=== PATIENT | female | born 1935 | race Caucasian/White ===

== ENCOUNTER → 2019-10-17 | Outpatient (CLI) | payer MEDICARE ==
--- NOTE | 2019-10-17 13:51 | BD ---
EXAMINATION TYPE: Axial Bone Density DATE OF EXAM: 10/17/2019 COMPARISON: NONE CLINICAL HISTORY: Height: 60.7 IN Weight: 190 LBS FRAX RISK QUESTIONS: Glucocorticoids (More than 3mos): YES 5 YEARS PREDNISONE PT DOES NOT KNOW DOSE (Ex: prednisone, prednisolone, methylprednisolone, dexamethasone, and hydrocortisone). History of Fracture in Adulthood: RT ANKLE AGE 59 Secondary Osteoporosis: 3. Menopause before 45: TOTAL HYST AGE 41 RISK FACTORS HISTORY OF: Surgery to Spine: YES L2-L3 AGE 54 Active: MODERATE Diet low in dairy products/other sources of calcium: YES Postmenopausal woman: TOTAL HYST AGE 41 Take estrogen and/or progesterone medications: NOT NOW How long: AGE 41-43 MEDICATIONS: Prednisone or other steroids: YES 5 YEARS PT DOESN'T KNOW DOSAGE Thyroid Medications: YES LEVOTHYROXIN How Lon+ YEARS Additional Medications: CALCIUM, VIT D, PREDNISONE, LEVOTHYROXINE, BLOOD PRESSURE MEDS, LOSARTAN, OM EPRAZOLE, HERBAL LAXATIVES, STOOL SOFTENERS, MULTI VIT, VIT C, Additional History: BREAST CANCER EXAM MEASUREMENTS: Bone mineral densitometry was performed using the [employer] System. Bone mineral density about the R hip (g/cm2): 0.657 Bone mineral density about the L hip (g/cm2): 0.654 T Score values are as follows: -----R Neck: -2.7 -----L Neck: -2.8 -----R Total: -2.6 -----L Total: -2.7 Bone mineral density BASELINE Bone mineral density about the L Wrist (g/cm2): 0.448 T Score values are as follows: -----Dist. R+U: -3.7 -----Prox. R+U: -2.7 -----Radius total: -3.7 Bone mineral density BASELINE IMPRESSION: Osteoporosis NOTE: T-SCORE=SD OF THE YOUNG ADULT MEAN.
== END | disposition home or self-care (01) ==
LOC: RADBDWWP 12:39
PROVIDERS: ATTEND Internal Medicine
DX: M81.8 Other osteoporosis without current pathological fracture (principal)
CPT/HCPCS: 77080

== ENCOUNTER → 2021-01-04 | Outpatient (CLI) | payer MEDICARE, OTHER | END | disposition home or self-care (01) | LOC: LABWHC1 10:36 | PROVIDERS: ATTEND Psychiatry & Neurology Neurology | DX: Z01.812 Encounter for preprocedural laboratory examination (principal); Z20.822 Contact with and (suspected) exposure to COVID-19 | CPT/HCPCS: U0003; C9803 ==

== ENCOUNTER 2022-01-15 19:47 | Inpatient (IN) | payer MEDICARE, OTHER ==
[2022-01-15] MEDS ORDERED: MORPHINE SULFATE 4 MG/ML SYRINGE IVP STA (19:56)
[2022-01-15] MEDS ORDERED: SODIUM CHLORIDE 0.9% 1,000 ML IV STA (19:56)
--- NOTE | 2022-01-15 20:05 | ED ---
General Adult HPI - General Chief complaint: Fall Stated complaint: Fall Time Seen by Provider: 01/15/22 19:48 Source: patient, EMS, RN notes reviewed, old records reviewed Mode of arrival: EMS Limitations: no limitations - History of Present Illness Initial comments: Patient is an 86-year-old female who presents emergency Department after a fall at home. Patient states she was sitting in a chair shortly prior to arrival when she stood up and she didn't trip, she didn't pass out, had no symptoms but fell to her right side and landed directly on her right hip. States she believes she broke it immediately. Denies any loss of consciousness. Uncertain if she hit her head. Denies any other injuries at this time. His no abdominal pain, chest pain, shortness of breath. Denies any blurry vision, weakness. He is neurovascularly intact in the right lower extremity. Is not on blood thinners. Presents for further evaluation at this time. Patient has a past medical history remarkable for hypertension, hyperlipidemia. Received fentanyl and route to the hospital. Patient's only acute complaint at this time is right hip pain. - Related Data Home Medications Medication Instructions Recorded Confirmed Alendronate Sodium [Fosamax] 70 mg PO SA 01/15/22 01/15/22 Ascorbic Acid [Vitamin C] 1,000 mg PO DAILY 01/15/22 01/15/22 Cholecalciferol [Vitamin D3 (25 25 mcg PO DAILY 01/15/22 01/15/22 Mcg = 1000 Iu)] Cyanocobalamin (Vitamin B-12) 1,000 mcg PO DAILY 01/15/22 01/15/22 [Vitamin B-12] Escitalopram [Lexapro] 10 mg PO DAILY 01/15/22 01/15/22 Estradiol Cream [Estrace Cream 1 gm VAGINAL TUFR 01/15/22 01/15/22 0.01%] Ferrous Sulfate [Feosol] 325 mg PO DAILY 01/15/22 01/15/22 Herbilax 2 cap PO HS 01/15/22 01/15/22 Levothyroxine Sodium [Synthroid] 50 mcg PO DAILY 01/15/22 01/15/22 Losartan [Cozaar] 50 mg PO DAILY 01/15/22 01/15/22 Metoprolol Tartrate [Lopressor] 25 mg PO BID 01/15/22 01/15/22 Multivitamins, Thera [Multivitamin 1 tab PO DAILY 01/15/22 01/15/22 (formulary)] Omeprazole 40 mg PO DAILY 01/15/22 01/15/22 Pravastatin Sodium [Pravachol] 40 mg PO HS 01/15/22 01/15/22 Temazepam [Restoril] 15 mg PO HS PRN 01/15/22 01/15/22 bisacodyL [Dulcolax] 10 mg PO HS 01/15/22 01/15/22 hydroCHLOROthiazide [Hydrodiuril] 12.5 mg PO DAILY 01/15/22 01/15/22 Allergies Allergy/AdvReac Type Severity Reaction Status Date / Time ciprofloxacin [From Cipro] Allergy Rash/Hives Verified 01/15/22 20:53 on entire body Review of Systems ROS Statement: Those systems with pertinent positive or pertinent negative responses have been documented in the HPI. Review of Systems: CONST: Denies fever EYES: Denies blurry vision ENT: Denies nasal congestion C/V: Denies Chest pain RESP: Denies shortness of breath GI: Denies abdominal pain : Denies dysuria SKIN: Denies rash. MSK: Endorses right hip pain. NEURO: Denies headache ROS Other: All systems not noted in ROS Statement are negative. Past Medical History Past Medical History: GERD/Reflux, Hyperlipidemia, Hypertension History of Any Multi-Drug Resistant Organisms: None Reported Past Surgical History: Appendectomy, Breast Surgery, Section, Hysterectomy Past Psychological History: No Psychological Hx Reported Smoking Status: Never smoker Past Alcohol Use History: None Reported Past Drug Use History: None Reported General Exam - General Exam Comments Initial Comments: General: Appears in mild to moderate distress secondary to right hip pain. HEAD: Normal with no signs of head trauma. EYES: PERRLA, EOMI, conjunctiva normal, no discharge. Pupils are 2 mm and equal bilaterally. ENT: Hearing grossly intact, normal oropharynx. RESPIRATORY: Clear breath sounds bilaterally. No wheezes, rales, or rhonchi. C/V: Regular rate and rhythm. S1 and S2 auscultated, no edema, peripheral puls es 2+ and intact throughout ABD: Abd is soft, nontender, nondistended EXT: Right leg is shortened, externally rotated and tenderness to palpation over the lateral aspect of the right hip. No midline cervical, thoracic, lumbar spine tenderness to palpation. Pelvis appears stable. SKIN: No rashes or lesions observed on exposed skin. NEURO: Alert and oriented x 4. Cranial nerves II-XII intact. No focal sensory or strength deficits. GCS of 15. Limitations: no limitations Course Vital Signs 01/15/22 01/15/22 01/15/22 19:49 21:32 22:43 Temperature 98.2 F 98.2 F Pulse Rate 60 59 L 58 L Respiratory 16 16 16 Rate Blood Pressure 150/68 109/53 O2 Sat by Pulse 99 99 97 Oximetry 01/16/22 01/16/22 01/16/22 00:43 03:00 04:00 Temperature Pulse Rate 59 L 69 Respiratory 16 16 14 Rate Blood Pressure 102/53 119/52 O2 Sat by Pulse 96 98 Oximetry 01/16/22 01/16/22 01/16/22 05:00 06:46 11:29 Temperature Pulse Rate 62 70 Respiratory 16 16 18 Rate Blood Pressure 135/60 132/62 O2 Sat by Pulse 98 97 Oximetry Medical Decision Making - Medical Decision Making Based on the patient's presentation and physical exam, I'm concerned for acute bony traumatic injury secondary to the fall. This includes right hip fracture. Patient did fall and is uncertain if she hit her head. Due to her age I did recommend we obtain CT imaging of the brain and C-spine as well. As we are obtaining CT imaging, we'll also obtain CT imaging of the right hip as it does appear obviously fractured. She was in agreement this plan. Trauma labs will be obtained. She'll be started on 1 L fluid bolus and given IV analgesia medications. She was in agreement this plan. She is neurovascularly intact distal to the injury. Vital signs within acceptable limits. Patient's laboratory studies are still pending at this time. Chest x-ray as interpreted by myself reveals no acute cardio pulmonary process, no acute infiltrate. No bony traumatic injury. CT brain and C-spine is interpreted by myself reveals no acute intracranial process, injury. No acute cervical spine injury. Radiology interpreted as showing nonspecific white matter changes of the brain which is chronic. There is also mild multilevel level degenerative disc disease. Patient's CT of the pelvis reveals a right hip fracture. Appears to be intertrochanteric. Radiology does agree with this read, rating it as a nondisplaced comminuted intertrochanteric fracture of the right femur and no evidence of intra-articular involvement. I updated the patient. She expressed understanding. She'll require surgery. Fournier catheter was placed. I spoke with the admitting orthopedic surgeon, Dr. Goodman cedeño who was in agreement this plan. Requested the patient be made nothing by mouth. We'll continue IV fluid hydration, pain medications. Likely surgery tomorrow. I will consult the patient's primary care physician, Dr. Hermosillo for medical management. I spoke with him over the phone and he agreed to consult. Patient was therefore admitted in stable condition. - Lab Data Result diagrams: 01/17/22 05:30 01/17/22 05:30 Disposition Clinical Impression: Fall, Nondisplaced intertrochanteric fracture of right femur Disposition: ADMITTED IP TO THIS [facility] Condition: Stable Time of Disposition: 20:59
--- NOTE | 2022-01-15 20:44 | CT ---
EXAMINATION TYPE: CT brain cspine wo con CT DLP: 1423.1 mGycm, Automated exposure control for dose reduction was used. DATE OF EXAM: 01/15/2022 8:36 PM COMPARISON: None.. CLINICAL INDICATION:Female, 86 years old with history of fall; FALL TECHNIQUE: Brain: Multiple axial CT images of the brain were obtained without IV contrast. Cspine: Axial CT images from the skull base to the inferior aspect of T2 we obtained without intraven ous contrast. Coronal and sagittal reformatted images were also reviewed. FINDINGS: Brain: Extra-axial spaces: No abnormal extra-axial fluid collections. Ventricular system: Dilatation in proportion to cerebral atrophy. Cerebral parenchyma: Cerebral atrophy. No acute intraparenchymal hemorrhage or mass effect. The heck -white junction is well differentiated. Scattered hypoattenuating areas are seen within the white mat ter. Cerebellum: Unremarkable. Mass effect: No evidence of midline shift. Intracranial vasculature: Atherosclerotic calcifications of the intracranial vessels. Soft tissues: Normal. Calvarium/osseous structures: No depressed skull fracture. Paranasal sinuses and mastoid air cells: Clear. Visualized orbits: Bilateral aphakia Cervical spine: Fracture: None. Osseous structures: Multilevel degenerative disc disease changes with endplate spurring and disc oste ophyte complex's. Bilateral uncovertebral hypertrophy. Vertebral alignment: Within normal limits. Spinal canal/Neural Foramina: No evidence of significant spinal canal narrowing. Multilevel neural fo raminal narrowing secondary to uncovertebral and facet hypertrophy. Neck soft tissues: Prevertebral soft tissues are within normal limits. Other: The airway is patent. The lung apices are clear. IMPRESSION: 1. No acute intracranial process. 2. Nonspecific white matter changes, likely secondary to chronic small vessel ischemic disease. 3. No evidence of cervical spine fracture. 4. Mild multilevel degenerative disc disease.
--- NOTE | 2022-01-15 20:52 | CT ---
EXAMINATION TYPE: CT pelvis wo con CT DLP: 519.6 mGycm, Automated exposure control for dose reduction was used. DATE OF EXAM: 01/15/2022 8:36 PM COMPARISON: None CLINICAL INDICATION:Female, 86 years old with history of fall. Please scan through mid right femur; F ALL. Pain in right hip TECHNIQUE: Axial CT of the pelvis. Sagittal and coronal reformats were created on a separate worksta tion. Contrast used: None Oral contrast used: without Oral Contrast FINDINGS: PELVIS BLADDER: Unremarkable REPRODUCTIVE: Uterus is absent BOWEL: Scattered diverticula are noted throughout the colon. No evidence of bowel obstruction as visu alized. PERITONEUM: No evidence of pneumoperitoneum or free fluid in the pelvis. VASCULATURE: Mild atherosclerotic calcifications are present throughout the abdominal aorta and its b ranches. No evidence of aortic aneurysm. MUSCULOSKELETAL: Complex comminuted right intertrochanteric fracture with mild foreshortening of the distal fracture margins (series 203, image 70). Femoral head maintains normal alignment with the righ t acetabulum. Multiple displaced osseous fragments, measures 3.8 cm in length (series 203, image 64). No evidence for intra-articular extension. No additional fractures noted. Degenerative and postsurgi melanie changes to the lumbar spine. LYMPH NODES: No gross evidence for lymphadenopathy. SOFT TISSUE/ABDOMINAL WALL: Fat-containing umbilical hernia. Postsurgical changes from prior ventral abdominal wall hernia repair are noted. Mild soft tissue swelling and intramuscular edema of the righ t hip. IMPRESSION: 1. Comminuted intertrochanteric fracture of the right femur without evidence for displacement or intr a-articular involvement. 2. Mild right hip intramuscular and soft tissue edema. 3. Colonic diverticulosis.
--- NOTE | 2022-01-15 20:54 | XR ---
EXAMINATION TYPE: XR chest 1V portable DATE OF EXAM: 01/15/2022 8:40 PM COMPARISON: No relevant priors. TECHNIQUE: XR chest 1V portable . CLINICAL INDICATION:Female, 86 years old with history of trauma; fall. Right hip pain. FINDINGS: Lungs/Pleura: There is no evidence of pleural effusion, focal consolidation, or pneumothorax. Pulmonary vascularity: Unremarkable. Heart/mediastinum: Cardiomediastinal silhouette is unremarkable. Atherosclerotic calcifications are seen in the aorta. Musculoskeletal: No acute osseous pathology. Other findings: Surgical clips project over the bilateral chest angeles. IMPRESSION: No acute cardiopulmonary disease/process.
[2022-01-15] MEDS ORDERED: ONDANSETRON 4 MG/2 ML VIAL IVP PRN (20:59)
[2022-01-15] MEDS ORDERED: NALOXONE 0.4 MG/ML 1 ML VIAL IV PRN (20:59)
[2022-01-15] MEDS ORDERED: NON FORMULARY DRUG (Alendronate Sodium [Fosamax] 70 MG Tablet) PO SCH (21:15)
[2022-01-15] MEDS: HEPARIN SODIUM,PORCINE/PF 5,000 UNIT/0.5 ML SYRINGE SQ SCH (21:31)
[2022-01-15] MEDS: SODIUM CHLORIDE 0.9% 1,000 ML IV SCH (21:31)
--- NOTE | 2022-01-15 21:36 | XR ---
EXAMINATION TYPE: XR femur RT DATE OF EXAM: 01/15/2022 9:27 PM INDICATION: Patient age:Female; 86 years old; Reason for study: fracture; COMPARISON: CT pelvis 01/15/2022 TECHNIQUE: The right femur was examined in 3 projections. FINDINGS: Comminuted intertrochanteric fracture of the right femoral neck with mild foreshortening of the dista l fracture margins. Medially displaced fracture fragment present. Right femoral head with normal alethea omical alignment. Distal femur is normal in appearance. Degenerative changes of the right knee joint which is otherwise normal in appearance. Surgical clips project over the right hemipelvis. IMPRESSION: Comminuted intertrochanteric fracture of the right femur without evidence for displacement.
[2022-01-15 21:38] LABS: Basophils % (A) 0 %; Eosinophils # (A) 0.1 k/uL (0-0.7); Eosinophils % (A) 1 %; HCT 34.7 % (34.0-46.0); HGB 12.3 gm/dL (11.4-16.0); Lymphocytes # (A) 1.2 k/uL (1.0-4.8); Lymphocytes % (A) 10 %; MCH 32.4 pg (25.0-35.0); MCHC 35.4 g/dL (31.0-37.0); MCV 91.5 fL (80.0-100.0); Mean Platelet Volume 7.9; Monocytes # (A) 0.5 k/uL (0-1.0); Monocytes % (A) 4 %; Neutrophils # (A) 10.1 k/uL (1.3-7.7); Neutrophils % (A) 84 %; Platelet Count 213 k/uL (150-450); RDW 12.9 % (11.5-15.5); WBC 12.1 k/uL (3.8-10.6)
[2022-01-15 22:02] LABS: ALT 19 U/L (4-34); AST 30 U/L (14-36); African American GFR (CKD) 41 (>60 ml/min/1.73 sqM); Albumin 4.5 g/dL (3.5-5.0); Alcohol <10 mg/dL; Alkaline Phosphatase 92 U/L (38-126); Anion Gap 10 mmol/L; Blood Urea Nitrogen 18 mg/dL (7-17); Calcium 9.3 mg/dL (8.4-10.2); Carbon Dioxide 23 mmol/L (22-30); Chloride 97 mmol/L (98-107); Glucose 116 mg/dL (74-99); Non-African American GFR(CKD) 36 (>60 ml/min/1.73 sqM); Potassium 3.9 mmol/L (3.5-5.1); Sodium 130 mmol/L (137-145); Total Bilirubin 0.3 mg/dL (0.2-1.3); Total Protein 7.3 g/dL (6.3-8.2)
[2022-01-15 22:18] LABS: Amphetamine Screen,Urine Not Detected (NotDetected); Barbiturate Screen,Urine Not Detected (NotDetected); Benzodiazepines Screen,Urine Detected (NotDetected); Cocaine Screen,Urine Not Detected (NotDetected); Methadone Screen, Urine Not Detected (NotDetected); Opiate Screen,Urine Detected (NotDetected); Oxycodone Screen, Urine Not Detected (NotDetected); Phencyclidine Screen,Urine Not Detected (NotDetected); Tricyclic Antidepressant,Urine Not Detected (NotDetected); Urn Cannabinoid Scrn Not Detected (NotDetected)
[2022-01-15 22:20] LABS: INR 0.9 (<1.2); Partial Thromboplastin Time 26.7 sec (22.0-30.0); Prothrombin Time 9.9 sec (9.0-12.0)
[2022-01-15] MEDS: methocarbamoL 750 MG TAB PO SCH (23:25)
[2022-01-15] MEDS: MORPHINE SULFATE 4 MG/ML SYRINGE IV PRN (23:27)
[2022-01-16] MEDS: MORPHINE SULFATE 4 MG/ML SYRINGE IV PRN ×3 (03:00→10:00)
[2022-01-16] MEDS: LEVOTHYROXINE 50 MCG TAB PO SCH (06:44)
[2022-01-16] MEDS: SODIUM CHLORIDE 0.9% 1,000 ML IV SCH ×2 (06:48→18:48)
[2022-01-16] MEDS ORDERED: TRANEXAMIC ACID 1,000 MG in SODIUM CHLORIDE 0.9% 100 ML IVPB ONE ×4 (07:00)
[2022-01-16 07:15] LABS: Basophils % (A) 0 %; Eosinophils % (A) 0 %; Lymphocytes # (A) 0.8 k/uL (1.0-4.8); Lymphocytes % (A) 8 %; MCH 32.3 pg (25.0-35.0); MCHC 34.9 g/dL (31.0-37.0); MCV 92.5 fL (80.0-100.0); Mean Platelet Volume 8.2; Monocytes # (A) 0.5 k/uL (0-1.0); Monocytes % (A) 5 %; Neutrophils # (A) 7.9 k/uL (1.3-7.7); Neutrophils % (A) 85 %; Platelet Count 204 k/uL (150-450); RBC 3.02 m/uL (3.80-5.40); RDW 13.3 % (11.5-15.5); WBC 9.2 k/uL (3.8-10.6)
[2022-01-16 07:27] LABS: Calcium 8.4 mg/dL (8.4-10.2); Potassium 4.2 mmol/L (3.5-5.1)
[2022-01-16 07:32] LABS: HGB 9.7 gm/dL (11.4-16.0)
--- NOTE | 2022-01-16 10:15 | P.CONS ---
History of Present Illness - Reason for Consult Consult date: 01/16/22 Medical management Requesting physician: Manoj Pickens - Chief Complaint right comminuted interchoanteric fracture - History of Present Illness This is an 86-year-old female patient who presents to the ER after sustaining a fall to her right hip. Patient reports she did not trip or fall or become dizzy she just lost her balance and fell directly on her right hip. X-ray completed showing commuted intertrochanter fracture of the right femur without evidence for displacement. CT of pelvis completed showing right hip fracture mild right hip intramuscular and soft tissue edema. Chest x-ray completed showing no acute cardiopulmonary process. Marking on her T of head and cervical spine completed showing no acute intracranial process nonspecific white matter changes likely secondary to chronic small vessel ischemic disease. No evidence of cervical spine fracture mild multilevel degenerative disc disease. Patient is currently resting comfortably in bed. Patient is complaining of intermittent pain to her right hip patient has been admitted to surgical services planned surgical intervention. Patient denies any history of SD, stroke or irregular heart rhy thm. Patient denies history of PE or DVT. Will order EKG. Patient denies chest pain or shortness of breath. Patient denies nausea vomiting or diarrhea. Patient denies any urinary burning or frequency. Temp 98.2, heart rate 62, respiratory rate 16, blood pressure 135/60 and pulse ox 98% on room air. Creatinine 1.13 but 16. Review of Systems please refer to HPI otherwise unremarkable Past Medical History Past Medical History: GERD/Reflux, Hyperlipidemia, Hypertension History of Any Multi-Drug Resistant Organisms: None Reported Past Surgical History: Appendectomy, Breast Surgery, Section, Hysterectomy Past Psychological History: No Psychological Hx Reported Smoking Status: Never smoker Past Alcohol Use History: None Reported Past Drug Use History: None Reported Medications and Allergies Home Medications Medication Instructions Recorded Confirmed Type Alendronate Sodium [Fosamax] 70 mg PO SA 01/15/22 01/15/22 History Ascorbic Acid [Vitamin C] 1,000 mg PO DAILY 01/15/22 01/15/22 History Cholecalciferol [Vitamin D3 (25 25 mcg PO DAILY 01/15/22 01/15/22 History Mcg = 1000 Iu)] Cyanocobalamin (Vitamin B-12) 1,000 mcg PO DAILY 01/15/22 01/15/22 History [Vitamin B-12] Escitalopram [Lexapro] 10 mg PO DAILY 01/15/22 01/15/22 History Estradiol Cream [Estrace Cream 1 gm VAGINAL TUFR 01/15/22 01/15/22 History 0.01%] Ferrous Sulfate [Feosol] 325 mg PO DAILY 01/15/22 01/15/22 History Herbilax 2 cap PO HS 01/15/22 01/15/22 History Levothyroxine Sodium [Synthroid] 50 mcg PO DAILY 01/15/22 01/15/22 History Losartan [Cozaar] 50 mg PO DAILY 01/15/22 01/15/22 History Metoprolol Tartrate [Lopressor] 25 mg PO BID 01/15/22 01/15/22 History Multivitamins, Thera [Multivitamin 1 tab PO DAILY 01/15/22 01/15/22 History (formulary)] Omeprazole 40 mg PO DAILY 01/15/22 01/15/22 History Pravastatin Sodium [Pravachol] 40 mg PO HS 01/15/22 01/15/22 History Temazepam [Restoril] 15 mg PO HS PRN 01/15/22 01/15/22 History bisacodyL [Dulcolax] 10 mg PO HS 01/15/22 01/15/22 History hydroCHLOROthiazide [Hydrodiuril] 12.5 mg PO DAILY 01/15/22 01/15/22 History Allergies Allergy/AdvReac Type Severity Reaction Status Date / Time ciprofloxacin [From Cipro] Allergy Rash/Hives Verified 01/15/22 20:53 on entire body Physical Exam Vitals: Vital Signs Temp Pulse Resp BP Pulse Ox 01/16/22 06:46 62 16 135/60 98 01/16/22 05:00 16 01/16/22 04:00 14 01/16/22 03:00 69 16 119/52 98 01/16/22 00:43 59 L 16 102/53 96 01/15/22 22:43 58 L 16 109/53 97 01/15/22 21:32 98.2 F 59 L 16 99 01/15/22 19:49 98.2 F 60 16 150/68 99 Intake and Output 01/15/22 01/16/22 01/16/22 22:59 06:59 14:59 Output Total 200 Balance -200 Output: Urine 200 Uretheral (Fournier) 200 Other: Weight 73.482 kg Head normocephalic Neck supple Lungs clear to auscultation bilaterally no wheezing or crackles Heart regular rate and rhythm S1-S2, no rub or gallop Abdomen is soft nontender nondistended positive bowel sounds no hepatosplenomegaly Extremities no edema Neuro alert and orientated to 3 Results CBC & Chem 7: 01/16/22 06:29 12 06:29 Labs: Abnormal Lab Results - Last 24 Hours (Table) 01/15/22 01/15/22 01/15/22 Range/Units 21:20 21:20 21:44 WBC 12.1 H (3.8-10.6) k/uL RBC (3.80-5.40) m/uL Hgb (11.4-16.0) gm/dL Hct (34.0-46.0) % Neutrophils # 10.1 H (1.3-7.7) k/uL Lymphocytes # (1.0-4.8) k/uL Sodium 130 L (137-145) mmol/L Chloride 97 L (98-107) mmol/L BUN 18 H (7-17) mg/dL Creatinine 1.33 H (0.52-1.04) mg/dL Glucose 116 H (74-99) mg/dL Urine Opiates Screen Detected H (NotDetected) U Benzodiazepines Scrn Detected H (NotDetected) 01/16/22 01/16/22 Range/Units 06:29 06:29 WBC (3.8-10.6) k/uL RBC 3.02 L (3.80-5.40) m/uL Hgb 9.7 L D (11.4-16.0) gm/dL Hct 28.0 L (34.0-46.0) % Neutrophils # 7.9 H (1.3-7.7) k/uL Lymphocytes # 0.8 L (1.0-4.8) k/uL Sodium 131 L (137-145) mmol/L Chloride (98-107) mmol/L BUN (7-17) mg/dL Creatinine 1.13 H (0.52-1.04) mg/dL Glucose 116 H (74-99) mg/dL Urine Opiates Screen (NotDetected) U Benzodiazepines Scrn (NotDetected) Assessment and Plan Assessment: 1. Right comminuted intertrochanter fracture. 2. History of fall without loss of consciousness 3. History of GERD 4. Essential hypertension 5. Hyperlipidemia Thank you for this consultation we will continue to follow patient closely throughout stay EKG ordered Repeat labs ordered Time with Patient: Greater than 30 (Greater than 60% of the total time spent in counseling and coordination of care)
--- NOTE | 2022-01-16 13:40 | P.PN ---
Progress Note - Text Progress Note Date: 01/16/22 Orthopedic Surgery Risk Review Mirna is a 86-year-old female presenting for evaluation of sudden onset right hip pain, inability to ambulate after . Standing. It was my pleasure to have seen and examined Mirna. In our visit today we have had a chance to go over subjective complaints, physical examination findings and treatments including the natural course history without intervention and various interventional options. her imaging demonstrates right intertrochanteric fracture 3 part displaced unstable. On physical exam, Mirnademonstrates pain with motion of right lower extremity, which is NV intact at this time. I have explained to the patient that this fracture needs stabilization. Based on the patients imaging, physical exam, and the rapid progression and disabling nature of her symptoms, at this time I recommend surgery in the form or a: right hip intramedullary nail fixation I discussed the risk and benefits of this procedure at length with Mirna and her . Questions were invited and answered, and the patient wishes to proceed as outlined below. Currently, I am recommendin. right hip intramedullary nail fixation 2. Review of surgical risks and benefits as well as an educational packet on the proposed surgical procedure. Risks: All surgical procedures come with inherent risks, including those related to positioning, anesthesia, intraoperative findings, and postoperative complications. It is important to understand that surgery does not come with any guarantee of a successful outcome as complications and adverse events are always possible. The patient was given a handout discussing the surgical procedure and risks associated with the intervention, both of which were discussed with the patient. These risks include but are not limited to the following: - Experiencing same, different or even worse symptoms compared to before surgery. - Requiring further surgery or other forms of treatment presently or at some time in the future . - On an extreme but fortunately relatively rare basis severe complication such as blindness, stroke, heart attack, temporary and/or permanent nerve injury, paralysis, coma, or may occur, sometimes without known explanation. - Surgical complications may include but are not limited to risk of infection, fluid accumulation in the surgical dissection site, including a seroma or hematoma, that requires additional surgery, wound drainage, bleeding, new numbness or weakness, vision changes/loss, spinal fluid leakage, non-healing and/or infected incision, headaches, difficulty or inability to swallow, hoarseness, hemopneumothorax, pneumothorax, injury to nerves, spinal cord, blood vessels, lymphatics or other vital organs (i.e., bowel injury, injury to the great vessels); heterotopic bone formation; complications related to the hardware such as screws, rods, including misplaced hardware, device failure, hardware fracture/breakage, or hardware loosening; retained surgical instrumentations or devices and the need for further surgery. - Medical risks of the planned surgery include but are not limited to generalized Infections to the whole body or local areas outside of the surgical site (sepsis), heart attack, bleeding, anaphylaxis, meningitis, seizure, epilepsy, hearing loss, burn farrar, laceration of the head or other areas of the body, bruising, hypersensitivity of the skin, bladder over distension; allergic reaction; shoulder injury related to positioning; fat, blood and air clots to other areas of the body like heart, lungs, brain; failure of internal organs such as lungs, kidneys, liver and excessive bleeding. If blood transfusions are necessary, note that transfusions may cause intolerance reactions such as anaphylaxis or other complex reactions. Despite best efforts, the results of surgery might not heal in terms of bone, soft tissues such as skin, fascia, ligaments, and joints. [facility] has multiple operating rooms with single and overlapping rooms running daily. They currently function under the required guidelines as produced by the [facility] with regards to the overlapping rooms and will continue to comply with changes to this policy as they occur. The requirements include and are complied with as follows: (1) the critical portions of the overlapping rooms will not occur at the same time, (2) the attending physician will be physically present during the critical portions of the procedure and immediately available during the entire case, and (3) a back-up attending is designated should the primary attending not be immediately available. The patient has had a chance to review all the listed information, has been given print outs detailing this information, and has had all his/her questions answered to their satisfaction. It was my pleasure to have seen and examined Mirna. In our visit today we have had a chance to go over my understanding of our patient's current condition, the natural course history without intervention and various interventional options. Questions were invited and answered, and the patient wishes to proceed as outlined above. I have seen and examined the patient for 25 minutes and we have spent more than 50% of the time in repeat and detailed counseling about the patient's condition, its natural course history with out and as much as can be predicted with surgery and re-review of various surgical treatment options. In conclusion, Mirna and her requested we proceed with the above suggested surgery and are willing to accept risks and limitations of the suggested surgery as nature of the disease process and our best attempts at treatment for the condition. Thank you again for allowing us to be part of your patient's care. Please don't hesitate to contact me if you have any further questions. Signed and authenticated by: Manoj Soto [facility] [address] [facility], [address] [address]
--- NOTE | 2022-01-16 13:52 | P.HPOR ---
History of Present Illness H&P Date: 01/16/22 Chief Complaint: Right intertrochanteric femur fracture Patient is a 6-year-old female who presented to [facility] on 01/15/2022 after falling and injuring the right lower extremity at home. Patient was brought to [facility] for further evaluation. Imaging test demonstrated a displaced and comminuted right intertrochanteric femur fracture. Patient was admitted under our orthopedic care with plan for surgical intervention. Internal medicine was consulted for management. Patient was evaluated today in the emergency room, her was present at bedside. She notes also pain in the right lower extremity with any movement. She denies any other orthopedic problems at this time. She had a previous right ankle fracture with hardware that was removed. She's had no surgery to the right hip she states. Side the right lower extremity, there is no other orthopedic complaints at this time. Denies any headaches, lightheadedness, chest pain, shortness of breath, fevers or chills, nausea or vomiting. Review of Systems Constitutional: Reports as per HPI Past Medical History Past Medical History: GERD/Reflux, Hyperlipidemia, Hypertension History of Any Multi-Drug Resistant Organisms: None Reported Past Surgical History: Appendectomy, Breast Surgery, Section, Hysterectomy Past Psychological History: No Psychological Hx Reported Smoking Status: Never smoker Past Alcohol Use History: None Reported Past Drug Use History: None Reported Medications and Allergies Home Medications Medication Instructions Recorded Confirmed Type Alendronate Sodium [Fosamax] 70 mg PO SA 01/15/22 01/15/22 History Ascorbic Acid [Vitamin C] 1,000 mg PO DAILY 01/15/22 01/15/22 History Cholecalciferol [Vitamin D3 (25 25 mcg PO DAILY 01/15/22 01/15/22 History Mcg = 1000 Iu)] Cyanocobalamin (Vitamin B-12) 1,000 mcg PO DAILY 01/15/22 01/15/22 History [Vitamin B-12] Escitalopram [Lexapro] 10 mg PO DAILY 01/15/22 01/15/22 History Estradiol Cream [Estrace Cream 1 gm VAGINAL TUFR 01/15/22 01/15/22 History 0.01%] Ferrous Sulfate [Feosol] 325 mg PO DAILY 01/15/22 01/15/22 History Herbilax 2 cap PO HS 01/15/22 01/15/22 History Levothyroxine Sodium [Synthroid] 50 mcg PO DAILY 01/15/22 01/15/22 History Losartan [Cozaar] 50 mg PO DAILY 01/15/22 01/15/22 History Metoprolol Tartrate [Lopressor] 25 mg PO BID 01/15/22 01/15/22 History Multivitamins, Thera [Multivitamin 1 tab PO DAILY 01/15/22 01/15/22 History (formulary)] Omeprazole 40 mg PO DAILY 01/15/22 01/15/22 History Pravastatin Sodium [Pravachol] 40 mg PO HS 01/15/22 01/15/22 History Temazepam [Restoril] 15 mg PO HS PRN 01/15/22 01/15/22 History bisacodyL [Dulcolax] 10 mg PO HS 01/15/22 01/15/22 History hydroCHLOROthiazide [Hydrodiuril] 12.5 mg PO DAILY 01/15/22 01/15/22 History Allergies Allergy/AdvReac Type Severity Reaction Status Date / Time ciprofloxacin [From Cipro] Allergy Rash/Hives Verified 01/15/22 20:53 on entire body Physical Examination Right lower extremity: Obvious shortening and external rotation of the extremity when compared to contralateral side Mild soft tissue swelling present in the proximal femur areas of ecchymosis. There is no obvious open skin lesions. Calf is soft, no tenderness with palpation. Plantar flexion dorsiflexion, EHL, FHL are intact. Range of motion along with knee range of motion was not assessed due to pain. Patient straight leg raise. Logroll maneuver obviously reproduces pain in the hip. Sensory exam to light touch throughout the extremity is intact, no focal deficits Dorsalis pedis pulses 2+ Results - Labs Labs: Abnormal Lab Results - Last 24 Hours (Table) 01/15/22 01/15/22 01/15/22 Range/Units 21:20 21:20 21:44 WBC 12.1 H (3.8-10.6) k/uL RBC (3.80-5.40) m/uL Hgb (11.4-16.0) gm/dL Hct (34.0-46.0) % Neutrophils # 10.1 H (1.3-7.7) k/uL Lymphocytes # (1.0-4.8) k/uL Sodium 130 L (137-145) mmol/L Chloride 97 L (98-107) mmol/L BUN 18 H (7-17) mg/dL Creatinine 1.33 H (0.52-1.04) mg/dL Glucose 116 H (74-99) mg/dL Urine Opiates Screen Detected H (NotDetected) U Benzodiazepines Scrn Detected H (NotDetected) 01/16/22 01/16/22 Range/Units 06:29 06:29 WBC (3.8-10.6) k/uL RBC 3.02 L (3.80-5.40) m/uL Hgb 9.7 L D (11.4-16.0) gm/dL Hct 28.0 L (34.0-46.0) % Neutrophils # 7.9 H (1.3-7.7) k/uL Lymphocytes # 0.8 L (1.0-4.8) k/uL Sodium 131 L (137-145) mmol/L Chloride (98-107) mmol/L BUN (7-17) mg/dL Creatinine 1.13 H (0.52-1.04) mg/dL Glucose 116 H (74-99) mg/dL Urine Opiates Screen (NotDetected) U Benzodiazepines Scrn (NotDetected) H & H 01/15/22 01/16/22 Range/Units 21:20 06:29 Hgb 12.3 9.7 L D (11.4-16.0) gm/dL Hct 34.7 28.0 L (34.0-46.0) % Coagulation 01/15/22 Range/Units 21:20 INR 0.9 (<1.2) Result Diagrams: 01/16/22 06:29 01/16/22 06:29 - Diagnostic results Hip x-ray: report reviewed, image reviewed (X-rays of the right hip and femur were reviewed. Images demonstrate an obvious displaced and comminuted right intertrochanteric femur fracture.) Assessment and Plan Assessment: Displaced and comminuted right intertrochanteric femur fracture Status post fall sustaining Other medical comorbidities Plan: I was able to discuss the case, this concluded the physical exam findings and imaging studies my attending Dr. Pickens. Discussed surgical interventions with the patient and family today bedside, this to include intramedullary nail fixation of the right intertrochanteric fracture. Risk and benefits of the procedure were discussed the patient, this to include but not excluded infection, blood loss, neurovascular injury, developmental blood clots, and adequate healing of bone, possible need for subsequent surgery. Patient and family are in good understanding and would like to proceed. Patient was made nothing by mouth since being admitted to the hospital, this has remained Medicines recommendations Pain control, will use of both oral and IV medications as needed DVT prophylaxis, subcu medication to start after surgery PT/OT after surgery Further recommendations to follow Time with Patient: Less than 30
[2022-01-16] MEDS ORDERED: PHENYLEPHRINE-0.9% NACL SYG 1,000 MCG/10 ML SYRINGE ONE (13:54)
[2022-01-16] MEDS ORDERED: TRANEXAMIC ACID IN NACL,ISO-OS 1,000 MG/100 ML BAG ONE (13:54)
[2022-01-16] MEDS ORDERED: KETAMINE 10 MG/ML 20 ML VIAL ONE (13:54)
[2022-01-16] MEDS ORDERED: SODIUM CHLORIDE 0.9% 1,000 ML IV ONE (13:54)
[2022-01-16] MEDS ORDERED: MIDAZOLAM 2 MG/2 ML VIAL ONE (13:54)
[2022-01-16] MEDS ORDERED: ceFAZolin 1,000 MG in SODIUM CHLORIDE 0.9% 1,000 ML IRRIGATION ONE (14:23)
[2022-01-16] MEDS ORDERED: LACTATED RINGERS 1,000 ML IV ONE (14:40)
[2022-01-16] MEDS ORDERED: Acetaminophen-Codeine 300-30mg TAB PO PRN (15:11)
[2022-01-16] MEDS ORDERED: HYDROmorphone 0.5 MG/0.5 ML SYRINGE IVP PRN (15:11)
[2022-01-16] MEDS ORDERED: HYDROcodone/APAP 5-325MG 1 EACH TAB PO PRN (15:11)
[2022-01-16] MEDS ORDERED: traMADol 50 MG TAB PO PRN (15:11)
[2022-01-16] MEDS ORDERED: MAGNESIUM HYDROXIDE 2,400 MG/10 ML CUP PO PRN (15:11)
[2022-01-16] MEDS: ESCITALOPRAM 10 MG TAB PO SCH (16:29)
[2022-01-16] MEDS: LOSARTAN 50 MG TAB PO SCH (16:30)
[2022-01-16] MEDS: hydroCHLOROthiazide 12.5 MG CAP PO SCH (16:30)
[2022-01-16] MEDS: PANTOPRAZOLE 40 MG TABLET PO SCH (16:30)
[2022-01-16] MEDS: methocarbamoL 750 MG TAB PO SCH ×4 (16:30→21:21)
[2022-01-16] MEDS: METOPROLOL TARTRATE 25 MG TAB PO SCH ×2 (16:30→20:49)
[2022-01-16] MEDS: HEPARIN SODIUM,PORCINE/PF 5,000 UNIT/0.5 ML SYRINGE SQ SCH ×2 (16:30→20:49)
--- NOTE | 2022-01-16 17:05 | XR ---
OR fluoroscopy right hip. COMPARISON: None. Fluoroscopy and fluoroscopic spot films were obtained demonstrating open reduction and internal fixat ion of an intertrochanteric fracture of the right hip. Following the procedure there appears to be ne ar anatomic alignment. Total exposure time was 1 minute and 9 seconds. The total dose area product in Gycm2 is 5.92 IMPRESSION: Fluoroscopic spot films and fluoroscopy was provided in the OR for open reduction internal fixation o f an intertrochanteric fracture of the right.
[2022-01-16] MEDS: HYDROcodone/APAP 7.5-325MG 1 EACH TAB PO PRN (18:14)
[2022-01-16] MEDS: HYDROmorphone 0.5 MG/0.5 ML SYRINGE IVP PRN (19:27)
[2022-01-16] MEDS: SENNOSIDES-DOCUSATE SODIUM 1 EACH TAB PO SCH (20:49)
[2022-01-16] MEDS: bisacodyL 5 MG TABLET.DR PO SCH (20:49)
[2022-01-16] MEDS: PRAVASTATIN SODIUM 40 MG TAB PO SCH (21:25)
[2022-01-17] MEDS: SODIUM CHLORIDE 0.9% 1,000 ML IV SCH ×2 (03:46→14:46)
[2022-01-17] MEDS: HYDROmorphone 0.5 MG/0.5 ML SYRINGE IVP PRN (03:46)
[2022-01-17] MEDS: LEVOTHYROXINE 50 MCG TAB PO SCH (06:12)
--- NOTE | 2022-01-17 07:27 | FL ---
Intraoperative/procedural fluoroscopic services were provided. Total fluoroscopy time is 1 minute wit h a total of 9 submitted images to PACS. Please see the operative/procedural note for further details .
--- NOTE | 2022-01-17 07:55 | P.OP ---
Date of Procedure: 01/16/22 Preoperative Diagnosis: 1. Right IT fracture, 3 part, displaced 2. s/p ffs Postoperative Diagnosis: 1. Right IT fracture, 3 part, displaced 2. s/p ffs Procedure(s) Performed: 1. Right hip intertrochanteric nail fixation with manipulation (02049) Implants: [employer] Intertan, Short, 13 x 125 Anesthesia: GETA Surgeon: Manoj Pickens [employer] Administrator #1: Alan Ash (Was present and assisted in all aspects of the case from positioniing to dressing placement) Estimated Blood Loss (ml): 100 IV fluids (ml): 300 Urine output (ml): 350 Pathology: none sent Condition: stable Disposition: PACU Indications for Procedure: Mirna is a 86-year-old female presenting for evaluation of sudden onset right hip pain, inability to ambulate after . Standing. It was my pleasure to have seen and examined Mirna. In our visit today we have had a chance to go over subjective complaints, physical examination findings and treatments including the natural course history without intervention and various interventional options. her imaging demonstrates right intertrochanteric fracture 3 part displaced unstable. On physical exam, Mirnademonstrates pain with motion of right lower extremity, which is NV intact at this time. I have explained to the patient that this fracture needs stabilization. Based on the patients imaging, physical exam, and the rapid progression and disabling n ature of her symptoms, at this time I recommend surgery in the form or a: right hip intramedullary nail fixation I discussed the risk and benefits of this procedure at length with Mirna and her . Questions were invited and answered, and the patient wishes to proceed as outlined below. Currently, I am recommendin. right hip intramedullary nail fixation Description of Procedure: The patient was seen and examined in the preoperative area. All preoperative protocols were followed. Informed consent was obtained risks and benefits of the procedure were discussed at length. Risks including bleeding infection damage to the surrounding tissue and risk of reoperation were discussed with the patient. Risk of anesthesia up to and including was a discussed with the patient. These are outlined in the risk reviewed. They were willing to accept these risks and all of the risks of surgery. The patient was given a weight- based dose of antibiotics in the form of 2 g Ancef. The patient was seen and evaluated by the anesthesia team who deemed them fit for surgery. The site was marked, the patient was willing to proceed with the procedure. The patient was transferred to the operative suite by the Department of anesthesia. There were then drifted off to sleep by the department of anesthesia and spinal with sedation anesthesia was used. Once adequate anesthesia had been obtained the patient was carefully transferred to the operative bed. All bony prominences were padded accordingly. SCDs were placed on the nonoperative lower extremities. Arms were well padded. patient was carefully placed on a hand table right leg was placed ahead of the left leg was placed in a well leg hurst she was secured to the table and post was secured. Gentle traction and internal rotation and abduction of the right hip was performed for reduction maneuver. C-arm confirmed good position Preoperative briefing was done with the operative team and everyone was ready for the procedure to start. The patients right leg was then prepped and draped in the normal sterile fashion. Timeout was then performed and all parties in agreement with the procedure to be performed. 2 same or skin incision was made 2 cm above the greater trochanter blunt dissection taken down to palpate the greater trochanter the sharp awl was then used to access the femoral canal than ideal starting point on AP and lateral fluoroscopy. Once this was accomplished to guidewire was passed into the femur. This is confirming good position on AP and lateral. Opening reamer was then placed over this followed by sequential reaming. We then selected a 125 short nail to be placed. This was placed over the ball-tipped guidewire and packed in position under AP and lateral fluoroscopy until was not ideal position. We then placed the jig for the lag screw skin incision was made and blunt dissection taken down of the femur over the lateral aspect and the jig was secured next to bone. guide pin Was then placed and confirmed to be within 10 mm under AP and lateral fluoroscopy and center center within the head and neck. We then measured and drilled for the compression screw followed by the lag screw these were then placed we did obtain about 5 mm of compression of the fracture which helped with alignment. We then turned our attention distally to the static locking hole through the jig a guide was placed skin neck was made and the guide was secured next of bone. Then drilled and measured for a distal locking screw. We locked the nail proximally we took final imaging confirming all placement of screws and hardware in good position. Outrigger jig was then removed. We copiously irrigated the wound with normal sterile saline deep fascia was closed with 0 Vicryl superficial fascia closed with 2-0 Vicryl and skin closed skin candido. The wound was then dressed sterilely with Opteform dressings. The patient was then transferred back to their hospital bed. There were awakened by department of anesthesia having tolerated the procedure very well with no complications. The patient was then transported to the postoperative care unit in stable condition.
--- NOTE | 2022-01-17 07:58 | P.PN ---
Subjective Progress Note Date: 01/17/22 Principal diagnosis: rright IT fracture patient seen and examined she doing fairly well she has not been up. She complains of pain in her hip with motion. She complains of spasm in her leg. She denies fevers chills or chest pain overnight. Objective - Vital Signs Vital signs: Vital Signs Temp 100.4 F H 01/17/22 04:58 Pulse 73 01/17/22 04:58 Resp 16 01/17/22 04:58 BP 107/68 01/17/22 04:58 Pulse Ox 92 L 01/17/22 07:49 FiO2 Intake & Output 01/16/22 01/17/22 01/17/22 18:59 06:59 18:59 Intake Total 601 1200 Output Total 900 475 Balance -299 725 Weight 73.482 kg Intake: IV 601 Intake, IV Titration 1200 Amount Sodium Chloride 0.9% 1, 1200 000 ml @ 100 mls/hr IV . Q10H REBECA Rx#:[id number] Output: Urine 800 475 Estimated Blood Loss 100 Other: Voiding Method Indwelling Catheter - Exam Physical Exam: -Patient is alert and oriented 3 appears well-nourished well-hydrated is in no acute distress. They do not appear septic. -There is TTP right hip and incision [-Incision is CDI, no EEE, no drainage] -Upper extremities show [5] out of 5 strength in all major muscle groups. [##EXCEPT] -Lower extremities with [5] out of 5 strength in all major muscle groups except right lower extremity secondary to pain -There is [FROM] that is [painless] of the b/l UE and LE in all major joints. except right lower extremity secondary to pain -They are intact to light touch sensation in C5 to T1 and L2 to S1 nerve distribution. -DTR [2]/4 all upper and lower extremities -Patient has palpable distal pulses all 4 ext -Compartments are soft and compressible. -Patient shows a negative Libby's [-Neg Hoffmans b/l] [-Neg Clonus b/l] [-Neg babinski b/l] Cranial nerves II through XII are grossly intact. - Labs CBC & Chem 7: 01/16/22 06:29 01/16/22 06:29 Assessment and Plan Assessment: a 86-year-old female postop day 1 right intramedullary nail fixation for right IT fracture status post fall from standing Plan: -weightbearing as tolerated right lower extremity - pain control when necessary - GI prophylaxis - chemo DVT prophylaxis 4 weeks - PT OT daily, increase strength ambulation and gait - medical management - GUILHERME when appropriate
[2022-01-17] MEDS: methocarbamoL 750 MG TAB PO SCH (08:49)
[2022-01-17] MEDS: METOPROLOL TARTRATE 25 MG TAB PO SCH ×2 (08:49→20:36)
[2022-01-17] MEDS: hydroCHLOROthiazide 12.5 MG CAP PO SCH (08:49)
[2022-01-17] MEDS: PANTOPRAZOLE 40 MG TABLET PO SCH (08:49)
[2022-01-17] MEDS: HEPARIN SODIUM,PORCINE/PF 5,000 UNIT/0.5 ML SYRINGE SQ SCH ×2 (08:49→20:36)
[2022-01-17] MEDS: ESCITALOPRAM 10 MG TAB PO SCH (08:50)
[2022-01-17] MEDS: LOSARTAN 50 MG TAB PO SCH (08:50)
[2022-01-17 09:01] LABS: African American GFR (CKD) 52.3 (60.0-200.0); Albumin 3.4 g/dL (3.8-4.9); Anion Gap 9.2 mmol/L (10.00-18.00); BUN/Creat Ratio 11.82 Ratio (12.00-20.00); Calcium 8.4 mg/dL (8.7-10.3); Carbon Dioxide 22.8 mmol/L (20.0-27.5); Globulin 1.7 g/dL (1.6-3.3); Non-African American GFR(CKD) 45.1 (60.0-200.0); Total Bilirubin 0.2 mg/dL (0.30-1.20); Total Protein 5.1 g/dL (6.2-8.2)
[2022-01-17 09:27] LABS: Basophils # (A) 0.02 X 10*3/uL (0.00-0.10); Basophils % (A) 0.2 %; Eosinophils # (A) 0 X 10*3/uL (0.04-0.35); Eosinophils % (A) 0 %; HCT 23.2 % (37.2-46.3); HGB 7.5 g/dL (12.0-15.0); Immature Grans, Automated 0.3 %; Lymphocytes # (A) 0.75 X 10*3/uL (0.90-5.00); Lymphocytes % (A) 8.4 %; MCH 31.5 pg (27.0-32.0); MCHC 32.3 g/dL (32.0-37.0); MCV 97.5 fL (80.0-97.0); Mean Platelet Volume 9.9 fL (9.5-12.2); Monocytes # (A) 1.02 X 10*3/uL (0.20-1.00); Monocytes % (A) 11.4 %; NRBC Per 100 WBC 0 /100 WBCS (0.0-0.0); Neutrophils # (A) 7.09 X 10*3/uL (1.80-7.70); Neutrophils % (A) 79.7 %; Platelet Count 176 X 10*3/uL (140-440); RBC 2.38 X 10*6/uL (4.10-5.20); RDW 13.4 % (11.5-14.5); WBC 8.91 X 10*3/uL (4.50-10.00)
[2022-01-17] MEDS: HYDROcodone/APAP 7.5-325MG 1 EACH TAB PO PRN ×2 (09:54→18:43)
[2022-01-17] MEDS: CYCLOBENZAPRINE 5 MG TAB PO PRN (18:43)
--- NOTE | 2022-01-17 19:25 | P.PN ---
Subjective Progress Note Date: 01/17/22 This is an 86-year-old female patient who presents to the ER after sustaining a fall to her right hip. Patient reports she did not trip or fall or become dizzy she just lost her balance and fell directly on her right hip. X-ray completed showing commuted intertrochanter fracture of the right femur without evidence for displacement. CT of pelvis completed showing right hip fracture mild right hip intramuscular and soft tissue edema. Chest x-ray completed showing no acute cardiopulmonary process. Marking on her T of head and cervical spine completed showing no acute intracranial process nonspecific white matter changes likely secondary to chronic small vessel ischemic disease. No evidence of cervical spine fracture mild multilevel degenerative disc disease. Patient is currently resting comfortably in bed. Patient is complaining of intermittent pain to her right hip patient has been admitted to surgical services planned surgical intervention. Patient denies any history of [place], stroke or irregular heart rhythm. Patient denies history of PE or DVT. Will order EKG. Patient denies chest pain or shortness of breath. Patient denies nausea vomiting or diarrhea. Patient denies any urinary burning or frequency. Temp 98.2, heart rate 62, respiratory rate 16, blood pressure 135/60 and pulse ox 98% on room air. Creatinine 1.13 but 16. On 01/17/2022 patient was seen and examined on the medical floor she is alert and oriented 3 in no distress there is no fever or chills no headache or dizziness no chest pain no shortness of breath no cough no nausea or vomiting no abdominal pain no diarrhea and no urinary symptoms. Vital exam reveals a temperature of 99.6 pulse 64 respiration 18 and blood pressure 94/60 pulse ox 91% on room air. Laboratory data reveals a white blood count of 8.9 hemoglobin 7.5 platelet count 176 sodium 134 potassium 4.0 chloride 102 CO2 22.8 BUN 13 and creatinine 1.1 patient underwent right hip intertrochanteric nail fixation with manipulation yesterday. For DVT prophylaxis she is maintained on subcu heparin Objective - Vital Signs Vital signs: Vital Signs Temp 99.6 F 01/17/22 11:12 Pulse 64 01/17/22 11:12 Resp 18 01/17/22 11:12 BP 94/60 01/17/22 11:12 Pulse Ox 91 L 01/17/22 11:12 FiO2 Intake & Output 01/16/22 01/17/22 01/17/22 18:59 06:59 18:59 Intake Total 601 1200 Output Total 900 475 300 Balance -299 725 -300 Weight 73.482 kg Intake: IV 601 Intake, IV Titration 1200 Amount Sodium Chloride 0.9% 1, 1200 000 ml @ 100 mls/hr IV . Q10H [facility] Rx#:[id number] Output: Urine 800 475 300 Estimated Blood Loss 100 Other: Voiding Method Indwelling Catheter Indwelling Catheter - Exam In general patient is alert and oriented x 3 in no distress HEENT head normocephalic and atraumatic Neck is supple no JVD no goiter no lymphadenopathy no carotid bruit Chest examination is clear to auscultation no crackles no wheezing Cardiac exam reveals regular heart sounds S1 and S2 no gallops no murmurs Abdomen is soft nontender no organomegaly with normal bowel sounds Extremity exam reveals no edema no cyanosis or clubbing Neurological examination reveals no gross focal deficits - Labs CBC & Chem 7: 01/17/22 05:30 01/17/22 05:30 Labs: Abnormal Lab Results - Last 24 Hours (Table) 01/17/22 01/17/22 Range/Units 05:30 05:30 RBC 2.38 L (4.10-5.20) X 10*6/uL Hgb 7.5 L (12.0-15.0) g/dL Hct 23.2 L (37.2-46.3) % MCV 97.5 H (80.0-97.0) fL Lymphocytes # 0.75 L (0.90-5.00) X 10*3/uL Monocytes # 1.02 H (0.20-1.00) X 10*3/uL Eosinophils # 0 L (0.04-0.35) X 10*3/uL Sodium 134 L (135-145) mmol/L Anion Gap 9.20 L (10.00-18.00) mmol/L Est GFR (CKD-EPI)AfAm 52.3 L (60.0-200.0) Est GFR (CKD-EPI)NonAf 45.1 L (60.0-200.0) BUN/Creatinine Ratio 11.82 L (12.00-20.00) Ratio Glucose 111 H (70-110) mg/dL Calcium 8.4 L (8.7-10.3) mg/dL Total Bilirubin 0.20 L (0.30-1.20) mg/dL Total Protein 5.1 L (6.2-8.2) g/dL Albumin 3.4 L (3.8-4.9) g/dL Assessment and Plan Assessment: 1. Right comminuted intertrochanter fracture. 2. History of fall without loss of consciousness 3. History of GERD 4. Essential hypertension 5. Hyperlipidemia Thank you for this consultation we will continue to follow patient closely throughout stay EKG ordered Repeat labs ordered
[2022-01-17] MEDS: SENNOSIDES-DOCUSATE SODIUM 1 EACH TAB PO SCH (20:36)
[2022-01-17] MEDS: bisacodyL 5 MG TABLET.DR PO SCH (20:36)
[2022-01-17] MEDS: PRAVASTATIN SODIUM 40 MG TAB PO SCH (20:36)
[2022-01-18] MEDS: SODIUM CHLORIDE 0.9% 1,000 ML IV SCH ×3 (00:16→21:56)
[2022-01-18] MEDS: LEVOTHYROXINE 50 MCG TAB PO SCH (04:54)
[2022-01-18] MEDS: HEPARIN SODIUM,PORCINE/PF 5,000 UNIT/0.5 ML SYRINGE SQ SCH ×2 (09:32→21:40)
[2022-01-18] MEDS: LOSARTAN 50 MG TAB PO SCH (09:32)
[2022-01-18] MEDS: METOPROLOL TARTRATE 25 MG TAB PO SCH ×2 (09:32→21:40)
[2022-01-18] MEDS: PANTOPRAZOLE 40 MG TABLET PO SCH (09:32)
[2022-01-18] MEDS: hydroCHLOROthiazide 12.5 MG CAP PO SCH (09:33)
[2022-01-18] MEDS: ESCITALOPRAM 10 MG TAB PO SCH (10:01)
--- NOTE | 2022-01-18 10:26 | P.PN ---
Subjective Progress Note Date: 01/18/22 Principal diagnosis: Right hip IT fracture Patient was seen at bedside this morning lying in bed semirecumbent position. Patient says she is having spasms in her leg at this time. Patient says physical therapy has not been up yet this morning. Patient says she did work with physical therapy yesterday morning and was able to stand at bedside. Patient says she does live at home alone. Patient says before this injury she did ambulate independently. Patient says her daughter and son-in-law are coming up from [place] to help with her at home. Patient does want to go home. Patient is understanding that if she is not able progress with therapy she is okay with the idea of going to rehab. Patient denies chest pain, fever, shortness breath, nausea, vomiting, change in vision, loss of bowel/bladder control. Objective - Vital Signs Vital signs: Vital Signs Temp 98.7 F 01/18/22 05:00 Pulse 79 01/18/22 05:00 Resp 16 01/18/22 05:00 BP 135/76 01/18/22 05:00 Pulse Ox 96 01/18/22 07:32 FiO2 Intake & Output 01/17/22 01/18/22 01/18/22 18:59 06:59 18:59 Intake Total 200 Output Total 300 150 Balance -300 50 Intake: Oral 200 Output: Urine 300 150 Other: Voiding Method Indwelling Catheter Bedpan - Exam There is some spotting present over surgical dressings on right hip. Negative for any significant drainage. There is ecchymosis present along the right lateral hip as well as right ankle. Sensation is equal, symmetric, bilaterally intact throughout the upper and lower extremities. Patient does have tenderness to patient over the right lateral hip and right lateral malleolus. Nontender to palpation throughout rest exam. Patient does have some limted ROM in RUE in shoulder abduction and forward elev due to pain. Full ROM in LUE in shoulder in abduction and forward elevation in left elbow flexion extension in left wrist flexion/extension. Range of motion right elbow flexion/extension and wrist flexion/extension. Full range of motion left lower extremity and hip flexion/extension and knee flexion/extension and left ankle dorsi and plantarflexion. Limited range of motion in right hip flexion/extension due to pain. Range of motion right knee in flexion and extension due to pain. Full range of motion right ankle in dorsi and plantarflexion. Left upper extremity 4+/5 in all major motor groups. LLE 4+/5 in all majpr motor groups. Right lower extremity 3/5 in resisted knee flexion and extension and right hip flexion/extension. 4-/5 in resisted right ankle dorsi/plantar flexion. Neurovascular status intact bilaterally. Cap refill under 3 seconds in digits of UE. radial pulses intact, 2+ bilaterally. Negative Homans bilaterally. - Labs CBC & Chem 7: 01/17/22 05:30 01/17/22 05:30 Assessment and Plan Assessment: 1. Right hip IT fracture -Postoperative day #2 status post right hip IM nail Plan: 1. Right hip IT fracture - right hip IM nail surgery performed sen, 01/16/2022. Patient still bedside this morning. Plan is to work travel physical therapist apy later this morning. Plan is to determine if patient is stable enough to go home with home care versus rehab. Patient does want to go home. 2. Appreciate medical management 3. Pain management - [place]; tramadol; Flexeril 4. DVT prophylaxis - Heparin 5. GI prophylaxis - senna; Colace; milk of mag 6. PT/OT - weightbearing as tolerated with walker 7. Encourage incentive spirometer use 8. Discharge planning - home with health services versus rehab tmrw vs Time with Patient: Less than 30
[2022-01-18] MEDS: DOCUSATE 100 MG CAP PO SCH ×2 (10:40→21:41)
[2022-01-18 11:50] LABS: Basophils % (A) 0 %; Eosinophils # (A) 0.1 k/uL (0-0.7); Eosinophils % (A) 1 %; HCT 21.5 % (34.0-46.0); Lymphocytes # (A) 0.7 k/uL (1.0-4.8); Lymphocytes % (A) 7 %; MCH 32.4 pg (25.0-35.0); MCHC 35.3 g/dL (31.0-37.0); MCV 91.8 fL (80.0-100.0); Mean Platelet Volume 8.4; Monocytes # (A) 0.4 k/uL (0-1.0); Monocytes % (A) 4 %; Neutrophils # (A) 8.5 k/uL (1.3-7.7); Neutrophils % (A) 87 %; Platelet Count 179 k/uL (150-450); RBC 2.34 m/uL (3.80-5.40); RDW 13.6 % (11.5-15.5); WBC 9.8 k/uL (3.8-10.6)
[2022-01-18 11:52] LABS: HGB 7.6 gm/dL (11.4-16.0)
[2022-01-18] MEDS: CYCLOBENZAPRINE 5 MG TAB PO PRN (15:46)
--- NOTE | 2022-01-18 16:40 | P.PN ---
Subjective Progress Note Date: 01/18/22 This is an 86-year-old female patient who presents to the ER after sustaining a fall to her right hip. Patient reports she did not trip or fall or become dizzy she just lost her balance and fell directly on her right hip. X-ray completed showing commuted intertrochanter fracture of the right femur without evidence for displacement. CT of pelvis completed showing right hip fracture mild right hip intramuscular and soft tissue edema. Chest x-ray completed showing no acute cardiopulmonary process. Marking on her T of head and cervical spine completed showing no acute intracranial process nonspecific white matter changes likely secondary to chronic small vessel ischemic disease. No evidence of cervical spine fracture mild multilevel degenerative disc disease. Patient is currently resting comfortably in bed. Patient is complaining of intermittent pain to her right hip patient has been admitted to surgical services planned surgical intervention. Patient denies any history of [place], stroke or irregular heart rhythm. Patient denies history of PE or DVT. Will order EKG. Patient denies chest pain or shortness of breath. Patient denies nausea vomiting or diarrhea. Patient denies any urinary burning or frequency. Temp 98.2, heart rate 62, respiratory rate 16, blood pressure 135/60 and pulse ox 98% on room air. Creatinine 1.13 but 16. On 01/17/2022 patient was seen and examined on the medical floor she is alert and oriented 3 in no distress there is no fever or chills no headache or dizziness no chest pain no shortness of breath no cough no nausea or vomiting no abdominal pain no diarrhea and no urinary symptoms. Vital exam reveals a temperature of 99.6 pulse 64 respiration 18 and blood pressure 94/60 pulse ox 91% on room air. Laboratory data reveals a white blood count of 8.9 hemoglobin 7.5 platelet count 176 sodium 134 potassium 4.0 chloride 102 CO2 22.8 BUN 13 and creatinine 1.1 patient underwent right hip intertrochanteric nail fixation with manipulation yesterday. For DVT prophylaxis she is maintained on subcu heparin On 01/18/2022 patient was seen and examined on the medical floor she is alert and oriented 3 in no apparent distress, is at the bedside, she is still complaining of hip pain and difficulty with movement she is still and able to s tand or walk, she was complaining of constipation otherwise she denies any complaints there is no fever or chills no headache or dizziness no chest pain no shortness of breath no cough no nausea or vomiting no abdominal pain no diarrhea and no urinary symptoms. White blood count today is 9.8 hemoglobin 7.6 platelet count 179 Objective - Vital Signs Vital signs: Vital Signs Temp 98.7 F 01/18/22 05:00 Pulse 79 01/18/22 05:00 Resp 16 01/18/22 05:00 BP 135/76 01/18/22 05:00 Pulse Ox 96 01/18/22 07:32 FiO2 Intake & Output 01/17/22 01/18/22 01/18/22 18:59 06:59 18:59 Intake Total 200 Output Total 300 150 Balance -300 50 Intake: Oral 200 Output: Urine 300 150 Other: Voiding Method Indwelling Catheter Bedpan - Exam In general patient is alert and oriented x 3 in no distress HEENT head normocephalic and atraumatic Neck is supple no JVD no goiter no lymphadenopathy no carotid bruit Chest examination is clear to auscultation no crackles no wheezing Cardiac exam reveals regular heart sounds S1 and S2 no gallops no murmurs Abdomen is soft nontender no organomegaly with normal bowel sounds Extremity exam reveals no edema no cyanosis or clubbing Neurological examination reveals no gross focal deficits - Labs CBC & Chem 7: 01/18/22 11:01 01/17/22 05:30 Labs: Abnormal Lab Results - Last 24 Hours (Table) 01/17/22 01/17/22 Range/Units 05:30 05:30 RBC 2.38 L (4.10-5.20) X 10*6/uL Hgb 7.5 L (12.0-15.0) g/dL Hct 23.2 L (37.2-46.3) % MCV 97.5 H (80.0-97.0) fL Lymphocytes # 0.75 L (0.90-5.00) X 10*3/uL Monocytes # 1.02 H (0.20-1.00) X 10*3/uL Eosinophils # 0 L (0.04-0.35) X 10*3/uL Sodium 134 L (135-145) mmol/L Anion Gap 9.20 L (10.00-18.00) mmol/L Est GFR (CKD-EPI)AfAm 52.3 L (60.0-200.0) Est GFR (CKD-EPI)NonAf 45.1 L (60.0-200.0) BUN/Creatinine Ratio 11.82 L (12.00-20.00) Ratio Glucose 111 H (70-110) mg/dL Calcium 8.4 L (8.7-10.3) mg/dL Total Bilirubin 0.20 L (0.30-1.20) mg/dL Total Protein 5.1 L (6.2-8.2) g/dL Albumin 3.4 L (3.8-4.9) g/dL Assessment and Plan Assessment: 1. Right comminuted intertrochanter fracture. 2. History of fall without loss of consciousness 3. History of GERD 4. Essential hypertension 5. Hyperlipidemia Thank you for this consultation we will continue to follow patient closely throughout stay EKG ordered Repeat labs ordered
[2022-01-18] MEDS: HYDROcodone/APAP 7.5-325MG 1 EACH TAB PO PRN (17:56)
[2022-01-18] MEDS: FERROUS SULFATE 325 MG TAB PO SCH (17:56)
[2022-01-18] MEDS: bisacodyL 5 MG TABLET.DR PO SCH (21:40)
[2022-01-18] MEDS: SENNOSIDES-DOCUSATE SODIUM 1 EACH TAB PO SCH (21:41)
[2022-01-18] MEDS: TEMAZEPAM 15 MG CAP PO PRN (21:57)
[2022-01-18] MEDS: PRAVASTATIN SODIUM 40 MG TAB PO SCH (22:28)
[2022-01-19] MEDS: LEVOTHYROXINE 50 MCG TAB PO SCH (06:39)
[2022-01-19] MEDS: SODIUM CHLORIDE 0.9% 1,000 ML IV SCH ×2 (08:00→17:27)
--- NOTE | 2022-01-19 08:36 | P.PN ---
Subjective Progress Note Date: 01/19/22 Principal diagnosis: Right hip IT fracture Patient seen and examined at bedside. Patient was resting comfortable in bed. Patient states her pain is managed on current regimen. She states that she has been up with physical therapy utilizing walker. Patient states she's had some difficulty due to generalized weakness and a "heavy feeling" in right lower extremity. Explained to patient this is due to the procedure and it will just take time. Patient verbalizes understanding. Dressing will be changed prior to discharge to [facility]. Patiently currently denies any fevers/chills, nausea/vomiting, or chest pain. Objective - Vital Signs Vital signs: Vital Signs Temp 99.3 F 01/19/22 04:53 Pulse 89 01/19/22 04:53 Resp 16 01/19/22 04:53 BP 167/67 01/19/22 04:53 Pulse Ox 94 L 01/19/22 04:53 FiO2 Intake & Output 01/18/22 01/19/22 01/19/22 18:59 06:59 18:59 Output Total 600 Balance -600 Output: Urine 600 Other: Voiding Method External Catheter External Catheter # Bowel Movements 1 - Exam Physical Examination General: The patient is awake and alert, in no acute distress Skin: Skin is warm and dry with no obvious rashes or lesions. Hairy patches absent, no dorsal skin dimples, no cafe au lait spots. Surgical incision to right hip, some old spotting noted on dressing. Eye: Pupils are equal, round and reactive to light, extra-ocular movements are intact; there is normal conjunctiva bilaterally. Neck: The neck is supple, there is no tenderness and ROM intact. Cardiovascular: There is a regular rate and rhythm. No murmur, rub or gallop is appreciated. Respiratory: Lungs are clear to auscultation, respirations are non-labored, breath sounds are equal. Gastrointestinal: Soft, non-distended, non-tender abdomen. Musculoskeletal: ROM limited secondary to pain and stiffness from surgical procedure. Muscle strength in all major muscle groups of bilateral upper extremities 5/5, left lower extremity 4/5, 4-/5 Neurological: CN 2-12 intact. There are no obvious motor or sensory deficits. Movement and coordination equal and intact. Sensory exam to light touch intact C5-T1 and intact from L2-S1. Reflexes 2/4 in bilateral upper and lower e xtremities. Negative Hoffmans, babinski, and clonus signs. Psychiatric: Cooperative, appropriate mood & affect, normal judgment. - Labs CBC & Chem 7: 01/18/22 11:01 01/17/22 05:30 Labs: Abnormal Lab Results - Last 24 Hours (Table) 01/18/22 Range/Units 11:01 RBC 2.34 L (3.80-5.40) m/uL Hgb 7.6 L D (11.4-16.0) gm/dL Hct 21.5 L (34.0-46.0) % Neutrophils # 8.5 H (1.3-7.7) k/uL Lymphocytes # 0.7 L (1.0-4.8) k/uL Assessment and Plan Assessment: 1. Right hip IT fracture -Post Op Day: 2 Right hip IM nail Plan: -Appreciate merchandising consultant and team management. -Activity: Ambulate QID, OOB all meals, up and about. Use walker or cane if needed for stability. -Daily PT/OT, increase ambulation strength and balance. -Pain control: Adequate at this time -Meds: reviewed -GI ppx: senna, Miralax -DVT PPX: Heparin -Hygiene: Shower today. Maintain dressing clean and dry. -Encourage IS 10x/hr -Dispo: Anticipate discharge to [facility] when bed available *I reviewed and discussed this case with my attending Dr. Pickens, whom has reviewed this chart and films and is in agreement with assessment and plan of care as outlined above. I have personally seen and examined the patient, performed the documentation and the assessment and plan as written. Number of minutes spent on the visit: 15m.
[2022-01-19] MEDS: METOPROLOL TARTRATE 25 MG TAB PO SCH ×2 (09:12→21:54)
[2022-01-19] MEDS: DOCUSATE 100 MG CAP PO SCH ×2 (09:12→21:53)
[2022-01-19] MEDS: PANTOPRAZOLE 40 MG TABLET PO SCH (09:12)
[2022-01-19] MEDS: FERROUS SULFATE 325 MG TAB PO SCH ×2 (09:12→17:35)
[2022-01-19] MEDS: LOSARTAN 50 MG TAB PO SCH (09:12)
[2022-01-19] MEDS: ESCITALOPRAM 10 MG TAB PO SCH (09:12)
[2022-01-19] MEDS: hydroCHLOROthiazide 12.5 MG CAP PO SCH (09:13)
[2022-01-19] MEDS: HEPARIN SODIUM,PORCINE/PF 5,000 UNIT/0.5 ML SYRINGE SQ SCH ×2 (09:13→21:53)
[2022-01-19 09:27] LABS: African American GFR (CKD) 64.8 (60.0-200.0); Albumin 3.1 g/dL (3.8-4.9); Albumin/Globulin Ratio 1.81 (1.60-3.17); Anion Gap 8.3 mmol/L (10.00-18.00); BUN/Creat Ratio 11.18 Ratio (12.00-20.00); Blood Urea Nitrogen 10.3 mg/dL (9.0-27.0); Carbon Dioxide 24.1 mmol/L (20.0-27.5); Globulin 1.7 g/dL (1.6-3.3); Non-African American GFR(CKD) 55.9 (60.0-200.0); Potassium 3.3 mmol/L (3.5-5.5); Total Bilirubin 0.4 mg/dL (0.30-1.20); Total Protein 4.8 g/dL (6.2-8.2)
--- NOTE | 2022-01-19 09:52 | P.DS ---
Providers Date of admission: 01/15/22 21:03 Expected date of discharge: 01/19/22 Attending physician: Manoj Pickens DO Consults: 01/15/22 20:59 Consult Physician Routine Consulting Provider: Arleen Hermosillo Consult Reason/Comments: medical management Do you want consulting provider notified?: Already Contacted Primary care physician: Arleen Hermosillo [facility] Course: Date of admission: 01/15/2022 Date of discharge: 01/19/2022 Admission diagnosis: Right hip IT fracture Discharge diagnosis: Same Attending physician: Dr. Pickens Surgical procedures: Right hip IM nail Brief history: Patient is a a 86-year-old female with a history of right hip IT fracture status post fall. At this point patient has failed conservative treatment measures and has opted to proceed with a elective right hip IM nail. Hospital course: Details of patient's surgery can be found in operative report. Patient tolerated the procedure well and was subsequently transported to orthopedic floor. Patient's orthopeidc and medical care was provided daily. Patient had daily laboratory tests performed for evaluation of overall blood counts. Patient had daily physical therapy to include strengthening range of motion as well as education with walker ambulation. Patient was treated with heparin for their postoperative DVT prophylaxis during their inpatient stay. Patient was noted to have a relatively uneventful postoperative course. Patient reported satisfactory pain control with oral pain medications by postoperative day 3. Patient showed satisfactory progress with physical therapy. Patient moved steadily through the program and had no difficulty meeting the goals by postoperative day 3. Given patient's otherwise satisfactory course and having met physical therapy goals, plan is to discharge patient to rehab on postoperative day 3. Discharge condition/disposition: Patient will be discharged to rehab in stable condition. Discharge medications: Instructions are given on resumption of patient's normal daily medications per primary care recommendation, in addition patient will be prescribed [place]; ferrous sulfate; Lovenox; Duricef; senna; Flexeril. Discharge instructions: 1. Wound care and infection precautions, keep incision dry and covered while showering, no lotions, creams, moisturizers. No soaking, tubs, pools, hottubs. Do not scrub over the incision. 2. Weight-bear as tolerated with walker / cane until follow-up. 3. Ice and elevate when necessary. Do not exceed 20 minutes per hour with ice pack. 4. Utilize optifoam dressing over incision. dressing may be removed on Monday01/21/2022. may shower over incision once dressing is removed. 5. Nursing care. 6. Physical therapy. 7. Pain meds and anticoagulants per prescription. 8. Pain medication has potential to cause constipation. Increase oral fluid and fiber intake. Contact primary care provider if you have not had a bowel movement within 48 hours after discharge 9. No anti-inflammatory medication until discussed at first post operative visit, this including Motrin, Aleve, Mobic, Diclofenac. 10. Follow up in office at [address] Manoj Pickens. 11. Follow up with your primary care doctor 7-10 days after discharge. 12. Contact [facility] with any questions, . Assessment: Right hip IT fracture Procedures: Right hip IM nail Patient Condition at Discharge: Good Plan - Discharge Summary Discharge Rx Participant: No New Discharge Prescriptions: New HYDROcodone/APAP 7.5-325MG [[place] 7.5] 1 each PO Q6HR PRN #28 tab PRN Reason: Pain cefaDROXiL [Duricef] 500 mg PO Q12HR 5 Days #10 cap Cyclobenzaprine [Flexeril] 5 mg PO TID #21 tablet Sennosides/Docusate Sodium [Senna Plus 8.6-50 mg Softgel] 1 each PO DAILY #20 capsule Enoxaparin [Lovenox] 40 mg SQ DAILY #28 each Changed Ferrous Sulfate [Feosol] 325 mg PO BID 7 Days #14 tab No Action Cholecalciferol [Vitamin D3 (25 Mcg = 1000 Iu)] 25 mcg PO DAILY Temazepam [Restoril] 15 mg PO HS PRN PRN Reason: Insomnia Herbilax 2 cap PO HS Metoprolol Tartrate [Lopressor] 25 mg PO BID Losartan [Cozaar] 50 mg PO DAILY Estradiol Cream [Estrace Cream 0.01%] 1 gm VAGINAL TUFR Alendronate Sodium [Fosamax] 70 mg PO SA Ascorbic Acid [Vitamin C] 1,000 mg PO DAILY Multivitamins, Thera [Multivitamin (formulary)] 1 tab PO DAILY bisacodyL [Dulcolax] 10 mg PO HS hydroCHLOROthiazide [Hydrodiuril] 12.5 mg PO DAILY Pravastatin Sodium [Pravachol] 40 mg PO HS Omeprazole 40 mg PO DAILY Levothyroxine Sodium [Synthroid] 50 mcg PO DAILY Escitalopram [Lexapro] 10 mg PO DAILY Cyanocobalamin (Vitamin B-12) [Vitamin B-12] 1,000 mcg PO DAILY Discharge Medication List Alendronate Sodium [Fosamax] 70 mg PO SA 01/15/22 [History] Ascorbic Acid [Vitamin C] 1,000 mg PO DAILY 01/15/22 [History] Cholecalciferol [Vitamin D3 (25 Mcg = 1000 Iu)] 25 mcg PO DAILY 01/15/22 [History] Cyanocobalamin (Vitamin B-12) [Vitamin B-12] 1,000 mcg PO DAILY 01/15/22 [History] Escitalopram [Lexapro] 10 mg PO DAILY 01/15/22 [History] Estradiol Cream [Estrace Cream 0.01%] 1 gm VAGINAL TUFR 01/15/22 [History] Herbilax 2 cap PO HS 01/15/22 [History] Levothyroxine Sodium [Synthroid] 50 mcg PO DAILY 01/15/22 [History] Losartan [Cozaar] 50 mg PO DAILY 01/15/22 [History] Metoprolol Tartrate [Lopressor] 25 mg PO BID 01/15/22 [History] Multivitamins, Thera [Multivitamin (formulary)] 1 tab PO DAILY 01/15/22 [History] Omeprazole 40 mg PO DAILY 01/15/22 [History] Pravastatin Sodium [Pravachol] 40 mg PO HS 01/15/22 [History] Temazepam [Restoril] 15 mg PO HS PRN 01/15/22 [History] bisacodyL [Dulcolax] 10 mg PO HS 01/15/22 [History] hydroCHLOROthiazide [Hydrodiuril] 12.5 mg PO DAILY 01/15/22 [History] Cyclobenzaprine [Flexeril] 5 mg PO TID #21 tablet 01/19/22 [Rx] Enoxaparin [Lovenox] 40 mg SQ DAILY #28 each 01/19/22 [Rx] Ferrous Sulfate [Feosol] 325 mg PO BID 7 Days #14 tab 01/19/22 [Rx] HYDROcodone/APAP 7.5-325MG [[place] 7.5] 1 each PO Q6HR PRN #28 tab 01/19/22 [Rx] Sennosides/Docusate Sodium [Senna Plus 8.6-50 mg Softgel] 1 each PO DAILY #20 capsule 01/19/22 [Rx] cefaDROXiL [Duricef] 500 mg PO Q12HR 5 Days #10 cap 01/19/22 [Rx] Follow up Appointment(s)/Referral(s): Manoj Pickens DO [Doctor of Osteopathic Medicine] - 2 Weeks Arleen Hermosillo MD [Primary Care Provider] - 1-2 days Patient Instructions/Handouts: Pain Management After Surgery (DC), Intramedullary Nailing (DC) Activity/Diet/Wound Care/Special Instructions: Discharge instructions: 1. Wound care and infection precautions, keep incision dry and covered while showering, no lotions, creams, moisturizers. No soaking, tubs, pools, hottubs. Do not scrub over the incision. 2. Weight-bear as tolerated with walker / cane until follow-up. 3. Ice and elevate when necessary. Do not exceed 20 minutes per hour with ice pack. 4. Utilize optifoam dressing over incision. dressing may be removed on Monday01/21/2022. may shower over incision once dressing is removed. 5. Nursing care. 6. Physical therapy. 7. Pain meds and anticoagulants per prescription. 8. Pain medication has potential to cause constipation. Increase oral fluid and fiber intake. Contact primary care provider if you have not had a bowel movement within 48 hours after discharge 9. No anti-inflammatory medication until discussed at first post operative visit, this including Motrin, Aleve, Mobic, Diclofenac. 10. Follow up in office at [address] Manoj Pickens. 11. Follow up with your primary care doctor 7-10 days after discharge. 12. Contact [facility] with any questions, . Discharge Disposition: TRANSFER TO SNF/ECF
[2022-01-19 12:02] LABS: Basophils # (A) 0.02 X 10*3/uL (0.00-0.10); Basophils % (A) 0.3 %; Eosinophils # (A) 0.11 X 10*3/uL (0.04-0.35); Eosinophils % (A) 1.4 %; Immature Grans, Automated 0.8 %; Lymphocytes # (A) 0.75 X 10*3/uL (0.90-5.00); Lymphocytes % (A) 9.8 %; Monocytes % (A) 10.4 %; NRBC Per 100 WBC 0 /100 WBCS (0.0-0.0); Neutrophils # (A) 5.94 X 10*3/uL (1.80-7.70); Neutrophils % (A) 77.3 %
[2022-01-19 12:08] LABS: HCT 18.4 % (37.2-46.3); HGB 6.4 g/dL (12.0-15.0); MCHC 34.8 g/dL (32.0-37.0); Mean Platelet Volume 9.6 fL (9.5-12.2); Platelet Count 162 X 10*3/uL (140-440); RDW 13.4 % (11.5-14.5); WBC 7.68 X 10*3/uL (4.50-10.00)
--- NOTE | 2022-01-19 12:32 | P.PN ---
Subjective Progress Note Date: 01/19/22 This is an 86-year-old female patient who presents to the ER after sustaining a fall to her right hip. Patient reports she did not trip or fall or become dizzy she just lost her balance and fell directly on her right hip. X-ray completed showing commuted intertrochanter fracture of the right femur without evidence for displacement. CT of pelvis completed showing right hip fracture mild right hip intramuscular and soft tissue edema. Chest x-ray completed showing no acute cardiopulmonary process. Marking on her T of head and cervical spine completed showing no acute intracranial process nonspecific white matter changes likely secondary to chronic small vessel ischemic disease. No evidence of cervical spine fracture mild multilevel degenerative disc disease. Patient is currently resting comfortably in bed. Patient is complaining of intermittent pain to her right hip patient has been admitted to surgical services planned surgical intervention. Patient denies any history of [place], stroke or irregular heart rhythm. Patient denies history of PE or DVT. Will order EKG. Patient denies chest pain or shortness of breath. Patient denies nausea vomiting or diarrhea. Patient denies any urinary burning or frequency. Temp 98.2, heart rate 62, respiratory rate 16, blood pressure 135/60 and pulse ox 98% on room air. Creatinine 1.13 but 16. On 01/17/2022 patient was seen and examined on the medical floor she is alert and oriented 3 in no distress there is no fever or chills no headache or dizziness no chest pain no shortness of breath no cough no nausea or vomiting no abdominal pain no diarrhea and no urinary symptoms. Vital exam reveals a temperature of 99.6 pulse 64 respiration 18 and blood pressure 94/60 pulse ox 91% on room air. Laboratory data reveals a white blood count of 8.9 hemoglobin 7.5 platelet count 176 sodium 134 potassium 4.0 chloride 102 CO2 22.8 BUN 13 and creatinine 1.1 patient underwent right hip intertrochanteric nail fixation with manipulation yesterday. For DVT prophylaxis she is maintained on subcu heparin On 01/18/2022 patient was seen and examined on the medical floor she is alert and oriented 3 in no apparent distress, is at the bedside, she is still complaining of hip pain and difficulty with movement she is still and able to s tand or walk, she was complaining of constipation otherwise she denies any complaints there is no fever or chills no headache or dizziness no chest pain no shortness of breath no cough no nausea or vomiting no abdominal pain no diarrhea and no urinary symptoms. White blood count today is 9.8 hemoglobin 7.6 platelet count 179 01/19/2022 patient is alert and oriented 3. is at bedside. Hemoglobin low 6.4 today requiring blood transfusion. Discharge planning is in place patient will likely be DC'd to ECF facility [facility]. At this time patient denies chest pain or shortness of breath. Patient denies any urinary burning or frequency patient denies any chest pain or shortness of breath. Denies any nausea vomiting or diarrhea Objective - Vital Signs Vital signs: Vital Signs Temp 99.4 F 01/19/22 11:05 Pulse 76 01/19/22 11:05 Resp 17 01/19/22 11:05 BP 113/70 01/19/22 11:05 Pulse Ox 95 01/19/22 12:15 FiO2 Intake & Output 01/18/22 01/19/22 01/19/22 18:59 06:59 18:59 Output Total 600 Balance -600 Output: Urine 600 Other: Voiding Method External Catheter External Catheter External Catheter # Voids 2 # Bowel Movements 1 1 - Exam In general patient is alert and oriented x 3 in no distress HEENT head normocephalic and atraumatic Neck is supple no JVD no goiter no lymphadenopathy no carotid bruit Chest examination is clear to auscultation no crackles no wheezing Cardiac exam reveals regular heart sounds S1 and S2 no gallops no murmurs Abdomen is soft nontender no organomegaly with normal bowel sounds Extremity exam reveals no edema no cyanosis or clubbing Neurological examination reveals no gross focal deficits - Labs CBC & Chem 7: 01/19/22 06:24 01/19/22 06:24 Labs: Abnormal Lab Results - Last 24 Hours (Table) 01/19/22 01/19/22 Range/Units 06:24 06:24 RBC 2.00 L (4.10-5.20) X 10*6/uL Hgb 6.4 L* (12.0-15.0) g/dL Hct 18.4 L* (37.2-46.3) % Immature Gran # 0.06 H (0.00-0.04) X 10*3/uL Lymphocytes # 0.75 L (0.90-5.00) X 10*3/uL Potassium 3.3 L (3.5-5.5) mmol/L Anion Gap 8.30 L (10.00-18.00) mmol/L Est GFR (CKD-EPI)NonAf 55.9 L (60.0-200.0) BUN/Creatinine Ratio 11.18 L (12.00-20.00) Ratio Calcium 8.0 L (8.7-10.3) mg/dL Total Protein 4.8 L (6.2-8.2) g/dL Albumin 3.1 L (3.8-4.9) g/dL Assessment and Plan Assessment: 1. Right comminuted intertrochanter fracture. 2. History of fall without loss of consciousness 3. History of GERD 4. Essential hypertension 5. Hyperlipidemia 6. Anemia likely secondary to surgery expected. 1 unit of PRBCs have been ordered per orthopedic services Thank you for this consultation we will continue to follow patient closely throughout stay Repeat labs ordered
[2022-01-19] MEDS ORDERED: POTASSIUM CHLORIDE ER 10 MEQ TAB.ER.PRT PO STA (15:00)
[2022-01-19] MEDS: ACETAMINOPHEN TAB 325 MG TAB PO PRN (18:27)
[2022-01-19] MEDS: bisacodyL 5 MG TABLET.DR PO SCH (21:53)
[2022-01-19] MEDS: TEMAZEPAM 15 MG CAP PO PRN (21:54)
[2022-01-19] MEDS: PRAVASTATIN SODIUM 40 MG TAB PO SCH (21:54)
[2022-01-19] MEDS: SENNOSIDES-DOCUSATE SODIUM 1 EACH TAB PO SCH (21:54)
[2022-01-20] MEDS: SODIUM CHLORIDE 0.9% 1,000 ML IV SCH ×2 (03:33→12:55)
[2022-01-20] MEDS: LEVOTHYROXINE 50 MCG TAB PO SCH (06:27)
[2022-01-20] MEDS: FERROUS SULFATE 325 MG TAB PO SCH (08:41)
[2022-01-20] MEDS: LOSARTAN 50 MG TAB PO SCH (08:41)
[2022-01-20] MEDS: METOPROLOL TARTRATE 25 MG TAB PO SCH (08:41)
[2022-01-20] MEDS: ESCITALOPRAM 10 MG TAB PO SCH (08:41)
[2022-01-20] MEDS: PANTOPRAZOLE 40 MG TABLET PO SCH (08:41)
[2022-01-20] MEDS: DOCUSATE 100 MG CAP PO SCH (08:41)
[2022-01-20] MEDS: ACETAMINOPHEN TAB 325 MG TAB PO PRN (08:41)
[2022-01-20] MEDS: hydroCHLOROthiazide 12.5 MG CAP PO SCH (08:41)
[2022-01-20] MEDS: HEPARIN SODIUM,PORCINE/PF 5,000 UNIT/0.5 ML SYRINGE SQ SCH (08:41)
--- NOTE | 2022-01-20 08:54 | P.PN ---
Subjective Progress Note Date: 01/20/22 Principal diagnosis: Right hip IT fracture Patient seen and examined at bedside. Patient was resting comfortable in bed. Patient states her pain is managed on current regimen. She states that she has been up with physical therapy utilizing walker. Surgical dressing is CDI. Hammad archer has had post-op anemia and 1 unit of PRBC transfused yesterday, awaiting today labs. Patiently currently denies any fevers/chills, nausea/vomiting, or chest pain. Objective - Vital Signs Vital signs: Vital Signs Temp 99.2 F 01/20/22 04:29 Pulse 81 01/20/22 04:29 Resp 12 01/20/22 04:29 BP 123/63 01/20/22 04:29 Pulse Ox 93 L 01/20/22 04:29 FiO2 Intake & Output 01/19/22 01/20/22 01/20/22 18:59 06:59 18:59 Intake Total 0 310 Output Total 700 275 Balance -700 35 Intake: Blood Product 0 310 Rc Irr As1 Unit 0 310 [id number] Output: Urine 700 275 Other: Voiding Method External Catheter External Catheter # Voids 2 # Bowel Movements 1 1 - Exam Physical Examination General: The patient is awake and alert, in no acute distress Skin: Skin is warm and dry with no obvious rashes or lesions. Hairy patches absent, no dorsal skin dimples, no cafe au lait spots. Surgical incision to right hip, dressing CDI. Eye: Pupils are equal, round and reactive to light, extra-ocular movements are intact; there is normal conjunctiva bilaterally. Neck: The neck is supple, there is no tenderness and ROM intact. Cardiovascular: There is a regular rate and rhythm. No murmur, rub or gallop is appreciated. Respiratory: Lungs are clear to auscultation, respirations are non-labored, breath sounds are equal. Gastrointestinal: Soft, non-distended, non-tender abdomen. Musculoskeletal: ROM limited secondary to pain and stiffness from surgical p rocedure. Muscle strength in all major muscle groups of bilateral upper extremities 5/5, left lower extremity 4/5, 4-/5 Neurological: CN 2-12 intact. There are no obvious motor or sensory deficits. Movement and coordination equal and intact. Sensory exam to light touch intact C5-T1 and intact from L2-S1. Reflexes 2/4 in bilateral upper and lower extremities. Negative Hoffmans, babinski, and clonus signs. Psychiatric: Cooperative, appropriate mood & affect, normal judgment. - Labs CBC & Chem 7: 01/19/22 06:24 01/19/22 06:24 Labs: Abnormal Lab Results - Last 24 Hours (Table) 01/19/22 01/19/22 01/19/22 Range/Units 06:24 06:24 13:20 RBC 2.00 L (4.10-5.20) X 10*6/uL Hgb 6.4 L* (12.0-15.0) g/dL Hct 18.4 L* (37.2-46.3) % Immature Gran # 0.06 H (0.00-0.04) X 10*3/uL Lymphocytes # 0.75 L (0.90-5.00) X 10*3/uL Potassium 3.3 L (3.5-5.5) mmol/L Anion Gap 8.30 L (10.00-18.00) mmol/L Est GFR (CKD-EPI)NonAf 55.9 L (60.0-200.0) BUN/Creatinine Ratio 11.18 L (12.00-20.00) Ratio Calcium 8.0 L (8.7-10.3) mg/dL Total Protein 4.8 L (6.2-8.2) g/dL Albumin 3.1 L (3.8-4.9) g/dL Crossmatch See Detail Assessment and Plan Assessment: 1. Right hip IT fracture 2. Post-Op anemia -Post Op Day 3: Right hip IM nail Plan: -Appreciate rn lactation consultant and team management. -Activity: Ambulate QID, OOB all meals, up and about. Use walker or cane if needed for stability. -Daily PT/OT, increase ambulation strength and balance. -Pain control: Adequate at this time -Meds: reviewed -GI ppx: senna, Miralax -DVT PPX: Heparin -Hygiene: Shower today. Maintain dressing clean and dry. -Encourage IS 10x/hr -Awating labs due to post-op anemia -Dispo: Anticipate discharge to [facility] when bed available *I reviewed and discussed this case with my attending Dr. Pickens, whom has reviewed this chart and films and is in agreement with assessment and plan of care as outlined above. I have personally seen and examined the patient, performed the documentation and the assessment and plan as written. Number of minutes spent on the visit: 15m.
[2022-01-20 09:16] LABS: Basophils % (A) 0 %; Eosinophils # (A) 0.1 k/uL (0-0.7); Eosinophils % (A) 1 %; HCT 23.9 % (34.0-46.0); HGB 8.3 gm/dL (11.4-16.0); Lymphocytes # (A) 0.7 k/uL (1.0-4.8); Lymphocytes % (A) 9 %; MCH 31.3 pg (25.0-35.0); MCHC 34.9 g/dL (31.0-37.0); MCV 89.7 fL (80.0-100.0); Mean Platelet Volume 8.3; Monocytes # (A) 0.5 k/uL (0-1.0); Monocytes % (A) 6 %; Neutrophils # (A) 6.3 k/uL (1.3-7.7); Neutrophils % (A) 80 %; Platelet Count 202 k/uL (150-450); RBC 2.66 m/uL (3.80-5.40); RDW 14.5 % (11.5-15.5); WBC 7.9 k/uL (3.8-10.6)
[2022-01-20 12:09] VITALS: BP 132/75; PULSE 63; RESP 17; TEMP 99
--- NOTE | 2022-01-20 12:19 | P.PN ---
Subjective Progress Note Date: 01/20/22 This is an 86-year-old female patient who presents to the ER after sustaining a fall to her right hip. Patient reports she did not trip or fall or become dizzy she just lost her balance and fell directly on her right hip. X-ray completed showing commuted intertrochanter fracture of the right femur without evidence for displacement. CT of pelvis completed showing right hip fracture mild right hip intramuscular and soft tissue edema. Chest x-ray completed showing no acute cardiopulmonary process. Marking on her T of head and cervical spine completed showing no acute intracranial process nonspecific white matter changes likely secondary to chronic small vessel ischemic disease. No evidence of cervical spine fracture mild multilevel degenerative disc disease. Patient is currently resting comfortably in bed. Patient is complaining of intermittent pain to her right hip patient has been admitted to surgical services planned surgical intervention. Patient denies any history of [place], stroke or irregular heart rhythm. Patient denies history of PE or DVT. Will order EKG. Patient denies chest pain or shortness of breath. Patient denies nausea vomiting or diarrhea. Patient denies any urinary burning or frequency. Temp 98.2, heart rate 62, respiratory rate 16, blood pressure 135/60 and pulse ox 98% on room air. Creatinine 1.13 but 16. On 01/17/2022 patient was seen and examined on the medical floor she is alert and oriented 3 in no distress there is no fever or chills no headache or dizziness no chest pain no shortness of breath no cough no nausea or vomiting no abdominal pain no diarrhea and no urinary symptoms. Vital exam reveals a temperature of 99.6 pulse 64 respiration 18 and blood pressure 94/60 pulse ox 91% on room air. Laboratory data reveals a white blood count of 8.9 hemoglobin 7.5 platelet count 176 sodium 134 potassium 4.0 chloride 102 CO2 22.8 BUN 13 and creatinine 1.1 patient underwent right hip intertrochanteric nail fixation with manipulation yesterday. For DVT prophylaxis she is maintained on subcu heparin On 01/18/2022 patient was seen and examined on the medical floor she is alert and oriented 3 in no apparent distress, is at the bedside, she is still complaining of hip pain and difficulty with movement she is still and able to s tand or walk, she was complaining of constipation otherwise she denies any complaints there is no fever or chills no headache or dizziness no chest pain no shortness of breath no cough no nausea or vomiting no abdominal pain no diarrhea and no urinary symptoms. White blood count today is 9.8 hemoglobin 7.6 platelet count 179 01/19/2022 patient is alert and oriented 3. is at bedside. Hemoglobin low 6.4 today requiring blood transfusion. Discharge planning is in place patient will likely be DC'd to ECF facility [facility]. At this time patient denies chest pain or shortness of breath. Patient denies any urinary burning or frequency patient denies any chest pain or shortness of breath. Denies any nausea vomiting or diarrhea. On 01/20/2022 patient was seen and examined on the medical floor she is alert and oriented 3 in no apparent distress she is sitting up in a chair she rec eived 1 unit of red blood cell transfusion yesterday and her hemoglobin is up to 8.3. Patient denies any complaints there is no fever or chills no headache or dizziness no chest pain no shortness of breath no cough no nausea or vomiting no abdominal pain no diarrhea and no urinary symptoms patient is cleared from medical standpoint to be transferred to [facility] for rehab. Objective - Vital Signs Vital signs: Vital Signs Temp 99.2 F 01/20/22 04:29 Pulse 81 01/20/22 04:29 Resp 12 01/20/22 04:29 BP 123/63 01/20/22 04:29 Pulse Ox 93 L 01/20/22 04:29 FiO2 Intake & Output 01/19/22 01/20/22 01/20/22 18:59 06:59 18:59 Intake Total 0 310 Output Total 700 275 Balance -700 35 Intake: Blood Product 0 310 Rc Irr As1 Unit 0 310 [id number] Output: Urine 700 275 Other: Voiding Method External Catheter External Catheter # Voids 2 # Bowel Movements 1 1 - Exam In general patient is alert and oriented x 3 in no distress HEENT head normocephalic and atraumatic Neck is supple no JVD no goiter no lymphadenopathy no carotid bruit Chest examination is clear to auscultation no crackles no wheezing Cardiac exam reveals regular heart sounds S1 and S2 no gallops no murmurs Abdomen is soft nontender no organomegaly with normal bowel sounds Extremity exam reveals no edema no cyanosis or clubbing Neurological examination reveals no gross focal deficits - Labs CBC & Chem 7: 01/20/22 08:20 01/19/22 06:24 Labs: Abnormal Lab Results - Last 24 Hours (Table) 01/19/22 01/19/22 01/20/22 Range/Units 06:24 13:20 08:20 RBC 2.00 L 2.66 L (4.10-5.20) X 10*6/uL Hgb 6.4 L* 8.3 L (12.0-15.0) g/dL Hct 18.4 L* 23.9 L (37.2-46.3) % Immature Gran # 0.06 H (0.00-0.04) X 10*3/uL Lymphocytes # 0.75 L 0.7 L (0.90-5.00) X 10*3/uL Crossmatch See Detail Assessment and Plan Assessment: 1. Right comminuted intertrochanter fracture. 2. History of fall without loss of consciousness 3. History of GERD 4. Essential hypertension 5. Hyperlipidemia 6. Anemia likely secondary to surgery expected. 1 unit of PRBCs have been ordered per orthopedic services Thank you for this consultation we will continue to follow patient closely throughout stay Repeat labs ordered
== END 2022-01-20 14:35 | DRG 481 ==
LOC: EC 19:47 → 4SSUR 21:03 → 5NMEDONC 01-16 12:02
PROVIDERS: ADMIT Orthopaedic Surgery; ATTEND Orthopaedic Surgery
PROC: 0QH606Z Insertion of Intramedullary Internal Fixation Device into Right Upper Femur, Open Approach (ICD-10-PCS; principal; 2022-01-16 09:10)
PROC: 30233N1 Transfusion of Nonautologous Red Blood Cells into Peripheral Vein, Percutaneous Approach (ICD-10-PCS; 2022-01-19)
DX: S72.144A Nondisplaced intertrochanteric fracture of right femur, initial encounter for closed fracture (principal); D62 Acute posthemorrhagic anemia; I10 Essential (primary) hypertension; W18.30XA Fall on same level, unspecified, initial encounter; M50.30 Other cervical disc degeneration, unspecified cervical region; K21.9 Gastro-esophageal reflux disease without esophagitis; E78.5 Hyperlipidemia, unspecified; Y92.009 Unspecified place in unspecified non-institutional (private) residence as the place of occurrence of the external cause; Z79.899 Other long term (current) drug therapy; Z79.83 Long term (current) use of bisphosphonates; Z79.890 Hormone replacement therapy; Z88.1 Allergy status to other antibiotic agents
CPT/HCPCS: 51702; 70450; 71045; 72125; 72192; 73502; 80048; 80053; 80306; 80320; 85025; 85610; 85730; 86850; 86900; 86901; 86920; 87635; 94760; 96361; 96372; 96374; 96376; 99285

== ENCOUNTER 2022-08-11 20:44 | Emergency (ER) | payer MEDICARE ==
[2022-08-11 20:55] VITALS: RESP 18; TEMP 99.7
[2022-08-11] MEDS ORDERED: KETOROLAC 15 MG/ML 1 ML VIAL IM STA (21:16)
--- NOTE | 2022-08-11 21:46 | XR ---
EXAMINATION TYPE: XR ankle complete LT DATE OF EXAM: 08/11/2022 9:37 PM INDICATION: Patient age:Female; 87 years old; Reason for study: left ankle pain s/p fall; PHH. COMPARISON: None TECHNIQUE: The left ankle is imaged in frontal, lateral and oblique projections. FINDINGS: There is no evidence of acute osseous pathology. 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 No evidence for dislocation. Kager's fat pad is intact. Mild soft tissue swelling around the ankle. N o radiopaque foreign bodies are identified. IMPRESSION: 1. No evidence of acute fracture. 2. Subcutaneous swelling around the ankle likely secondary to underlying soft tissue injury. 3. Mild ankle and midfoot osteoarthritis.
--- NOTE | 2022-08-11 21:52 | XR ---
EXAMINATION TYPE: XR Hip RT and AP Pelvis DATE OF EXAM: 08/11/2022 9:37 PM INDICATION: Patient age:Female; 87 years old; Reason for study: r hip pain s/p fall; PHH. COMPARISON: Right hip radiographs 01/16/2022 TECHNIQUE: The right hip was examined in the frontal and lateral projections and a AP pelvis. FINDINGS: Intramedullary monty and right femoral neck fixation hardware. No evidence for acute hardware convocation. 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 No eviden ce for acute fracture or dislocation. Degenerative changes of the hip joints bilaterally. Degenerativ e changes of the lumbar spine. Numerous surgical clips project over the lower abdomen and pelvis. IMPRESSION: 1. No evidence for acute fracture or dislocation. 2. Postsurgical changes to the right hip without evidence for acute hardware complication.
--- NOTE | 2022-08-11 21:55 | ED ---
General Adult HPI - General Chief complaint: Extremity Injury, Lower Stated complaint: Fall, L Foot Injury Time Seen by Provider: 08/11/22 21:00 Source: family Mode of arrival: wheelchair Limitations: no limitations - History of Present Illness Initial comments: 87-year-old female presents to the ED with a chief complaint of left ankle pain. Patient states that she tripped down one carpeted step and fell onto her right side onto the carpet. Now notes pain of her upper back, right hip, and left ankle. Denies chest pain or shortness of breath. No other complaints. - Related Data Home Medications Medication Instructions Recorded Confirmed Alendronate Sodium [Fosamax] 70 mg PO SA 01/15/22 01/15/22 Ascorbic Acid [Vitamin C] 1,000 mg PO DAILY 01/15/22 01/15/22 Cholecalciferol [Vitamin D3 (25 25 mcg PO DAILY 01/15/22 01/15/22 Mcg = 1000 Iu)] Cyanocobalamin (Vitamin B-12) 1,000 mcg PO DAILY 01/15/22 01/15/22 [Vitamin B-12] Escitalopram [Lexapro] 10 mg PO DAILY 01/15/22 01/15/22 Herbilax 2 cap PO HS 01/15/22 01/15/22 Levothyroxine Sodium [Synthroid] 50 mcg PO DAILY 01/15/22 01/15/22 Losartan [Cozaar] 50 mg PO DAILY 01/15/22 01/15/22 Metoprolol Tartrate [Lopressor] 25 mg PO BID 01/15/22 01/15/22 Multivitamins, Thera [Multivitamin 1 tab PO DAILY 01/15/22 01/15/22 (formulary)] Omeprazole 40 mg PO DAILY 01/15/22 01/15/22 Pravastatin Sodium [Pravachol] 40 mg PO HS 01/15/22 01/15/22 Temazepam [Restoril] 15 mg PO HS PRN 01/15/22 01/15/22 bisacodyL [Dulcolax] 10 mg PO HS 01/15/22 01/15/22 hydroCHLOROthiazide [Hydrodiuril] 12.5 mg PO DAILY 01/15/22 01/15/22 Previous Rx's Medication Instructions Recorded Cyclobenzaprine [Flexeril] 5 mg PO TID #21 tablet 01/19/22 Enoxaparin [Lovenox] 40 mg SQ DAILY #28 each 01/19/22 Ferrous Sulfate [Feosol] 325 mg PO BID 7 Days #14 tab 01/19/22 HYDROcodone/APAP 7.5-325MG [[place] 1 each PO Q6HR PRN #28 tab 01/19/22 7.5] Sennosides/Docusate Sodium [Senna 1 each PO DAILY #20 capsule 01/19/22 Plus 8.6-50 mg Softgel] cefaDROXiL [Duricef] 500 mg PO Q12HR 5 Days #10 cap 01/19/22 Acetaminophen Tab [Tylenol] 650 mg PO Q6HR PRN tab 01/20/22 Docusate [Colace] 100 mg PO BID cap 01/20/22 Allergies Allergy/AdvReac Type Severity Reaction Status Date / Time ciprofloxacin [From Cipro] Allergy Rash/Hives Verified 08/11/22 20:55 on entire body Review of Systems ROS Statement: Those systems with pertinent positive or pertinent negative responses have been documented in the HPI. ROS Other: All systems not noted in ROS Statement are negative. Past Medical History Past Medical History: GERD/Reflux, Hyperlipidemia, Hypertension History of Any Multi-Drug Resistant Organisms: None Reported Past Surgical History: Appendectomy, Breast Surgery, Section, Hysterectomy, Joint Replacement Past Anesthesia/Blood Transfusion Reactions: No Reported Reaction Past Psychological History: No Psychological Hx Reported Smoking Status: Never smoker Past Alcohol Use History: None Reported Past Drug Use History: None Reported General Exam Limitations: no limitations General appearance: alert, in no apparent distress Neck exam: Present: other (No Midline cervical spinal tenderness to palpation) Respiratory exam: Present: normal lung sounds bilaterally Cardiovascular Exam: Present: regular rate, normal rhythm GI/Abdominal exam: Present: soft Extremities exam: Present: other (Right lower extremity shows no shortening or rotation. No crepitus. Ankle has no obvious deformity. Soft tissue swelling over the lateral left ankle. Strength and sensation intact of bilateral upper and lower extremities.) Back exam: Present: other (Midline upper thoracic spinal tenderness to palpation. No midline lumbar spinal tenderness to palpation.) Neurological exam: Present: alert, oriented X3 Psychiatric exam: Present: agitated Skin exam: Present: warm, dry Course Vital Signs 08/11/22 20:52 Temperature 99.7 F H Pulse Rate 74 Respiratory 18 Rate Blood Pressure 161/75 O2 Sat by Pulse 97 Oximetry Medical Decision Making - Medical Decision Making Was pt. sent in by a medical professional or institution (RENETTA Workman, WRAPPING MACHINE OPERATOR, urgent care, hospital, or senior living...) When possible be specific @ -No Did you speak to anyone other than the patient for history (EMS, parent, family, police, friend...)? What history was obtained from this source @ -No Did you review nursing and triage notes (agree or disagree)? Why? @ -I reviewed and agree with nursing and triage notes Were old charts reviewed (outside hosp., previous admission, EMS record, old EKG, old radiological studies, urgent care reports/EKG's, senior living records)? Report findings @ -No old charts were reviewed Differential Diagnosis (chest pain, altered mental status, abdominal pain women, abdominal pain men, vaginal bleeding, weakness, fever, dyspnea, syncope, headache, dizziness, GI bleed, back pain, seizure, CVA, palpatations, mental health, musculoskeletal)? @ -Acute fracture, sprain, hematocrit hemorrhage. This not meant to be an all- inclusive list EKG interpreted by me (3pts min.). @ -None X-rays interpreted by me (1pt min.). @ -Chest x-ray, x-ray of the hip/pelvis, an x-ray of the left ankle showed no acute findings. CT interpreted by me (1pt min.). @ -None done U/S interpreted by me (1pt. min.). @ -None done What testing was considered but not performed or refused? (CT, X-rays, U/S, labs)? Why? @ -None What meds were considered but not given or refused? Why? @ -None Did you discuss the management of the patient with other professionals (p rofessionals i.e. RENETTA Workman, WRAPPING MACHINE OPERATOR, lab, RT, psych nurse, social media developer, tuyere fitter, teacher, evp chief exploration officer, vocational case manager)? Give summary @ -No Was smoking cessation discussed for >3mins.? @ -No Was critical care preformed (if so, how long)? @ -No Were there social determinants of health that impacted care today? How? (Homelessness, low income, unemployed, alcoholism, drug addiction, transportation, low edu. Level, literacy, decrease access to med. care, halfway, rehab)? @ -No Was there de-escalation of care discussed even if they declined (Discuss DNR or withdrawal of care, Hospice)? DNR status @ -No What co-morbidities impacted this encounter? (DM, HTN, Smoking, COPD, CAD, Cancer, CVA, ARF, Chemo, Hep., AIDS, mental health diagnosis, sleep apnea, morbid obesity)? @ -None Was patient admitted / discharged? Hospital course, mention meds given and route, prescriptions, significant lab abnormalities, going to OR and other pertinent info. @ -Is charged. Imaging studies unremarkable. Patient had improvement of pain with Toradol while in the ED. Provided starter pack for [place]. Discharged in stable condition. Discussed return precautions with patient who verbalizes agreement. Undiagnosed new problem with uncertain prognosis? @ -No Drug Therapy requiring intensive monitoring for toxicity (Heparin, Nitro, Insulin, Cardizem)? @ -No Were any procedures done? @ -No Diagnosis/symptom? @ -Left ankle sprain Acute, or Chronic, or Acute on Chronic? @ -Acute Uncomplicated (without systemic symptoms) or Complicated (systemic symptoms)? @ -Uncomplicated Side effects of treatment? @ -No Exacerbation, Progression, or Severe Exacerbation? @ -No Poses a threat to life or bodily function? How? (Chest pain, [place], [place], pneumonia, PE, COPD, DKA, ARF, appy, cholecystitis, CVA, Diverticulitis, Homicidal, Suicidal, threat to staff... and all critical care pts) @ -No Disposition Clinical Impression: Ankle sprain Disposition: HOME SELF-CARE Condition: Good Instructions (If sedation given, give patient instructions): Ankle Sprain (ED) Additional Instructions: Please return to the Emergency Department if symptoms worsen or any other concerns. Is patient prescribed a controlled substance at d/c from ED?: No Referrals: Arleen Hermosillo MD [Primary Care Provider] - 1-2 days Time of Disposition: 22:13
--- NOTE | 2022-08-11 21:59 | XR ---
EXAMINATION TYPE: XR chest 2V DATE OF EXAM: 08/11/2022 9:36 PM COMPARISON: Chest x-ray 01/15/2022 TECHNIQUE: XR chest 2V . CLINICAL INDICATION:Female, 87 years old with history of upper back pain; FINDINGS: Lungs/Pleura: There is no evidence of pleural effusion, focal consolidation, or pneumothorax. Pulmonary vascularity: Unremarkable. Heart/mediastinum: Cardiomediastinal silhouette is unremarkable. Atherosclerotic calcifications are seen in the aorta. Musculoskeletal: Multiple level degenerative disc disease changes seen throughout the spine. IMPRESSION: No acute cardiopulmonary disease/process.
[2022-08-11] MEDS ORDERED: ACET/COD 300 MG/30 MG STARTER PACK 6 TAB BTL PO STA (22:11)
[2022-08-11 22:38] VITALS: BP 141/89; PULSE 75
== END 2022-08-11 22:40 | disposition home or self-care (01) ==
LOC: EC 20:44
DX: S93.402A Sprain of unspecified ligament of left ankle, initial encounter (principal); M54.6 Pain in thoracic spine; M25.551 Pain in right hip; I10 Essential (primary) hypertension; E78.5 Hyperlipidemia, unspecified; K21.9 Gastro-esophageal reflux disease without esophagitis; Z79.899 Other long term (current) drug therapy; Z88.1 Allergy status to other antibiotic agents; W01.0XXA Fall on same level from slipping, tripping and stumbling without subsequent striking against object, initial encounter
CPT/HCPCS: 73502; 73610; 71046; 99283; 96372; J1885

== ENCOUNTER 2022-11-08 20:38 | Inpatient (IN) | payer MEDICARE ==
[2022-11-08] MEDS ORDERED: Alteplase PER PHARMACY Stroke 1 EACH MISC MISCELLANE PRN (20:42)
[2022-11-08] MEDS ORDERED: ALTEPLASE 62 MG in EMPTY BAG 1 BAG IV STA (20:47)
[2022-11-08] MEDS ORDERED: ALTEPLASE BOLUS FOR STROKE 7 MG in EMPTY SYRINGE 1 SYR IV STA (20:47)
[2022-11-08 20:48] LABS: Glucose,Whole Blood 105 mg/dL (70-110)
[2022-11-08 21:01] LABS: Basophils % (A) 0 %; Eosinophils # (A) 0.2 k/uL (0-0.7); Eosinophils % (A) 2 %; HCT 36.6 % (34.0-46.0); HGB 12.3 gm/dL (11.4-16.0); Lymphocytes # (A) 2.2 k/uL (1.0-4.8); Lymphocytes % (A) 26 %; MCH 31.2 pg (25.0-35.0); MCHC 33.6 g/dL (31.0-37.0); Mean Platelet Volume 8.3; Monocytes # (A) 0.7 k/uL (0-1.0); Monocytes % (A) 8 %; Neutrophils # (A) 5.3 k/uL (1.3-7.7); Neutrophils % (A) 62 %; Platelet Count 189 k/uL (150-450); RBC 3.94 m/uL (3.80-5.40); RDW 13.2 % (11.5-15.5); WBC 8.6 k/uL (3.8-10.6)
--- NOTE | 2022-11-08 21:03 | CT ---
EXAMINATION TYPE: CT brain wo con for TPA DATE OF EXAM: 11/08/2022 HISTORY: Neuro deficit, acute, stroke suspected CT DLP: 1218.6 mGycm. Automated Exposure Control for Dose Reduction was Utilized. TECHNIQUE: CT scan of the head is performed without contrast. COMPARISON: Prior CT brain January 15, 2022 FINDINGS: There is no acute intracranial hemorrhage or midline shift identified. There is mild-to-m oderate diffuse ventricular and sulcal prominence redemonstrated. There is moderate low-attenuation in the periventricular white matter redemonstrated. 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 Scleral consultation bilateral globes redemonstrated. Par anasal sinuses remain clear. IMPRESSION: No acute intracranial hemorrhage or midline shift. There is [id number] diffuse ag e-related cerebral atrophy and moderate chronic small vessel ischemic change redemonstrated. There i s left frontal lobe infarct anterior watershed region on current study is new from Prior study but is chronic in age.
[2022-11-08 21:15] LABS: ALT 17 U/L (4-34); AST 25 U/L (14-36); African American GFR (CKD) 53 (>60 ml/min/1.73 sqM); Alkaline Phosphatase 59 U/L (38-126); Anion Gap 11 mmol/L; Blood Urea Nitrogen 20 mg/dL (7-17); Calcium 9.1 mg/dL (8.4-10.2); Carbon Dioxide 25 mmol/L (22-30); Chloride 102 mmol/L (98-107); Creatine Kinase 58 U/L (30-135); Glucose 98 mg/dL (74-99); Non-African American GFR(CKD) 46 (>60 ml/min/1.73 sqM); Potassium 4.4 mmol/L (3.5-5.1); Sodium 138 mmol/L (137-145); Total Bilirubin 0.4 mg/dL (0.2-1.3); Total Protein 6.8 g/dL (6.3-8.2)
[2022-11-08 21:28] LABS: INR 0.9 (<1.2)
[2022-11-08] MEDS ORDERED: SODIUM CHLORIDE 0.9% 50 ML MINI-BAG IV ONE ×2 (21:47→23:18)
--- NOTE | 2022-11-08 21:50 | CT ---
EXAMINATION TYPE: CT angio head neck DATE OF EXAM: 11/08/2022 HISTORY: Code Alteplase, Pt is unable to speak. COMPARISON: None. CT DLP: 420.5 mGycm. Automated Exposure Control for Dose Reduction was Utilized. TECHNIQUE: CTA scan of the head and neck is performed with IV Contrast, patient injected with 65 ml mL of Isovue 370, axial images are obtained, coronal and sagittal reformatted images are reviewed. 3D reconstructed images are created on an independent workstation and reviewed. FINDINGS: Carotid/Vascular Structures: Normal three-vessel origin from aortic arch with mild to moderate periph eral plaque. Moderate to severe mixed plaque in the left subclavian artery causes stenosis just over 50%. Normal origin right common carotid artery from the right brachiocephalic artery. Tortuous course to the proximal internal carotid artery with mild peripheral plaque. No significant plaque or stenos is in the left common carotid artery. Mild peripheral plaque right carotid bulb without significant s tenosis. Mild to moderate peripheral plaque left carotid bulb without significant stenosis. Patent ex ternal carotid arteries bilaterally without significant stenosis. Some tortuous course to the interna l carotid arteries bilaterally. Vertebral arteries are patent to the basilar junction. Left vertebral artery is noted dominant. There is a patent left posterior communicating artery seen. There is hypop lastic right posterior communicating artery noted. No large vessel occlusion or aneurysm in the poste rior circulation. There is hypoplastic right A1 segment with filling of the A2 segment due to patent anterior communica ting artery. No large vessel occlusion or focal aneurysm in the anterior circulation. Other: There is 2.2 cm hyperdense extra-axial right frontal lobe mass anteriorly axial image 55 consi stent with focal meningioma. There is scoliotic curvature with multilevel spurring in the cervical thoracic spine. IMPRESSION: No significant stenosis in common or internal carotid arteries bilaterally. No large ves arnold occlusion or aneurysm at the level of the [place]. Incidental 2.2 cm anterior right frontal lobe meningioma noted. NASCET criteria was used in interpretation of this exam?
--- NOTE | 2022-11-08 21:58 | XR ---
EXAMINATION TYPE: XR chest 1V DATE OF EXAM: 11/08/2022 COMPARISON: Chest x-ray August 11, 2022 HISTORY: Altered mental status TECHNIQUE: Single frontal view of the chest is obtained. FINDINGS: Diminished inspiration on current study. There is no suspicious new focal air space opacit y, pleural effusion, or pneumothorax seen. The cardiac silhouette size is mildly enlarged with ather osclerotic thoracic aorta. The osseous structures are demineralized. IMPRESSION: Mild cardiomegaly without suspicious new acute pulmonary process.
--- NOTE | 2022-11-08 22:15 | ED ---
General Adult HPI - General Chief complaint: Neuro Symptoms/Deficit Stated complaint: Stroke Time Seen by Provider: 11/08/22 20:46 Source: family, EMS, RN notes reviewed, old records reviewed Mode of arrival: EMS - History of Present Illness Initial comments: Patient is an 87-year-old female with past medical history remarkable for hypertension, hyperlipidemia, GERD who presents emergency Department complaining of strokelike symptoms. Last known well was 1930 per patient's . States he left for a 10 minute walk and when he came back she was sitting on the floor and unable to speak to communicate. Patient is not on blood thinners. Was previously on Lovenox per our chart but we were able to confirm that this was only back in February 2022 following a surgery. Has not continued this blood thinning medication. Patient is unable to answer questions effectively that she has expressive aphasia. She does understand and follow commands. No other acute complaints at this time. Presents for stroke. - Related Data Home Medications Medication Instructions Recorded Confirmed Alendronate Sodium [Fosamax] 70 mg PO SA 01/15/22 01/15/22 Ascorbic Acid [Vitamin C] 1,000 mg PO DAILY 01/15/22 01/15/22 Cholecalciferol [Vitamin D3 (25 25 mcg PO DAILY 01/15/22 01/15/22 Mcg = 1000 Iu)] Cyanocobalamin (Vitamin B-12) 1,000 mcg PO DAILY 01/15/22 01/15/22 [Vitamin B-12] Escitalopram [Lexapro] 10 mg PO DAILY 01/15/22 01/15/22 Herbilax 2 cap PO HS 01/15/22 01/15/22 Levothyroxine Sodium [Synthroid] 50 mcg PO DAILY 01/15/22 01/15/22 Losartan [Cozaar] 50 mg PO DAILY 01/15/22 01/15/22 Metoprolol Tartrate [Lopressor] 25 mg PO BID 01/15/22 01/15/22 Multivitamins, Thera [Multivitamin 1 tab PO DAILY 01/15/22 01/15/22 (formulary)] Omeprazole 40 mg PO DAILY 01/15/22 01/15/22 Pravastatin Sodium [Pravachol] 40 mg PO HS 01/15/22 01/15/22 Temazepam [Restoril] 15 mg PO HS PRN 01/15/22 01/15/22 bisacodyL [Dulcolax] 10 mg PO HS 01/15/22 01/15/22 hydroCHLOROthiazide [Hydrodiuril] 12.5 mg PO DAILY 01/15/22 01/15/22 Previous Rx's Medication Instructions Recorded Cyclobenzaprine [Flexeril] 5 mg PO TID #21 tablet 01/19/22 Enoxaparin [Lovenox] 40 mg SQ DAILY #28 each 01/19/22 Ferrous Sulfate [Feosol] 325 mg PO BID 7 Days #14 tab 01/19/22 HYDROcodone/APAP 7.5-325MG [[place] 1 each PO Q6HR PRN #28 tab 01/19/22 7.5] Sennosides/Docusate Sodium [Senna 1 each PO DAILY #20 capsule 01/19/22 Plus 8.6-50 mg Softgel] cefaDROXiL [Duricef] 500 mg PO Q12HR 5 Days #10 cap 01/19/22 Acetaminophen Tab [Tylenol] 650 mg PO Q6HR PRN tab 01/20/22 Docusate [Colace] 100 mg PO BID cap 01/20/22 Allergies Allergy/AdvReac Type Severity Reaction Status Date / Time ciprofloxacin [From Cipro] Allergy Rash/Hives Verified 11/08/22 22:11 on entire body Review of Systems ROS Statement: Those systems with pertinent positive or pertinent negative responses have been documented in the HPI. ROS Other: All systems not noted in ROS Statement are negative. Past Medical History Past Medical History: GERD/Reflux, Hyperlipidemia, Hypertension History of Any Multi-Drug Resistant Organisms: None Reported Past Surgical History: Appendectomy, Breast Surgery, Section, Hysterectomy, Joint Replacement Past Anesthesia/Blood Transfusion Reactions: No Reported Reaction Past Psychological History: No Psychological Hx Reported Smoking Status: Never smoker Past Alcohol Use History: None Reported Past Drug Use History: None Reported General Exam - General Exam Comments Initial Comments: General: Appears in mild distress. HEAD: Normal with no signs of head trauma. EYES: PERRLA, EOMI, conjunctiva normal, no discharge. Pupils are 3 mm and equal bilaterally. ENT: Hearing grossly intact, normal oropharynx. RESPIRATORY: Clear breath sounds bilaterally. No wheezes, rales, or rhonchi. C/V: Regular rate and rhythm. S1 and S2 auscultated, no edema, peripheral pulses 2+ and intact throughout ABD: Abd is soft, nontender, nondistended EXT: Normal range of motion, no obvious deformity SKIN: No rashes or lesions observed on exposed skin. NEURO: Alert and oriented 4. GCS of 15. NIH of 4. 2 points for incorrectly answering the month and date. 2 points for expressive aphasia. Last known well was 1929. Course Vital Signs 11/08/22 11/08/22 11/08/22 20:43 20:55 21:02 Temperature 97.7 F Pulse Rate 60 60 61 Respiratory 18 18 18 Rate Blood Pressure 150/96 175/71 142/87 O2 Sat by Pulse 98 98 96 Oximetry 11/08/22 11/08/22 11/08/22 21:12 21:27 21:42 Temperature Pulse Rate 60 60 58 L Respiratory 18 18 18 Rate Blood Pressure 160/81 146/71 149/62 O2 Sat by Pulse 97 98 96 Oximetry 11/08/22 11/08/22 11/08/22 21:57 22:12 22:25 Temperature Pulse Rate 60 58 L 60 Respiratory 18 16 18 Rate Blood Pressure 131/73 149/61 115/93 O2 Sat by Pulse 96 97 98 Oximetry Medical Decision Making - Medical Decision Making Was pt. sent in by a medical professional or institution (, PA, NAIL TECHNICIAN TEACHER, urgent care, hospital, or [facility]...) When possible be specific @ -No Did you speak to anyone other than the patient for history (EMS, parent, family, police, friend...)? What history was obtained from this source @ -Spoke with EMS for recent history as well as patient's who presents emergency Department and informed surface of last known well's 1929, the fact that patient Baseline is alert and oriented 4 and does all of her ADLs, and that the patient is no longer on blood thinning medication. Did you review nursing and triage notes (agree or disagree)? Why? @ -I reviewed and agree with nursing and triage notes Were old charts reviewed (outside hosp., previous admission, EMS record, old EKG, old radiological studies, urgent care reports/EKG's, [facility] records)? Report findings @ -Old charts are reviewed. Differential Diagnosis (chest pain, altered mental status, abdominal pain women, abdominal pain men, vaginal bleeding, weakness, fever, dyspnea, syncope, headache, dizziness, GI bleed, back pain, seizure, CVA, palpatations, mental health, musculoskeletal)? @ -Differential CVA Ischemic stroke, hemorrhagic stroke, brain tumor, atypical migraine, Wernicke's encephalopathy, seizure, multiple sclerosis, meningitis, encephalitis, hypoglycemia, Guillain-Damon, electrolytes disturbance, myasthenia gravis.... This is not meant to be an all-inclusive list EKG interpreted by me (3pts min.). @ -As above X-rays interpreted by me (1pt min.). @ -Chest X Ray reveals no obvious acute cardio pulmonary process. CT interpreted by me (1pt min.). @ -CT brain reveals no obvious acute intracranial hemorrhage or stroke. There is a chronic remote left frontal lobe infarct. CT angiogram reveals no obvious acute occlusion or blockage. There is an incidental meningioma noted. U/S interpreted by me (1pt. min.). @ -None done What testing was considered but not performed or refused? (CT, X-rays, U/S, labs)? Why? @ -None What meds were considered but not given or refused? Why? @ -None Did you discuss the management of the patient with other professionals (professionals i.e. , PA, NAIL TECHNICIAN TEACHER, lab, RT, psych nurse, pediatric social worker, data analyst etl developer, teacher, commanding officer homicide squad, field nurse case manager)? Give summary @ -Discussed the case with Dr. Trujillo multiple times. Reviewed imaging. He was in agreement with administering TPA as long as the patient is not on blood thinners. This was confirmed after discussion with patient's as she was only on blood thinners for a short period of time following surgery back in February of this year. He was therefore in agreement with TPA. We also reviewed the imaging, and recommended ICU admission for management. Discussed the case with Tino SAMUEL of ICU who accepted the patient to the unit. Discussed with Dr. Hermosillo who accepted the admission. Discussed with Dr. Pizano was in agreement with the plan. Was smoking cessation discussed for >3mins.? @ -No Was critical care preformed (if so, how long)? @ -Yes, 35 minutes. Were there social determinants of health that impacted care today? How? (Homelessness, low income, unemployed, alcoholism, drug addiction, transportati on, low edu. Level, literacy, decrease access to med. care, long-term, rehab)? @ -No Was there de-escalation of care discussed even if they declined (Discuss DNR or withdrawal of care, Hospice)? DNR status @ -No What co-morbidities impacted this encounter? (DM, HTN, Smoking, COPD, CAD, Cancer, CVA, ARF, Chemo, Hep., AIDS, mental health diagnosis, sleep apnea, morbid obesity)? @ -Hypertension, hyperlipidemia Was patient admitted / discharged? Hospital course, mention meds given and route , prescriptions, significant lab abnormalities, going to OR and other pertinent info. @ -Based on the patient's presentation and physical exam, presents with strokelike symptoms. Code alteplase was activated as last known well was 1929. NIH is 4. Patient taken to imaging. Vital signs within acceptable limits. She is not overtly hypertensive. Discussed the case with on-call neuro critical care Dr. Trujillo was in agreement with TPA administration as long as the patient is on a blood thinning medication which she is not and this was confirmed with patient's . Patient therefore was administered TPA at [address] brain no evidence of acute hemorrhagic stroke. CT brain did show a remote left frontal stroke. TPA was discussed with the patient's who consented for the patient. He was advised of all the risks including intracranial bleeding but he was in agreement that the benefits far outweigh the risks, as the patient normally performs all of her ADLs and Baseline is alert and oriented 4. CT angiogram showed no obvious acute evidence of blockage. Chest x-ray shows no obvious acute cardio pulmonary process. Patient's labs unremarkable. EKG showed no evidence of acute ischemia. On reevaluation, vital signs remained within acceptable limits. She is minimally improved but NIH is still mostly 4. Patient will be admitted to the ICU at this time. Patient was in agreement this plan. Patient's was also in agreement this plan. Spoke with Tino of ICU who accepted the patient. Spoke with Dr. Dr. Hermosillo who accepted the patient. Spoke with Dr. Ho of urology who was in agreement with the plan. Undiagnosed new problem with uncertain prognosis? @ -No Drug Therapy requiring intensive monitoring for toxicity (Heparin, Nitro, Insulin, Cardizem)? @ -No Were any procedures done? @ -No Diagnosis/symptom? @ -CVA receiving TPA Acute, or Chronic, or Acute on Chronic? @ -Acute Uncomplicated (without systemic symptoms) or Complicated (systemic symptoms)? @ -Complicated Side effects of treatment? @ -TPA can cause intracranial hemorrhage and slight cases. Risks were advised to the patient's who consented for TPA. Exacerbation, Progression, or Severe Exacerbation? @ -No Poses a threat to life or bodily function? How? (Chest pain, [place], [place], pneumonia, PE, COPD, DKA, ARF, appy, cholecystitis, CVA, Diverticulitis, Homicidal, Suicidal, threat to staff... and all critical care pts) @ -Yes - Lab Data Result diagrams: 11/08/22 20:47 11/08/22 20:47 Lab Results 11/08/22 11/08/22 11/08/22 Range/Units 20:47 20:47 20:47 WBC 8.6 (3.8-10.6) k/uL RBC 3.94 (3.80-5.40) m/uL Hgb 12.3 (11.4-16.0) gm/dL Hct 36.6 (34.0-46.0) % MCV 93.0 (80.0-100.0) fL MCH 31.2 (25.0-35.0) pg MCHC 33.6 (31.0-37.0) g/dL RDW 13.2 (11.5-15.5) % Plt Count 189 (150-450) k/uL MPV 8.3 Neutrophils % 62 % Lymphocytes % 26 % Monocytes % 8 % Eosinophils % 2 % Basophils % 0 % Neutrophils # 5.3 (1.3-7.7) k/uL Lymphocytes # 2.2 (1.0-4.8) k/uL Monocytes # 0.7 (0-1.0) k/uL Eosinophils # 0.2 (0-0.7) k/uL Basophils # 0.0 (0-0.2) k/uL PT 10.0 (9.0-12.0) sec INR 0.9 (<1.2) APTT 23.0 (22.0-30.0) sec Sodium 138 (137-145) mmol/L Potassium 4.4 (3.5-5.1) mmol/L Chloride 102 (98-107) mmol/L Carbon Dioxide 25 (22-30) mmol/L Anion Gap 11 mmol/L BUN 20 H (7-17) mg/dL Creatinine 1.09 H (0.52-1.04) mg/dL Est GFR (CKD-EPI)AfAm 53 (>60 ml/min/1.73 sqM) Est GFR (CKD-EPI)NonAf 46 (>60 ml/min/1.73 sqM) Glucose 98 (74-99) mg/dL POC Glucose (mg/dL) (70-110) mg/dL POC Glu Production Support Developer ID Calcium 9.1 (8.4-10.2) mg/dL Total Bilirubin 0.4 (0.2-1.3) mg/dL AST 25 (14-36) U/L ALT 17 (4-34) U/L Alkaline Phosphatase 59 (38-126) U/L Creatine Kinase 58 (30-135) U/L Troponin I (0.000-0.034) ng/mL Total Protein 6.8 (6.3-8.2) g/dL Albumin 4.0 (3.5-5.0) g/dL Urine Color Urine Appearance (Clear) Urine pH (5.0-8.0) Ur Specific [place] (1.001-1.035) Urine Protein (Negative) Urine Glucose (UA) (Negative) Urine Ketones (Negative) Urine Blood (Negative) Urine Nitrite (Negative) Urine Bilirubin (Negative) Urine Urobilinogen (<2.0) mg/dL Ur Leukocyte Esterase (Negative) Urine RBC (0-5) /hpf Urine WBC (0-5) /hpf Urine WBC Clumps (None) /hpf Ur Squamous Epith Cells (0-4) /hpf Urine Bacteria (None) /hpf Urine Mucus (None) /hpf 11/08/22 11/08/22 11/08/22 Range/Units 20:47 20:47 21:00 WBC (3.8-10.6) k/uL RBC (3.80-5.40) m/uL Hgb (11.4-16.0) gm/dL Hct (34.0-46.0) % MCV (80.0-100.0) fL MCH (25.0-35.0) pg MCHC (31.0-37.0) g/dL RDW (11.5-15.5) % Plt Count (150-450) k/uL MPV Neutrophils % % Lymphocytes % % Monocytes % % Eosinophils % % Basophils % % Neutrophils # (1.3-7.7) k/uL Lymphocytes # (1.0-4.8) k/uL Monocytes # (0-1.0) k/uL Eosinophils # (0-0.7) k/uL Basophils # (0-0.2) k/uL PT (9.0-12.0) sec INR (<1.2) APTT (22.0-30.0) sec Sodium (137-145) mmol/L Potassium (3.5-5.1) mmol/L Chloride (98-107) mmol/L Carbon Dioxide (22-30) mmol/L Anion Gap mmol/L BUN (7-17) mg/dL Creatinine (0.52-1.04) mg/dL Est GFR (CKD-EPI)AfAm (>60 ml/min/1.73 sqM) Est GFR (CKD-EPI)NonAf (>60 ml/min/1.73 sqM) Glucose (74-99) mg/dL POC Glucose (mg/dL) 105 (70-110) mg/dL POC Glu Production Support Developer ID Aj, Jasmina Calcium (8.4-10.2) mg/dL Total Bilirubin (0.2-1.3) mg/dL AST (14-36) U/L ALT (4-34) U/L Alkaline Phosphatase (38-126) U/L Creatine Kinase (30-135) U/L Troponin I <0.012 (0.000-0.034) ng/mL Total Protein (6.3-8.2) g/dL Albumin (3.5-5.0) g/dL Urine Color Light Yellow Urine Appearance Turbid H (Clear) Urine pH 5.5 (5.0-8.0) Ur Specific [place] 1.019 (1.001-1.035) Urine Protein Trace H (Negative) Urine Glucose (UA) Negative (Negative) Urine Ketones Negative (Negative) Urine Blood Trace H (Negative) Urine Nitrite Positive H (Negative) Urine Bilirubin Negative (Negative) Urine Urobilinogen <2.0 (<2.0) mg/dL Ur Leukocyte Esterase Large H (Negative) Urine RBC 18 H (0-5) /hpf Urine WBC >182 H (0-5) /hpf Urine WBC Clumps Few H (None) /hpf Ur Squamous Epith Cells 37 H (0-4) /hpf Urine Bacteria Many H (None) /hpf Urine Mucus Rare H (None) /hpf - EKG Data -: EKG Interpreted by Me EKG Comments: 12-lead Electrocardiogram Interpretation Note EKG was reviewed and interpreted by myself. 12-lead ECG performed at 2046 is interpreted by me as revealing normal sinus rhythm at a rate of 63 beats per minute. [place] is normal. [place] interval is 214 ms, QRS durations 100 ms, QTc is 432 ms.. There were no ST or T wave abnormalities to suggest myocardial ischemia or injury. R wave progression across the precordium was satisfactory. By my interpretation this EKG is non-diagnostic for acute ischemia. Disposition Clinical Impression: Cerebrovascular accident (CVA) Disposition: ADMITTED IP TO THIS HOSP Condition: Stable Time of Disposition: 22:08
[2022-11-08 22:25] LABS: Appearance,Urine Turbid (Clear); Bacteria,Urine Many /hpf; Bilirubin,Urine Negative (Negative); Blood,Urine Trace (Negative); Color,Urine Light Yellow; Glucose,Urine (UA) Negative (Negative); Ketones,Urine Negative (Negative); Leukocyte Esterase,Urine Large (Negative); Mucus,Urine Rare /hpf; Nitrite,Urine Positive (Negative); PH, Urine 5.5 (5.0-8.0); Protein,Urine Trace (Negative); RBC,Urine 18 /hpf (0-5); Specific Gravity,Urine 1.019 (1.001-1.035); Squamous Epithelial Cell,Urine 37 /hpf (0-4); Urobilinogen,Urine <2.0 mg/dL (<2.0); WBC,Urine >182 /hpf (0-5)
[2022-11-08 22:35] LABS: Glucose,Whole Blood 98 mg/dL (70-110)
--- NOTE | 2022-11-09 02:18 | P.CNPUL ---
History of Present Illness Consult date: 11/09/22 Requesting physician: Juan R Sharp Reason for consult: other (ICU management) Chief complaint: Aphasia History of present illness: I am seeing this patient in consultation today 11/09/2022 in the intensive care unit following TPA administration in the ER for CVA-like symptoms. Patient is an 87-year-old female past medical history significant for hypertension, hyperlipidemia, GERD. Patient was lying in bed. Her left the house for about 10 minutes. When he came back, the patient was found on the floor at the foot of the bed. She was aphasic. He called EMS. Last known well was approximately 1930. NIH was scored at 4 in the emergency room. There were no identified contraindications to TPA. Nonenhanced brain CT showed no acute intracranial hemorrhage or midline shift. 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 There was mild-moderate age-related cerebral atrophy and moderate chronic small vessel ischemic changes. Brain CTA did not show any significant stenosis, occlusions, aneurysms. There was a 2.2 cm anterior right frontal lobe meningioma. Neuro-interventionalist recommended fibrinolytics. Patient is currently in the intensive care unit, on room air, in no acute distress. According to her , who is at bedside, her expressive dysphasia has significantly improved post TPA. She is able to speak in full sentences, occasionally cannot find the appropriate words. No other deficits noted. CBC on arrival is unremarkable. CMP on arrival was also unremarkable. ECG shows normal sinus rhythm without any acute ischemic changes. Urinalysis, shows nitrates and leukocytes and many bacteria. When asked, she has no urinary complaints. Likely asymptomatic bacteriuria. Afebrile. Patient is being monitored in the intensive care unit at least overnight. Review of Systems REVIEW OF SYSTEMS: CONSTITUTIONAL: Denies any recent significant weight loss or weight gain. EYES: Denies change in vision. EARS, NOSE, MOUTH, THROAT: Denies headaches, denies sore throat. CARDIOVASCULAR: Denies chest pain, palpitations or syncopal episodes. RESPIRATORY: Denies shortness of breath, cough, congestion or hemoptysis. GASTROINTESTINAL: Denies change in appetite, abdominal pain, nausea and vomiting, or diarrhea GENITOURINARY: Denies hematuria, denies infections. MUSKULOSKELETAL: Denies pain, denies swelling. INTEGUMENTARY: Denies rash, denies eczema. NEUROLOGICAL: Denies recent memory loss, no recent seizure activity. PSYCHIATRIC: Denies anxiety, denies depression. HEMATOLOGIC/LYMPHATIC: Denies anemia, denies enlarged lymph node Past Medical History Past Medical History: GERD/Reflux, Hyperlipidemia, Hypertension History of Any Multi-Drug Resistant Organisms: None Reported Past Surgical History: Appendectomy, Breast Surgery, Section, Hysterectomy, Joint Replacement Past Anesthesia/Blood Transfusion Reactions: No Reported Reaction Past Psychological History: No Psychological Hx Reported Smoking Status: Never smoker Past Alcohol Use History: None Reported Past Drug Use History: None Reported Medications and Allergies Home Medications Medication Instructions Recorded Confirmed Type Alendronate Sodium [Fosamax] 70 mg PO SA 01/15/22 01/15/22 History Ascorbic Acid [Vitamin C] 1,000 mg PO DAILY 01/15/22 01/15/22 History Cholecalciferol [Vitamin D3 (25 25 mcg PO DAILY 01/15/22 01/15/22 History Mcg = 1000 Iu)] Cyanocobalamin (Vitamin B-12) 1,000 mcg PO DAILY 01/15/22 01/15/22 History [Vitamin B-12] Escitalopram [Lexapro] 10 mg PO DAILY 01/15/22 01/15/22 History Herbilax 2 cap PO HS 01/15/22 01/15/22 History Levothyroxine Sodium [Synthroid] 50 mcg PO DAILY 01/15/22 01/15/22 History Losartan [Cozaar] 50 mg PO DAILY 01/15/22 01/15/22 History Metoprolol Tartrate [Lopressor] 25 mg PO BID 01/15/22 01/15/22 History Multivitamins, Thera [Multivitamin 1 tab PO DAILY 01/15/22 01/15/22 History (formulary)] Omeprazole 40 mg PO DAILY 01/15/22 01/15/22 History Pravastatin Sodium [Pravachol] 40 mg PO HS 01/15/22 01/15/22 History Temazepam [Restoril] 15 mg PO HS PRN 01/15/22 01/15/22 History bisacodyL [Dulcolax] 10 mg PO HS 01/15/22 01/15/22 History hydroCHLOROthiazide [Hydrodiuril] 12.5 mg PO DAILY 01/15/22 01/15/22 History Cyclobenzaprine [Flexeril] 5 mg PO TID #21 tablet 01/19/22 Rx Enoxaparin [Lovenox] 40 mg SQ DAILY #28 each 01/19/22 Rx Ferrous Sulfate [Feosol] 325 mg PO BID 7 Days #14 tab 01/19/22 Rx HYDROcodone/APAP 7.5-325MG [[place] 1 each PO Q6HR PRN #28 tab 01/19/22 Rx 7.5] Sennosides/Docusate Sodium [Senna 1 each PO DAILY #20 capsule 01/19/22 Rx Plus 8.6-50 mg Softgel] cefaDROXiL [Duricef] 500 mg PO Q12HR 5 Days #10 cap 01/19/22 Rx Acetaminophen Tab [Tylenol] 650 mg PO Q6HR PRN tab 01/20/22 Rx Docusate [Colace] 100 mg PO BID cap 01/20/22 Rx Allergies Allergy/AdvReac Type Severity Reaction Status Date / Time ciprofloxacin [From Cipro] Allergy Rash/Hives Verified 11/08/22 22:11 on entire body Physical Exam Vitals: Vital Signs Temp Pulse Resp BP Pulse Ox 11/09/22 01:00 60 17 133/46 96 11/09/22 00:57 63 13 138/56 95 11/09/22 00:45 56 L 14 140/55 95 11/09/22 00:35 56 L 12 140/55 97 11/09/22 00:30 57 L 14 152/63 94 L 11/09/22 00:27 55 L 14 140/65 97 11/09/22 00:15 62 13 101/62 97 11/09/22 00:00 60 14 154/54 97 11/08/22 23:57 58 L 14 101/64 96 11/08/22 23:45 61 12 155/56 96 11/08/22 23:30 58 L 17 145/78 95 11/08/22 23:26 57 L 13 145/78 97 11/08/22 23:25 57 L 17 145/78 96 11/08/22 22:57 58 L 21 141/64 95 11/08/22 22:30 59 L 13 115/93 11/08/22 22:27 98.4 F 66 12 149/63 96 11/08/22 22:25 60 18 115/93 98 11/08/22 22:15 58 L 12 149/61 11/08/22 22:12 58 L 16 149/61 97 11/08/22 22:00 70 9 L 131/73 11/08/22 21:57 60 18 131/73 96 11/08/22 21:45 55 L 11 L 149/62 96 11/08/22 21:42 58 L 18 149/62 96 11/08/22 21:30 60 8 L 160/81 97 11/08/22 21:27 60 18 146/71 98 11/08/22 21:15 63 14 142/87 97 11/08/22 21:12 60 18 160/81 97 11/08/22 21:11 62 14 142/87 97 11/08/22 21:02 61 18 142/87 96 11/08/22 20:55 60 18 175/71 98 11/08/22 20:43 97.7 F 60 18 150/96 98 Intake and Output 11/08/22 11/08/22 11/09/22 14:59 22:59 06:59 Intake Total 50 Output Total 250 Balance -200 Intake: IV 50 0.9% 50 Output: Urine 250 Other: Weight 77.4 kg GENERAL EXAM: Alert, 79-year-old white female appearing stated age, comfortable in no apparent distress. HEAD: Normocephalic and atraumatic EYES: Normal reaction of pupils, equal size. NOSE: Clear with pink turbinates. THROAT: No erythema or exudates. NECK: No masses, no JVD. CHEST: No chest wall deformity. LUNGS: Equal air entry with no crackles, wheeze, rhonchi or dullness. No conversational dyspnea or accessory muscle use.. CVS: S1 and S2 normal with no audible murmur, regular rhythm. No extra heart sounds ABDOMEN: No hepatosplenomegaly, active bowel sounds, no guarding or rigidity. SPINE: No scoliosis or deformity SKIN: No rashes CENTRAL NERVOUS SYSTEM: Patient is alert and oriented. No unilateral facial weakness/droop. Vision is intact. Extraocular movement intact. No nystagmus. There is still some residual expressive dysphasia. Tongue is midline. Shoulder shrug equal and normal bilaterally. Extremity strength 5/5 throughout. Sensation intact. No ataxia. Deep tendon reflexes 1-2+ throughout. No neglect. EXTREMITIES: There is no peripheral edema, clubbing, or cyanosis. Peripheral pulses are intact. 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 Patient still has some residual expressive aphasia, otherwise, no other residual deficits. Nonenhanced brain CT showed no acute intracranial hemorrhage or midline shift. 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 There was mild- moderate age-related cerebral atrophy and moderate chronic small vessel ischemic changes. Brain CTA did not show any large vessel significant stenosis, occlusions, or aneurysms. There was a 2.2 cm anterior right frontal lobe meningioma. Hyperlipidemia Benign essential hypertension Asymptomatic bacteriuria Hypothyroidism GERD Never smoker Plan: Patient is currently being monitored in the intensive care unit status post TPA infusion Neuro checks per protocol Neurology consult was obtained Follow-up CT of the brain 24 hours post TPA is ordered Swallow screen and speech therapy consult placed We will continue to follow while the patient is in the intensive care unit I have personally seen and examined the patient, performed the documentation and the assessment and plan as written. Number of minutes spent on the visit:20 This is a joint evaluation that was done along with the nurse practitioner. In summary, this patient came in with expressive aphasia and the patient was given thrombolytics. The CTA of the brain was done and it showed no significant stenosis in the common or internal carotid arteries. No large vessel occlusion. There was an incidental 2.2 cm anterior frontal lobe meningioma. The patient was given thrombolytics. She is improved. Her speech is improved significantly. She is at times having some difficulties in finding a few words he has from my standpoint, she has adequate speech. Motor function is equal and symmetrical in all 4 extremities. No cranial nerve deficits. A follow-up CAT scan will be obtained this evening after 24 hours of thrombolytic administration. LDL cholesterol is at 87. The patient is currently hemodynamically stable. Most recent BP is 106/38. Echocardiogram has been ordered. She is having symptoms of UTI. UA was abnormal and we'll obtain cultures and will start the patient on antibiotics. I reviewed her previous UAs. The patient has had frequent infections with enterococcus and gram- negative bacteria including E. coli and Citrobacter. I'm willing to start the patient on Augmentin. This will be started pending urine cultures. Awaiting neurology consultation. We'll continue to follow. Cardiac rhythm is sinus. Time with Patient: Greater than 30
[2022-11-09 04:57] LABS: Basophils % (A) 0 %; Eosinophils # (A) 0.1 k/uL (0-0.7); Eosinophils % (A) 1 %; HCT 35.7 % (34.0-46.0); HGB 12.1 gm/dL (11.4-16.0); Lymphocytes # (A) 1.7 k/uL (1.0-4.8); Lymphocytes % (A) 15 %; MCH 31.6 pg (25.0-35.0); MCHC 34.1 g/dL (31.0-37.0); MCV 92.7 fL (80.0-100.0); Mean Platelet Volume 7.8; Monocytes # (A) 0.5 k/uL (0-1.0); Monocytes % (A) 5 %; Neutrophils # (A) 8.6 k/uL (1.3-7.7); Neutrophils % (A) 78 %; Platelet Count 190 k/uL (150-450); RBC 3.85 m/uL (3.80-5.40); WBC 11.1 k/uL (3.8-10.6)
[2022-11-09 05:25] LABS: African American GFR (CKD) 61 (>60 ml/min/1.73 sqM); Anion Gap 10 mmol/L; Blood Urea Nitrogen 20 mg/dL (7-17); Carbon Dioxide 24 mmol/L (22-30); Chloride 104 mmol/L (98-107); Glucose 93 mg/dL (74-99); Non-African American GFR(CKD) 53 (>60 ml/min/1.73 sqM); Potassium 4.4 mmol/L (3.5-5.1); Sodium 138 mmol/L (137-145)
[2022-11-09 09:01] LABS: Chol/HDL Ratio 2.99 Ratio; LDL Cholesterol,Calculated 87.7 mg/dL (0.0-131.0); VLDL Calculation 19.36 mg/dL (5.00-40.00)
[2022-11-09] MEDS ORDERED: LEVOTHYROXINE 50 MCG TAB PO SCH (09:30)
[2022-11-09] MEDS: AMOXIC-POT CLAV 875-125MG 1 EACH TAB PO SCH ×2 (11:03→20:51)
[2022-11-09] MEDS: ESCITALOPRAM 10 MG TAB PO SCH (11:03)
[2022-11-09] MEDS: ASCORBIC ACID 500 MG TAB PO SCH (11:08)
--- NOTE | 2022-11-09 12:28 | P.HPIM ---
History of Present Illness H&P Date: 11/09/22 Chief Complaint: CVA Mirna Dillon is a 87 year old female patient who presented to the ER with concerns of aphasia and strokelike symptoms. Patient's was home and left for 10 minutes and came back on patient on the floor and is able to communicate. Patient denies loss of consciousness. Patient has past medical history of hypertension, hyperlipidemia, GERD. Head CT was performed showing no acute intracranial hemorrhage midline shift or is mild to moderate diffuse age-related cerebral atrophy and moderate chronic small vessel ischemic change redemonstrated. There is a left frontal lobe infarct anterior watershed region are currently studying from prior study. CTA completed showing no significant stenosis in common or intercarotid arteries bilaterally no large vessel occlusion or aneurysm at the level of the [place] incidental 2.2 cm anterior right frontal lobe meningioma noted. Chest x-ray completed showing mild cardiomegaly without suspicious new acute pulmonary process. Sinus rhythm with first-degree AV block with occasional supraventricular premature complexes. Stroke protocol was initiated in the ER and patient did qualify for fibr inolytics. TPA was administered symptoms significantly improved post TPA. Patient was able to speak full sentences post TPA UA positive for urinary tract infection urine culture has been ordered. Patient has been admitted to the intensive care unit per stroke protocol post TPA protocol. Critical care neurology services have been consulted repeat computed tomography scan has been ordered. Vital signs include temperature 98.3, heart rate 64, respiratory rate 17, blood pressure 128/49 with a pulse ox of 95% on room air. Review of Systems Please refer to HPI otherwise unremarkable Past Medical History Past Medical History: GERD/Reflux, Hyperlipidemia, Hypertension History of Any Multi-Drug Resistant Organisms: None Reported Past Surgical History: Appendectomy, Breast Surgery, Section, Hysterectomy, Joint Replacement Past Anesthesia/Blood Transfusion Reactions: No Reported Reaction Past Psychological History: No Psychological Hx Reported Smoking Status: Never smoker Past Alcohol Use History: None Reported Past Drug Use History: None Reported Medications and Allergies Home Medications Medication Instructions Recorded Confirmed Type Alendronate Sodium [Fosamax] 70 mg PO Q7D 01/15/22 11/09/22 History Escitalopram [Lexapro] 10 mg PO DAILY 01/15/22 11/09/22 History Metoprolol Tartrate [Lopressor] 25 mg PO BID 01/15/22 11/09/22 History Pravastatin Sodium [Pravachol] 40 mg PO DAILY 01/15/22 11/09/22 History Temazepam [Restoril] 15 mg PO HS PRN 01/15/22 11/09/22 History Estradiol Cream [Estrace Cream 1 gm VAGINAL DIRECTED 11/09/22 11/09/22 History 0.01%] Fluticasone Nasal [place] [Flonase 1 spr EA NOSTRIL DAILY 11/09/22 11/09/22 History Nasal [place]] Levothyroxine Sodium [Synthroid] 75 mcg PO DAILY 11/09/22 11/09/22 History Omeprazole 20 mg PO DAILY 11/09/22 11/09/22 History Potassium Chloride ER [K-Dur 20] 20 meq PO DAILY 11/09/22 11/09/22 History Allergies Allergy/AdvReac Type Severity Reaction Status Date / Time ciprofloxacin [From Cipro] Allergy Rash/Hives Verified 11/08/22 22:11 on entire body Physical Exam Vitals: Vital Signs Temp Pulse Resp BP Pulse Ox 11/09/22 09:00 65 16 99/26 90 L 11/09/22 08:14 95 11/09/22 08:00 64 20 123/58 96 11/09/22 07:00 57 L 14 121/56 94 L 11/09/22 06:27 62 13 121/56 96 11/09/22 06:00 60 16 135/51 94 L 11/09/22 05:27 56 L 12 135/51 97 11/09/22 05:00 59 L 13 141/44 93 L 11/09/22 04:30 58 L 12 137/66 96 11/09/22 04:27 59 L 12 141/44 94 L 11/09/22 04:00 98.3 F 64 17 128/49 95 11/09/22 03:57 61 16 128/49 94 L 11/09/22 03:30 60 13 125/68 91 L 11/09/22 03:27 60 12 125/68 94 L 11/09/22 03:00 60 14 126/67 97 11/09/22 02:57 58 L 13 126/67 95 11/09/22 02:30 58 L 13 137/49 96 11/09/22 02:27 57 L 14 137/49 96 11/09/22 02:00 57 L 13 151/71 96 11/09/22 01:57 58 L 13 151/71 96 11/09/22 01:45 57 L 16 136/62 97 11/09/22 01:30 59 L 15 132/52 97 11/09/22 01:27 65 13 136/62 95 11/09/22 01:15 60 12 138/56 96 11/09/22 01:00 60 17 133/46 96 11/09/22 00:57 63 13 138/56 95 11/09/22 00:45 56 L 14 140/55 95 11/09/22 00:35 56 L 12 140/55 97 11/09/22 00:30 57 L 14 152/63 94 L 11/09/22 00:27 55 L 14 140/65 97 11/09/22 00:15 62 13 101/62 97 11/09/22 00:00 60 14 154/54 97 11/08/22 23:57 58 L 14 101/64 96 11/08/22 23:45 61 12 155/56 96 11/08/22 23:30 58 L 17 145/78 95 11/08/22 23:26 57 L 13 145/78 97 11/08/22 23:25 57 L 17 145/78 96 11/08/22 22:57 58 L 21 141/64 95 11/08/22 22:30 59 L 13 115/93 11/08/22 22:27 98.4 F 66 12 149/63 96 11/08/22 22:25 60 18 115/93 98 11/08/22 22:15 58 L 12 149/61 11/08/22 22:12 58 L 16 149/61 97 11/08/22 22:00 70 9 L 131/73 11/08/22 21:57 60 18 131/73 96 11/08/22 21:45 55 L 11 L 149/62 96 11/08/22 21:42 58 L 18 149/62 96 11/08/22 21:30 60 8 L 160/81 97 11/08/22 21:27 60 18 146/71 98 11/08/22 21:15 63 14 142/87 97 11/08/22 21:12 60 18 160/81 97 11/08/22 21:11 62 14 142/87 97 11/08/22 21:02 61 18 142/87 96 11/08/22 20:55 60 18 175/71 98 11/08/22 20:43 97.7 F 60 18 150/96 98 Intake and Output 11/08/22 11/09/22 11/09/22 22:59 06:59 14:59 Intake Total 50 Output Total 480 200 Balance -430 -200 Intake: IV 50 0.9% 50 Output: Urine 480 200 Other: Voiding Method External Catheter External Catheter # Voids 0 Weight 77.4 kg 78.3 kg Head normocephalic an atraumatic Neck supple Lungs clear to auscultation bilaterally no wheezing or crackles Heart regular rate and rhythm S1-S2, no rub or gallop Abdomen is soft nontender nondistended positive bowel sounds no hepatosplenomegaly Extremities no edema Neuro alert and orientated to 3, aphasia, no weakness or numbness in extremities Results CBC & Chem 7: 11/09/22 04:17 11/09/22 04:17 Labs: Abnormal Lab Results - Last 24 Hours (Table) 11/08/22 11/08/22 11/09/22 Range/Units 20:47 21:00 04:17 WBC (3.8-10.6) k/uL Neutrophils # (1.3-7.7) k/uL BUN 20 H 20 H (7-17) mg/dL Creatinine 1.09 H (0.52-1.04) mg/dL Urine Appearance Turbid H (Clear) Urine Protein Trace H (Negative) Urine Blood Trace H (Negative) Urine Nitrite Positive H (Negative) Ur Leukocyte Esterase Large H (Negative) Urine RBC 18 H (0-5) /hpf Urine WBC >182 H (0-5) /hpf Urine WBC Clumps Few H (None) /hpf Ur Squamous Epith Cells 37 H (0-4) /hpf Urine Bacteria Many H (None) /hpf Urine Mucus Rare H (None) /hpf 11/09/22 Range/Units 04:17 WBC 11.1 H (3.8-10.6) k/uL Neutrophils # 8.6 H (1.3-7.7) k/uL BUN (7-17) mg/dL Creatinine (0.52-1.04) mg/dL Urine Appearance (Clear) Urine Protein (Negative) Urine Blood (Negative) Urine Nitrite (Negative) Ur Leukocyte Esterase (Negative) Urine RBC (0-5) /hpf Urine WBC (0-5) /hpf Urine WBC Clumps (None) /hpf Ur Squamous Epith Cells (0-4) /hpf Urine Bacteria (None) /hpf Urine Mucus (None) /hpf Thrombosis Risk Factor Assmnt - Choose All That Apply Any of the Below Risk Factors Present?: No Other Risk Factors: Yes Each Risk Factor Represents 3 Points: Age 75 years or older Other congenital or acquired thrombophilia - If yes, enter type in comment: Yes Each Risk Factor Represents 5 Points: Stroke (< 1 month) Thrombosis Risk Factor Assessment Total Risk Factor Score: 8 Thrombosis Risk Factor Assessment Level: High Risk Assessment and Plan Assessment: 1. 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 Symptoms improved post TPA 2. Incidental finding of right frontal lobe meningioma. Neurology services consulted 3. Urinary tract infection she was started on Augmentin urine culture ordered 4. History of hyperlipidemia 5. Essential hypertension 6. Hypothyroidism 7. History of GERD 8. Right hip replacement in January 2022 Patient has been admitted to the intensive care unit post TPA Neurology critical care service is following 2-D echo ordered Repeat head CT ordered Urine culture ordered PT OT and speech services consulted Repeat labs ordered Time with Patient: Greater than 30 (Greater than 60% of the total time spent in counseling and coordination of care)
--- NOTE | 2022-11-09 13:36 | P.CNNES ---
History of Present Illness Consult date: 11/09/22 Requesting physician: Juan R Sharp Reason for Consult: CVA with tpa History of Present Illness: Patient is a 87-year-old right-handed female, otherwise healthy, came to the hospital by ambulance yesterday at 8:38 PM for acute stroke symptoms. As per EMS flow sheet, it was reported that patient's went to a store and was gone for about 15 minutes. He said when he left his was sitting in the chair perfectly fine. When he returned, she was sitting on the floor "walking gibberish", and having problems getting the words out so he called 911. Her glucose was 101. Patient would attempt to answer questions, but could not form the words or food see the wrong thing. When asked yes or no questions, she was able to answer appropriately. There was no arm drift in the manager adobe strength for strong and equal. No facial droop. She only had aphasia. Patient does have history of hypertension. Patient's blood pressure at the scene was 200/79, pulse rate 64 and respiration [address] head revealed no acute intracranial hemorrhage or midline shift. There is mild to moderate diffuse age-related cerebral atrophy and moderate chronic small vessel ischemic change redemonstrated. There is left frontal lobe infarct anterior watershed region on current study is new from prior study of 2021, but is chronic in age. I personally reviewed CT head, and it appears that encephalomalacia involves the left frontal region in the MCA territory, not typically watershed region. Blood test shows normal CBC PT/PTT, electrolytes, BUN 20, creatinine 1.09. Hepatic panel, troponin is normal CK normal. UA shows large amount of leukocyte esterase, positive nitrite, few WBC clumps, more than 182 WBCs. Patient was evaluated by the ED staff. Case discussed with stroke neurologist Dr. Trujillo, her NIH stroke scale was 4 and patient was considered a candidate for TPA. Patient received TPA in timely manner. Patient was transferred to the ICU. Patient at this time tells me that she took a tumble, did not fall, hurt herself. She tried to get up, could not. She noticed at that time trouble with speech. There was no facial droop, focal weakness, headache or any numbness. No seizure-like activity. Her called EMS and she was brought to the hospital. Patient denies any previous history of strokes or TIA. In January 2022, she suffered from a fall, and she fractured her right hip. She had little limp after surgery. She did not have any strokelike symptoms at that time. I nterestingly CT head performed at that time was normal, whereas the current CT head showed a chronic encephalomalacia left frontal region. Patient has history of recurrent UTI. Patient denies any history of hypertension, diabetes, any tobacco or alcohol use. Review of Systems Constitutional: Denies chills, Denies fever Eyes: denies blurred vision, denies diplopia, denies pain Ears: bilateral: decreased hearing (age related), deny: ear discharge Ears, nose, mouth and throat: Denies headache, Denies sore throat Cardiovascular: Denies chest pain, Denies shortness of breath Respiratory: Denies cough, Denies excessive sputum Gastrointestinal: Denies abdominal pain, Denies diarrhea, Denies nausea, Denies vomiting Genitourinary: Denies dysuria, Denies hematuria, Denies stress incontinence, Denies urge incontinence Musculoskeletal: Reports low back pain (Chronic), Denies myalgias, Denies neck pain Integumentary: Denies pruritus, Denies rash Neurological: Reports as per HPI Psychiatric: Denies anxiety, Denies depression (Stressed) Endocrine: Denies fatigue, Denies weight change Hematologic/Lymphatic: Denies easy bleeding, Denies easy bruising Past Medical History Past Medical History: GERD/Reflux, Hyperlipidemia, Hypertension History of Any Multi-Drug Resistant Organisms: None Reported Past Surgical History: Appendectomy, Breast Surgery, Section, Hysterectomy, Joint Replacement Past Anesthesia/Blood Transfusion Reactions: No Reported Reaction Past Psychological History: No Psychological Hx Reported Smoking Status: Never smoker Past Alcohol Use History: None Reported Past Drug Use History: None Reported Medications and Allergies Home Medications Medication Instructions Recorded Confirmed Type Alendronate Sodium [Fosamax] 70 mg PO Q7D 01/15/22 11/09/22 History Escitalopram [Lexapro] 10 mg PO DAILY 01/15/22 11/09/22 History Metoprolol Tartrate [Lopressor] 25 mg PO BID 01/15/22 11/09/22 History Pravastatin Sodium [Pravachol] 40 mg PO DAILY 01/15/22 11/09/22 History Temazepam [Restoril] 15 mg PO HS PRN 01/15/22 11/09/22 History Estradiol Cream [Estrace Cream 1 gm VAGINAL DIRECTED 11/09/22 11/09/22 History 0.01%] Fluticasone Nasal [place] [Flonase 1 spr EA NOSTRIL DAILY 11/09/22 11/09/22 History Nasal [place]] Levothyroxine Sodium [Synthroid] 75 mcg PO DAILY 11/09/22 11/09/22 History Omeprazole 20 mg PO DAILY 11/09/22 11/09/22 History Potassium Chloride ER [K-Dur 20] 20 meq PO DAILY 11/09/22 11/09/22 History Allergies Allergy/AdvReac Type Severity Reaction Status Date / [facility] All[facility] Rash/Hives Verified 11/08/22 22:11 on entire body Physical Examination - Vital Signs Vital Signs: Vital Signs Temp Pulse Resp BP Pulse Ox 11/09/22 10:00 62 14 105/38 97 11/09/22 09:00 65 16 99/26 90 L 11/09/22 08:14 95 11/09/22 08:00 64 20 123/58 96 11/09/22 07:00 57 L 14 121/56 94 L 11/09/22 06:27 62 13 121/56 96 11/09/22 06:00 60 16 135/51 94 L 11/09/22 05:27 56 L 12 135/51 97 11/09/22 05:00 59 L 13 141/44 93 L 11/09/22 04:30 58 L 12 137/66 96 11/09/22 04:27 59 L 12 141/44 94 L 11/09/22 04:00 98.3 F 64 17 128/49 95 11/09/22 03:57 61 16 128/49 94 L 11/09/22 03:30 60 13 125/68 91 L 11/09/22 03:27 60 12 125/68 94 L 11/09/22 03:00 60 14 126/67 97 11/09/22 02:57 58 L 13 126/67 95 11/09/22 02:30 58 L 13 137/49 96 11/09/22 02:27 57 L 14 137/49 96 11/09/22 02:00 57 L 13 151/71 96 11/09/22 01:57 58 L 13 151/71 96 11/09/22 01:45 57 L 16 136/62 97 11/09/22 01:30 59 L 15 132/52 97 11/09/22 01:27 65 13 136/62 95 11/09/22 01:15 60 12 138/56 96 11/09/22 01:00 60 17 133/46 96 11/09/22 00:57 63 13 138/56 95 11/09/22 00:45 56 L 14 140/55 95 11/09/22 00:35 56 L 12 140/55 97 11/09/22 00:30 57 L 14 152/63 94 L 11/09/22 00:27 55 L 14 140/65 97 11/09/22 00:15 62 13 101/62 97 11/09/22 00:00 60 14 154/54 97 11/08/22 23:57 58 L 14 101/64 96 11/08/22 23:45 61 12 155/56 96 11/08/22 23:30 58 L 17 145/78 95 11/08/22 23:26 57 L 13 145/78 97 11/08/22 23:25 57 L 17 145/78 96 11/08/22 22:57 58 L 21 141/64 95 11/08/22 22:30 59 L 13 115/93 11/08/22 22:27 98.4 F 66 12 149/63 96 11/08/22 22:25 60 18 115/93 98 11/08/22 22:15 58 L 12 149/61 11/08/22 22:12 58 L 16 149/61 97 11/08/22 22:00 70 9 L 131/73 11/08/22 21:57 60 18 131/73 96 11/08/22 21:45 55 L 11 L 149/62 96 11/08/22 21:42 58 L 18 149/62 96 11/08/22 21:30 60 8 L 160/81 97 11/08/22 21:27 60 18 146/71 98 11/08/22 21:15 63 14 142/87 97 11/08/22 21:12 60 18 160/81 97 11/08/22 21:11 62 14 142/87 97 11/08/22 21:02 61 18 142/87 96 11/08/22 20:55 60 18 175/71 98 11/08/22 20:43 97.7 F 60 18 150/96 98 Intake and Output 11/08/22 11/09/22 11/09/22 22:59 06:59 14:59 Intake Total 50 Output Total 480 200 Balance -430 -200 Intake: IV 50 0.9% 50 Output: Urine 480 200 Other: Voiding Method External Catheter External Catheter # Voids 0 Weight 77.4 kg 78.3 kg Patient is an elderly female, very pleasant, in no acute distress. Patient is alert awake oriented to time place and person. Patient states this is November and the year is 2002. Patient knows that she is in the hospital but does not know the name. She knows that she is in [place] and that she lives in [place] in [place]. Speech and language functions are normal. Patient can name and repeat very well. She has slight word hesitancy, sometimes word finding problem, which is new. No aphasia or dysarthria. Attention, concentration and fund of knowledge is adequate. Detail cognitive function te sting deferred. On cranial nerve examination, pupils are equal, round and reacting to light, visual wing are full on confrontation, however she clearly neglects the right visual field on double simultaneous stimulation. Extraocular muscles are intact with no nystagmus. Face is symmetric, tongue protrudes to the midline. Palatal elevation and sensation normal, hearing and shoulder shrug normal, facial sensation normal. On muscle strength testing, there is no pronator drift and the strength is normal in arms and legs distally and proximally. Deep tendon reflexes are symmetric 1+ in the arms and legs and plantars downgoing. Sensory to touch is equal with no neglect on double simultaneous stimulation. Cerebellar function showed no ataxia for [id number] testing. No dysdiadoch okinesia. No ataxia for [id number] testing on either side. Tone and bulk of muscles normal. Gait deferred.. On general examination, there is no carotid bruit or murmur, S1-S2 audible. Chest is clear on consultation. Abdomen is soft nontender. No organomegaly, bowel sounds present. Peripheral pulses are present. No edema. Results - Laboratory Findings CBC and BMP: 11/09/22 04:17 11/09/22 04:17 Abnormal Lab Findings: Abnormal Labs 11/08/22 11/08/22 11/09/22 20:47 21:00 04:17 WBC Neutrophils # BUN 20 H 20 H Creatinine 1.09 H Urine Appearance Turbid H Urine Protein Trace H Urine Blood Trace H Urine Nitrite Positive H Ur Leukocyte Esterase Large H Urine RBC 18 H Urine WBC >182 H Urine WBC Clumps Few H Ur Squamous Epith Cells 37 H Urine Bacteria Many H Urine Mucus Rare H 11/09/22 04:17 WBC 11.1 H Neutrophils # 8.6 H BUN Creatinine Urine Appearance Urine Protein Urine Blood Urine Nitrite Ur Leukocyte Esterase Urine RBC Urine WBC Urine WBC Clumps Ur Squamous Epith Cells Urine Bacteria Urine Mucus Assessment and Plan Assessment: * Probable acute ischemic stroke, manifesting with expressive aphasia, and right visual field neglect. Event appears embolic in nature. Rule out cardiac source. * History of CVA left frontal region noted on current CT head (clinically asymptomatic). * Acute UTI, patient on Augmentin. * Mild renal insufficiency * Right frontal lobe meningioma 2.2 cm, probable incidental. * History of right hip fracture January 2022. Plan: * MRI of the brain with and without contrast, evaluate for acute CVA and also to follow up on the meningioma. * 2-D echo with bubble study to rule out PFO * CTA head and neck showed: No significant stenosis in the common or internal carotid arteries bilaterally. No large vessel occlusion or aneurysm at the level of [place]. Incidental 2.2 cm anterior right frontal lobe meningioma noted. * Fasting a.m. lipid panel cholesterol 161, LDL 87, HDL 53, triglycerides 96. Continue pravastatin 40 mg daily. * Hemoglobin A1c * Permissive hypertension for next 24-48 hours. Keep blood pressure < 180/100 * EEG evaluate for epileptiform activity given history of previous CVA, and right frontal meningioma. * Close neuro checks as per protocol. * No antiplatelets or anticoagulants for 24 hours. * Telemetry monitoring rule out any arrhythmia * PT, OT, speech therapy. * DVT prophylaxis: SCDs. * Neurology will continue ot follow. Thank you for the consult.
--- NOTE | 2022-11-09 18:14 | CA ---
Transthoracic Echo Report Name: Mirna Dillon Age: 87 Gender: F : 1935 Exam Date: 11/09/2022 11:47 Exam Location: [facility] Ht (in): 64 Wt (lb): 172 Ordering Physician: Byron Suarez MD Attending/Referring Phys: Radio Adjuster Procedure CPT: Indications: post CVA Cardiac Hx: Technical Quality: Fair Contrast 1: Total Dose (mL): Contrast 2: Total Dose (mL): MEASUREMENTS (Male / Female) Normal Values 2D ECHO LV Diastolic Diameter PLAX 4.3 cm 4.2 - 5.9 / 3.9 - 5.3 cm LV Systolic Diameter PLAX 3.0 cm IVS Diastolic Thickness 1.0 cm 0.6 - 1.0 / 0.6 - 0.9 cm LVPW Diastolic Thickness 1.0 cm 0.6 - 1.0 / 0.6 - 0.9 cm LV Relative Wall Thickness 0.5 RV Internal Dim ED PLAX 2.3 cm LVOT Diameter 1.8 cm Aortic Root Diameter 2.5 cm LA Systolic Diameter LX 2.5 cm 3.0 - 4.0 / 2.7 - 3.8 cm LV Diastolic Volume MOD BP 35.4 cm??? 67 - 155 / 56 - 104 cm??? LV Systolic Volume MOD BP 16.0 cm??? 22 - 58 / 19 - 49 cm??? LV Ejection Fraction MOD BP 54.9 % >= 55 % LV Cardiac Index MOD BP 685.4 cm???/min???m??? LV Diastolic Volume MOD 4C 40.2 cm??? LV Systolic Volume MOD 4C 22.6 cm??? LV Ejection Fraction MOD 4C 43.8 % LV Cardiac Index MOD 4C 619.8 cm???/min???m??? LV Diastolic Length 4C 5.8 cm LV Systolic Length 4C 5.5 cm LV Diastolic Volume MOD 2C 29.5 cm??? LV Systolic Volume MOD 2C 9.8 cm??? LV Ejection Fraction MOD 2C 66.8 % LV Cardiac Index MOD 2C 694.4 cm???/min???m??? LV Diastolic Length 2C 5.5 cm LV Systolic Length 2C 4.6 cm LA Volume 29.8 cm??? 18 - 58 / 22 - 52 cm??? LA Volume Index 15.7 cm???/m??? 16 - 28 cm???/m??? DOPPLER AV Peak Velocity 127.6 cm/s AV Peak Gradient 6.5 mmHg LVOT Peak Velocity 108.8 cm/s LVOT Peak Gradient 4.7 mmHg LVOT Velocity Time Integral 26.9 cm LVOT Stroke Volume 67.5 cm??? LVOT Stroke Volume Index 36.8 ml/m??? LVOT Cardiac Index 2380.0 cm???/min???m??? AV Area Cont Eq pk 2.1 cm??? MV Peak Velocity 108.2 cm/s MV Peak Gradient 4.7 mmHg MV Mean Velocity 53.5 cm/s MV Mean Gradient 1.4 mmHg MV Velocity Time Integral 40.8 cm Mitral E Point Velocity 89.1 cm/s Mitral A Point Velocity 105.8 cm/s Mitral E to A Ratio 0.8 MV Deceleration Time 245.5 ms MV E' Velocity 5.8 cm/s Mitral E to MV E' Ratio 15.3 FINDINGS Left Ventricle Normal LV size and wll thickness. Left ventricular ejection fraction is estimated at 50-55 %. Right Ventricle Normal right ventricular size. Right Atrium Normal right atrial size. Left Atrium Normal left atrial size. Negative bubble study. Mitral Valve Mild posterior MAC. Mild MR. Aortic Valve Trileaflet aortic valve. No aortic valve stenosis or regurgitation. Tricuspid Valve Tricuspid valve not well visualized. Trace TR. Pulmonic Valve Pulmonic valve not well visualized. No pulmonic regurgitation. Pericardium Normal pericardium. Aorta Normal size aortic root. CONCLUSIONS Negative agitated saline study. Normal LV function Previewed by: Dr. Quentin Hansen MD (Electronically Signed) Final Date: 09 November 2022 18:13
[2022-11-09] MEDS: PRAVASTATIN SODIUM 40 MG TAB PO SCH (20:51)
[2022-11-09] MEDS: bisacodyL 5 MG TABLET.DR PO SCH (20:52)
--- NOTE | 2022-11-09 21:05 | EEG ---
DATE OF SERVICE: 11/09/2022 ELECTROENCEPHALOGRAM REPORT PREAMBLE: This is an 87-year-old female, who presented with acute onset of aphasia, received tPA. The patient also has history of right frontal meningioma diagnosed incidentally. This study is performed to evaluate for any epileptiform activity. EEG FINDINGS: This is a 21-channel digital EEG recorded with video component, utilizing 10/20 international system with referential and bipolar montages. Background consists of well developed, well regulated moderate voltage activity in 9 hertz alpha. Background is posterior dominant and reactive to eye opening and closing. There is very frequent, near constant focal slowing in dysrhythmic theta and delta range seen in the left temporal region. Mild drowsiness was seen with appearance of bilaterally symmetric theta frequency rhythm. Deeper stages of sleep were not seen. Photic driving response was not seen. No definitive focal or generalized epileptiform activity was seen. EKG channel showed no obvious arrhythmia. IMPRESSION: This is an abnormal EEG due to near constant focal slowing in dysrhythmic delta and theta range in the left temporal region. This is suggestive of focal cortical neuronal dysfunction, may suggest underlying structural abnormality. Clinical correlation is recommended. No clear-cut epileptiform activity was seen. If your suspicion for seizure is high, suggest prolonged, sleep-deprived EEG. MMODL / IJN: [id number] / [facility] HOSPITALKelechi
--- NOTE | 2022-11-09 21:53 | CT ---
EXAMINATION TYPE: CT brain wo con CT DLP: 1139.4 mGycm, Automated exposure control for dose reduction was used. DATE OF EXAM: 11/09/2022 9:25 PM COMPARISON: Prior CT Brain from 11/08/2022. CLINICAL INDICATION:Female, 87 years old with history of Neuro deficit, acute, stroke suspected, Pt w as a code stroke yesterday, this is a f/u scan for 24hrs post TPA. TECHNIQUE: Brain: Multiple axial CT images of the brain were obtained without IV contrast. Coronal and sagittal reformats reviewed. FINDINGS: Brain: Extra-axial spaces: No abnormal extra-axial fluid collections. Right frontal lobe extra-axial 2.1 cm meningioma redemonstrated. Ventricular system: Within normal limits Cerebral parenchyma: No acute intraparenchymal hemorrhage or mass effect. Encephalomalacia within the left frontal lobe consistent with remote injury. The heck-white junction is well differentiated. Sca ttered hypoattenuating areas are seen within the white matter. Cerebellum: Unremarkable. Mass effect: No evidence of midline shift. Intracranial vasculature: Atherosclerotic calcifications of the intracranial vessels. Soft tissues: Normal. Calvarium/osseous structures: No depressed skull fracture. Benign hyperostosis frontalis noted. Paranasal sinuses and mastoid air cells: Clear Visualized orbits: Bilateral aphakia. Scleral calcifications bilaterally IMPRESSION: 1. No acute intracranial process. No evidence for intraparenchymal hemorrhage. 2. Remote left frontal lobe ischemic injury redemonstrated. 3. Nonspecific white matter changes, likely secondary to chronic small vessel ischemic disease. 4. Right frontal lobe benign meningioma redemonstrated.
[2022-11-10 04:55] LABS: Basophils % (A) 0 %; Eosinophils # (A) 0.4 k/uL (0-0.7); Eosinophils % (A) 5 %; HCT 37.1 % (34.0-46.0); HGB 12.4 gm/dL (11.4-16.0); Lymphocytes # (A) 1.5 k/uL (1.0-4.8); Lymphocytes % (A) 17 %; MCH 30.9 pg (25.0-35.0); MCHC 33.3 g/dL (31.0-37.0); MCV 92.7 fL (80.0-100.0); Mean Platelet Volume 8.4; Monocytes # (A) 0.6 k/uL (0-1.0); Monocytes % (A) 7 %; Neutrophils % (A) 69 %; Platelet Count 188 k/uL (150-450); RDW 13.2 % (11.5-15.5); WBC 8.7 k/uL (3.8-10.6)
[2022-11-10 05:16] LABS: ALT 16 U/L (4-34); AST 22 U/L (14-36); African American GFR (CKD) 73 (>60 ml/min/1.73 sqM); Albumin 3.8 g/dL (3.5-5.0); Alkaline Phosphatase 56 U/L (38-126); Anion Gap 10 mmol/L; Blood Urea Nitrogen 13 mg/dL (7-17); Calcium 9.2 mg/dL (8.4-10.2); Carbon Dioxide 25 mmol/L (22-30); Chloride 103 mmol/L (98-107); Glucose 100 mg/dL (74-99); Non-African American GFR(CKD) 64 (>60 ml/min/1.73 sqM); Sodium 138 mmol/L (137-145); Total Bilirubin 0.5 mg/dL (0.2-1.3); Total Protein 6.6 g/dL (6.3-8.2)
[2022-11-10] MEDS: LEVOTHYROXINE 75 MCG TAB PO SCH (06:26)
--- NOTE | 2022-11-10 08:24 | P.PN ---
Subjective Progress Note Date: 11/10/22 I am seeing this patient in consultation today 11/09/2022 in the intensive care unit following TPA administration in the ER for CVA-like symptoms. Patient is an 87-year-old female past medical history significant for hypertension, hyperlipidemia, GERD. Patient was lying in bed. Her left the house for about 10 minutes. When he came back, the patient was found on the floor at the foot of the bed. She was aphasic. He called EMS. Last known well was approximately 1930. NIH was scored at 4 in the emergency room. There were no identified contraindications to TPA. Nonenhanced brain CT showed no acute intracranial hemorrhage or midline shift. 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 There was mild-moderate age-related cerebral atrophy and moderate chronic small vessel ischemic changes. Brain CTA did not show any significant stenosis, occlusions, aneurysms. There was a 2.2 cm anterior right frontal lobe meningioma. Neuro-interventionalist recommended fibrinolytics. Patient is currently in the intensive care unit, on room air, in no acute distress. According to her , who is at bedside, her expressive dysphasia has significantly improved post TPA. She is able to speak in full sentences, occasionally cannot find the appropriate words. No other deficits noted. CBC on arrival is unremarkable. CMP on arrival was also unremarkable. ECG shows normal sinus rhythm without any acute ischemic changes. Urinalysis, shows nitrates and leukocytes and many bacteria. When asked, she has no urinary complaints. Likely asymptomatic bacteriuria. Afebrile. Patient is being monitored in the intensive care unit at least overnight. On today's evaluation of 11/10/2022, the patient is doing well no headaches. No focal neurological deficit. Some limited difficulties in finding the right words. For the most part, her speech is adequate. A follow-up CAT scan of the brain was done and it shows no evidence of any bleeding. There is evidence of a remote left frontal lobe ischemic injury noted along with some chronic nonspecific white matter changes likely secondary to chronic vascular ischemia. The patient is afebrile. White cell count of 8.7. She was suspected to have a UTI and for that reason she was started on Augmentin. She has previous UTI with gram-negative and enterococcus. Is currently on room air oxygen. No headache. No altered mentation. Objective - Vital Signs Vital signs: Vital Signs Temp 97.6 F 10/05/23 04:00 Pulse 63 11/10/22 07:00 Resp 16 11/10/22 07:00 BP 124/57 11/10/22 07:00 Pulse Ox 96 11/10/22 07:58 FiO2 Intake & Output 11/09/22 11/10/22 11/10/22 18:59 06:59 18:59 Output Total 600 350 Balance -600 -350 Weight 76 kg Output: Urine 600 350 Other: Voiding Method Bedside Commode External Catheter # Voids 1 0 0 # Bowel Movements 1 - Exam GENERAL EXAM: Alert, 79-year-old white female appearing stated age, comfortable in no apparent distress. HEAD: Normocephalic and atraumatic EYES: Normal reaction of pupils, equal size. NOSE: Clear with pink turbinates. THROAT: No erythema or exudates. NECK: No masses, no JVD. CHEST: No chest wall deformity. LUNGS: Equal air entry with no crackles, wheeze, rhonchi or dullness. No conversational dyspnea or accessory muscle use.. CVS: S1 and S2 normal with no audible murmur, regular rhythm. No extra heart sounds ABDOMEN: No hepatosplenomegaly, active bowel sounds, no guarding or rigidity. SPINE: No scoliosis or deformity SKIN: No rashes CENTRAL NERVOUS SYSTEM: Patient is alert and oriented. No unilateral facial weakness/droop. Vision is intact. Extraocular movement intact. No nystagmus. There is still some residual expressive dysphasia. Tongue is midline. Shoulder shrug equal and normal bilaterally. Extremity strength 5/5 throughout. Sensation intact. No ataxia. Deep tendon reflexes 1-2+ throughout. No neglect. EXTREMITIES: There is no peripheral edema, clubbing, or cyanosis. Peripheral pulses are intact. - Labs CBC & Chem 7: 11/10/22 04:26 11/10/22 04:21 Labs: Abnormal Lab Results - Last 24 Hours (Table) 11/10/22 Range/Units 04:21 Glucose 100 H (74-99) mg/dL Assessment and Plan Assessment: Suspect acute ischemic CVA status post TPA infusion. Patient still has some residual expressive aphasia, otherwise, no other residual deficits. Nonenhanced brain CT showed no acute intracranial hemorrhage or midline shift. 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 There was mild- moderate age-related cerebral atrophy and moderate chronic small vessel ischemic changes. Brain CTA did not show any large vessel significant stenosis, occlusions, or aneurysms. There was a 2.2 cm anterior right frontal lobe meningioma. Hyperlipidemia Benign essential hypertension Asymptomatic bacteriuria Hypothyroidism GERD Never smoker Plan: Patient is post thrombolytics. Follow-up CAT scan was negative. We should be able to start on aspirin. This will be confirmed with neurology. Neurologically stable. Follow-up CAT scan of the brain was noted. The patient is currently on statins and she is taking pravastatin 40 mg by mouth daily Increase mobility Provide diet Continue Augmentin Cardiac rhythm is sinus Echo of the heart was completed yesterday and the findings showed a preserved LV function with an ejection fraction of 50-55%. Normal valvular function. The patient should be able to transfer to a medical surgical floor. Remote tele.
[2022-11-10] MEDS: AMOXIC-POT CLAV 875-125MG 1 EACH TAB PO SCH ×2 (09:53→19:55)
[2022-11-10] MEDS: ASCORBIC ACID 500 MG TAB PO SCH (09:53)
[2022-11-10] MEDS: ESCITALOPRAM 10 MG TAB PO SCH (09:53)
[2022-11-10] MEDS: ASPIRIN 325 MG TAB PO SCH (10:37)
--- NOTE | 2022-11-10 12:41 | P.PN ---
Subjective Progress Note Date: 11/10/22 Patient was seen for a follow-up. Patient is sitting comfortably in the recliner. Patient states that she is much better. She is still slight problem with word finding "once in a while". 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 Patient says that she used to take aspirin 81 mg every day. Patient says that she is working on the puzzles on her cell phone to help her regain memory and neurological functions. Objective - Vital Signs Vital signs: Vital Signs Temp 97.6 F 11/10/22 04:00 Pulse 68 11/10/22 12:00 Resp 16 11/10/22 12:00 BP 131/65 11/10/22 10:00 Pulse Ox 96 11/10/22 12:00 FiO2 Intake & Output 11/09/22 11/10/22 11/10/22 18:59 06:59 18:59 Intake Total 200 Output Total 600 350 Balance -600 -350 200 Weight 76 kg Intake: Oral 200 Output: Urine 600 350 Other: Voiding Method Bedside Commode External Catheter # Voids 1 0 1 # Bowel Movements 1 - Exam Patient's mental status, speech and language functions are normal. Patient can name and repeat very well. Her word hesitancy has much improved. Occasional word finding problem. Patient is fully oriented. On cranial nerve examination, pupils are equal, round and reacting. Visual wing are full on confrontation, with no neglect on double simultaneous stimulation. Extraocular muscles intact, face is symmetric and tongue protrudes the midline. On muscle strength testing there is no pronator drift and the strength is normal in arms and legs. Sensory to touch is equal. No ataxia for [id number] testing. - Labs CBC & Chem 7: 11/10/22 04:26 11/10/22 04:21 Labs: Abnormal Lab Results - Last 24 Hours (Table) 11/10/22 Range/Units 04:21 Glucose 100 H (74-99) mg/dL Assessment and Plan Assessment: * Probable acute ischemic stroke, manifesting with expressive aphasia, and right visual field neglect. Event appears embolic in nature. Rule out cardiac s ource. Patient's current NIH stroke scale is 0. 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 * Acute UTI, patient on Augmentin. * Mild renal insufficiency * Right frontal lobe meningioma 2.2 cm, probable incidental. * History of right hip fracture January 2022. Plan: * Await MRI of the brain with and without contrast, evaluate for acute CVA and also to follow up on the meningioma. * 2-D echo revealed negative agitated saline study. Normal left atrial size. Normal left ventricular systolic function, with EF 50-55%. No embolic source. * CTA head and neck showed: No significant stenosis in the common or internal carotid arteries bilaterally. No large vessel occlusion or aneurysm at the level of [place]. Incidental 2.2 cm anterior right frontal lobe meningioma noted. * Fasting a.m. lipid panel cholesterol 161, LDL 87, HDL 53, triglycerides 96. Continue pravastatin 40 mg daily. * Hemoglobin A1c * B12 2644 on 06/23/2022, TSH normal. * Optimize control of blood pressure to normotensive level. * EEG was performed, which was abnormal due to near constant focal slowing and dysrhythmic delta and theta range in the left temporal region. This is suggestive of focal cortical neuronal dysfunction, may suggest underlying structural abnormality. Clinical correlation is recommended. No clear-cut epileptiform activity was seen. If the suspicion for seizures is high, suggest prolonged, sleep deprived EEG. * Neuro checks every 4 hours. * Repeat CT head was negative for any bleed. Start aspirin 325 mg daily.. * Telemetry monitoring rule out any arrhythmia * Recommend stopping HRT, due to recent stroke/TIA. * PT, OT, speech therapy. * DVT prophylaxis: Lovenox 40 mg subcu daily.
[2022-11-10] MEDS ORDERED: ENOXAPARIN 40 MG/0.4 ML SYRINGE SQ SCH (12:45)
--- NOTE | 2022-11-10 16:23 | P.PN ---
Subjective Progress Note Date: 11/10/22 Mirna Dillon is a 87 year old female patient who presented to the ER with concerns of aphasia and strokelike symptoms. Patient's was home and left for 10 minutes and came back on patient on the floor and is able to communicate. Patient denies loss of consciousness. Patient has past medical history of hypertension, hyperlipidemia, GERD. Head CT was performed showing no acute intracranial hemorrhage midline shift or is mild to moderate diffuse age-related cerebral atrophy and moderate chronic small vessel ischemic change redemonstrated. There is a left frontal lobe infarct anterior watershed region are currently studying from prior study. CTA completed showing no significant stenosis in common or intercarotid arteries bilaterally no large vessel occlusion or aneurysm at the level of the [place] incidental 2.2 cm anterior right frontal lobe meningioma noted. Chest x-ray completed showing mild cardiomegaly without suspicious new acute pulmonary process. Sinus rhythm with first-degree AV block with occasional supraventricular premature complexes. Stroke protocol was initiated in the ER and patient did qualify for fibrinolytics. TPA was administered symptoms significantly improved post TPA. Patient was able to speak full sentences post TPA UA positive for urinary tract infection urine culture has been ordered. Patient has been admitted to the intensive care unit per stroke protocol post TPA protocol. Critical care neurology services have been consulted repeat computed tomography scan has been ordered. Vital signs include temperature 98.3, heart rate 64, respiratory rate 17, blood pressure 128/49 with a pulse ox of 95% on room air. On 11/10/2022 patient was seen and examined in the ICU she is alert and oriented 3 in no apparent distress, speech is better than yesterday, she is still occasionally having difficulty finding words, otherwise she denies any complaints there is no fever or chills no headache or dizziness no chest pain no shortness of breath no cough no nausea or vomiting no abdominal pain no diarrhea and no urinary symptoms, at this time we are still awaiting MRI of the brain, and further input from neurology. Objective - Vital Signs Vital signs: Vital Signs Temp 97.6 F 11/10/22 04:00 Pulse 68 11/10/22 12:00 Resp 16 11/10/22 12:00 BP 131/65 11/10/22 10:00 Pulse Ox 96 11/10/22 12:00 FiO2 Intake & Output 11/09/22 11/10/22 11/10/22 18:59 06:59 18:59 Intake Total 200 Output Total 600 350 Balance -600 -350 200 Weight 76 kg Intake: Oral 200 Output: Urine 600 350 Other: Voiding Method Bedside Commode External Catheter # Voids 1 0 1 # Bowel Movements 1 - Exam Head normocephalic an atraumatic Neck supple Lungs clear to auscultation bilaterally no wheezing or crackles Heart regular rate and rhythm S1-S2, no rub or gallop Abdomen is soft nontender nondistended positive bowel sounds no hepatosplenomegaly Extremities no edema Neuro alert and orientated to 3, aphasia, no weakness or numbness in extremities - Labs CBC & Chem 7: 11/10/22 04:26 11/10/22 04:21 Labs: Abnormal Lab Results - Last 24 Hours (Table) 11/10/22 Range/Units 04:21 Glucose 100 H (74-99) mg/dL Assessment and Plan Assessment: 1. 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 Symptoms improved post TPA 2. Incidental finding of right frontal lobe meningioma. Neurology services consulted 3. Urinary tract infection she was started on Augmentin urine culture ordered 4. History of hyperlipidemia 5. Essential hypertension 6. Hypothyroidism 7. History of GERD 8. Right hip replacement in January 2022 Patient has been admitted to the intensive care unit post TPA Neurology critical care service is following 2-D echo ordered Repeat head CT ordered Urine culture ordered PT OT and speech services consulted Repeat labs ordered
[2022-11-10 18:25] VITALS: RESP 16
[2022-11-10] MEDS: bisacodyL 5 MG TABLET.DR PO SCH (19:55)
[2022-11-10] MEDS: PRAVASTATIN SODIUM 40 MG TAB PO SCH (19:55)
[2022-11-10] MEDS: METOPROLOL TARTRATE 25 MG TAB PO SCH (21:12)
[2022-11-10] MEDS: ENOXAPARIN 80 MG/0.8 ML SYRINGE SQ SCH (21:29)
[2022-11-10] MEDS: TEMAZEPAM 15 MG CAP PO PRN (22:16)
[2022-11-11] MEDS: LEVOTHYROXINE 75 MCG TAB PO SCH (05:30)
[2022-11-11] MEDS: ASCORBIC ACID 500 MG TAB PO SCH (07:48)
[2022-11-11] MEDS: ASPIRIN 325 MG TAB PO SCH (07:48)
[2022-11-11] MEDS: METOPROLOL TARTRATE 25 MG TAB PO SCH ×2 (07:48→20:03)
[2022-11-11] MEDS: ESCITALOPRAM 10 MG TAB PO SCH (07:48)
[2022-11-11] MEDS: ENOXAPARIN 80 MG/0.8 ML SYRINGE SQ SCH (07:49)
[2022-11-11] MEDS: AMOXIC-POT CLAV 875-125MG 1 EACH TAB PO SCH ×2 (07:52→20:03)
[2022-11-11 07:56] LABS: ALT 16 U/L (4-34); AST 24 U/L (14-36); African American GFR (CKD) 63 (>60 ml/min/1.73 sqM); Albumin 3.9 g/dL (3.5-5.0); Alkaline Phosphatase 57 U/L (38-126); Anion Gap 11 mmol/L; Blood Urea Nitrogen 16 mg/dL (7-17); Calcium 9.4 mg/dL (8.4-10.2); Carbon Dioxide 24 mmol/L (22-30); Chloride 102 mmol/L (98-107); Glucose 99 mg/dL (74-99); Non-African American GFR(CKD) 54 (>60 ml/min/1.73 sqM); Sodium 137 mmol/L (137-145); Total Bilirubin 0.6 mg/dL (0.2-1.3); Total Protein 6.8 g/dL (6.3-8.2)
[2022-11-11 08:18] LABS: Basophils % (A) 0 %; Eosinophils # (A) 0.4 k/uL (0-0.7); Eosinophils % (A) 4 %; HCT 39.6 % (34.0-46.0); HGB 13.4 gm/dL (11.4-16.0); Lymphocytes # (A) 1.7 k/uL (1.0-4.8); Lymphocytes % (A) 17 %; MCH 31.7 pg (25.0-35.0); MCHC 33.8 g/dL (31.0-37.0); Mean Platelet Volume 8.3; Monocytes # (A) 0.7 k/uL (0-1.0); Monocytes % (A) 7 %; Neutrophils % (A) 70 %; Platelet Count 192 k/uL (150-450); RBC 4.22 m/uL (3.80-5.40); RDW 13.2 % (11.5-15.5)
--- NOTE | 2022-11-11 09:52 | P.PN ---
Subjective Progress Note Date: 11/11/22 Mirna Dillon is a 87 year old female patient who presented to the ER with concerns of aphasia and strokelike symptoms. Patient's was home and left for 10 minutes and came back on patient on the floor and is able to communicate. Patient denies loss of consciousness. Patient has past medical history of hypertension, hyperlipidemia, GERD. Head CT was performed showing no acute intracranial hemorrhage midline shift or is mild to moderate diffuse age-related cerebral atrophy and moderate chronic small vessel ischemic change redemonstrated. There is a left frontal lobe infarct anterior watershed region are currently studying from prior study. CTA completed showing no significant stenosis in common or intercarotid arteries bilaterally no large vessel occlusion or aneurysm at the level of the [place] incidental 2.2 cm anterior right frontal lobe meningioma noted. Chest x-ray completed showing mild cardiomegaly without suspicious new acute pulmonary process. Sinus rhythm with first-degree AV block with occasional supraventricular premature complexes. Stroke protocol was initiated in the ER and patient did qualify for fibrinolytics. TPA was administered symptoms significantly improved post TPA. Patient was able to speak full sentences post TPA UA positive for urinary tract infection urine culture has been ordered. Patient has been admitted to the intensive care unit per stroke protocol post TPA protocol. Critical care neurology services have been consulted repeat computed tomography scan has been ordered. Vital signs include temperature 98.3, heart rate 64, respiratory rate 17, blood pressure 128/49 with a pulse ox of 95% on room air. On 11/10/2022 patient was seen and examined in the ICU she is alert and oriented 3 in no apparent distress, speech is better than yesterday, she is still occasionally having difficulty finding words, otherwise she denies any complaints there is no fever or chills no headache or dizziness no chest pain no shortness of breath no cough no nausea or vomiting no abdominal pain no diarrhea and no urinary symptoms, at this time we are still awaiting MRI of the brain, and further input from neurology. On 11/11/2022 patient has been moved out of the intensive care unit currently selective care. Patient had episode of atrial flutter last night this is new for patient cardiology services were consulted in Lovenox increased to 1 mg/kg twice a day. MRI and EEG also ordered per neurology. Awaiting further recommendation from cardiology input in regards to home anticoagulation. Current vital signs temp 97.4, heart rate 66, respiratory rate 16, blood pressure 103/67 with a pulse ox of 96%. Speech has improved Objective - Vital Signs Vital signs: Vital Signs Temp 97.4 F L 11/11/22 07:38 Pulse 66 11/11/22 07:38 Resp 16 11/11/22 07:38 BP 103/67 11/11/22 07:38 Pulse Ox 95 11/11/22 09:25 FiO2 Intake & Output 11/10/22 11/11/22 11/11/22 18:59 06:59 18:59 Intake Total 318 200 Output Total 0 Balance 318 200 Weight 76 kg Intake: Oral 318 200 Output: Urine 0 Other: Voiding Method Bedside Commode Toilet Toilet # Voids 1 - Exam Head normocephalic an atraumatic Neck supple Lungs clear to auscultation bilaterally no wheezing or crackles Heart regular rate and rhythm S1-S2, no rub or gallop Abdomen is soft nontender nondistended positive bowel sounds no hepatosplenomegaly Extremities no edema Neuro alert and orientated to 3, aphasia, no weakness or numbness in extremities - Labs CBC & Chem 7: 11/11/22 06:54 11/11/22 06:54 Labs: Microbiology - Last 24 Hours (Table) 11/09/22 11:00 Urine Culture - Preliminary Urine,Clean Catch Gram Neg Bacilli Assessment and Plan Assessment: 1. 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 Symptoms improved post TPA 2. Incidental finding of right frontal lobe meningioma. Neurology services consulted 3. Urinary tract infection she was started on Augmentin urine culture ordered 4. History of hyperlipidemia 5. Essential hypertension 6. Hypothyroidism 7. History of GERD 8. Right hip replacement in January 2022 9. New onset atrial flutter/A. fib. Cardiac he services consulted Lovenox increased to 1 mg/kg twice a day Patient has been admitted to the intensive care unit post TPA Neurology critical care service is following Cardiology services consulted MRI ordered per neurology PT OT and speech services consulted Repeat labs ordered
[2022-11-11] MEDS ORDERED: SODIUM CHLORIDE 0.9% 250 ML IV ONE (11:15)
--- NOTE | 2022-11-11 11:21 | P.CRDCN ---
History of Present Illness History of present illness: HISTORY OF PRESENT ILLNESS: This is a 87-year-old female with a past medical history significant for hypertension, hyperlipidemia, hypothyroidism, and GERD. Patient follows in the office with Dr. Celaya. We have been asked to see the patient in consultation for new onset atrial fibrillation. Patient examined at the bedside. Patient presented to the hospital with a chief complaint of expressive aphasia. Patient denied having any weakness. She denies having vision issues although neurology has noted the patient had right visual field neglect. Patient underwent computed tomography scan revealing evidence of old CVA involving the right frontal region. She is scheduled to undergo MRI today. Patient developed atrial fibrillation with RVR yesterday evening. She does report having palpitations at that time. Telemetry this morning reveals sinus mechanism. Patient denies any chest pain or pressure. She denies any shortness of breath. She is currently on full dose aspirin per neurology. * EKG reveals A. fib with RVR * Chest xray mild cardiomegaly without suspicious new acute pulmonary process * Current home cardiac medications include pravastatin 40 mg daily, metoprolol tartrate 25 mg twice a day * Echocardiogram completed revealing ejection fraction 50-55%, mild MR, trace TR. Negative bubble study. REVIEW OF SYSTEMS: At the time of my exam: CONSTITUTIONAL: Denies fever or chills. HEENT: Denies blurred vision, vision changes, or eye pain. Denies hemoptysis CARDIOVASCULAR: Denies chest pain. Denies orthopnea. Denies PND. Denies palpitations RESPIRATORY: Denies shortness of breath. GASTROINTESTINAL: Denies abdominal pain. Denies nausea or vomiting. HEMATOLOGIC: Denies bleeding disorders. GENITOURINARY: Denies any blood in urine. SKIN: Denies pruitis. Denies rash. PHYSICAL EXAM: VITAL SIGNS: Reviewed. GENERAL: Well-developed in no acute distress. HEENT: Head is normocephalic. Pupils are equal, round. Sclerae anicteric. Mucous membranes of the mouth are moist. Neck supple. No JVD or thyromegaly LUNGS: Respirations even and unlabored. Lungs essentially clear to auscultation bilaterally. HEART: Regular rate and rhythm. S1 and S2 heard. ABDOMEN: Soft. Nondistended. Nontender. EXTREMITIES: Normal range of motion. No clubbing or cyanosis. Peripheral pulses intact. No lower extremity edema NEUROLOGIC: Awake and alert. Oriented x 3. ASSESSMENT: Expressive aphasia, suspected CVA, status post TPA administration New onset paroxysmal atrial fibrillation with RVR Old CVA involving right frontal region, per computed tomography scan Urinary tract infection Hypertension Hyperlipidemia Hypothyroidism GERD PLAN: Continue telemetry monitoring Check TSH Begin metoprolol tartrate 25 mg twice a day Case discussed with neurology. Will hold off on initiating anticoagulation until MRI is resulted. Discontinue therapeutic Lovenox that was started by Dr. Hermosillo. Further recommendations pending patient course Nurse practitioner note has been reviewed by physician. Signing provider agrees with the documented findings, assessment, and plan of care. Past Medical History Past Medical History: GERD/Reflux, Hyperlipidemia, Hypertension History of Any Multi-Drug Resistant Organisms: None Reported Past Surgical History: Appendectomy, Breast Surgery, Section, Hysterectomy, Joint Replacement Past Anesthesia/Blood Transfusion Reactions: No Reported Reaction Past Psychological History: No Psychological Hx Reported Smoking Status: Never smoker Past Alcohol Use History: None Reported Past Drug Use History: None Reported Medications and Allergies Home Medications Medication Instructions Recorded Confirmed Type Alendronate Sodium [Fosamax] 70 mg PO Q7D 01/15/22 11/09/22 History Escitalopram [Lexapro] 10 mg PO DAILY 01/15/22 11/09/22 History Metoprolol Tartrate [Lopressor] 25 mg PO BID 01/15/22 11/09/22 History Pravastatin Sodium [Pravachol] 40 mg PO DAILY 01/15/22 11/09/22 History Temazepam [Restoril] 15 mg PO HS PRN 01/15/22 11/09/22 History Estradiol Cream [Estrace Cream 1 gm VAGINAL DIRECTED 11/09/22 11/09/22 History 0.01%] Fluticasone Nasal Delta [Flonase 1 spr EA NOSTRIL DAILY 11/09/22 11/09/22 Hi story Nasal Delta] Levothyroxine Sodium [Synthroid] 75 mcg PO DAILY 11/09/22 11/09/22 History Omeprazole 20 mg PO DAILY 11/09/22 11/09/22 History Potassium Chloride ER [K-Dur 20] 20 meq PO DAILY 11/09/22 11/09/22 History Allergies Allergy/AdvReac Type Severity Reaction Status Date / Time ciprofloxacin [From Cipro] Allergy Rash/Hives Verified 11/08/22 22:11 on entire body Physical Exam Vitals: Vital Signs Temp Pulse Pulse Resp BP BP Pulse Ox 11/11/22 07:38 97.4 F L 66 16 103/67 96 11/11/22 03:35 97.6 F 63 63 16 122/74 122/74 95 11/10/22 23:46 98.0 F 107 H 16 119/76 97 11/10/22 20:00 98.5 F 74 16 131/78 97 11/10/22 18:19 99.1 F 69 16 150/77 98 11/10/22 16:00 98.0 F 71 14 137/75 96 11/10/22 14:00 75 11 L 11/10/22 12:00 68 16 96 11/10/22 10:00 86 22 131/65 96 11/10/22 09:00 77 18 139/56 95 Intake and Output 11/10/22 11/11/22 11/11/22 22:59 06:59 14:59 Intake Total 118 200 Balance 118 200 Intake: Oral 118 200 Other: Voiding Method Toilet Toilet Toilet Weight 76 kg Results 11/11/22 06:54 11/11/22 06:54 Cardiac Enzymes 11/11/22 Range/Units 06:54 AST 24 (14-36) U/L CBC 11/11/22 Range/Units 06:54 WBC 10.0 (3.8-10.6) k/uL RBC 4.22 (3.80-5.40) m/uL Hgb 13.4 (11.4-16.0) gm/dL Hct 39.6 (34.0-46.0) % Plt Count 192 (150-450) k/uL Comprehensive Metabolic Panel 11/11/22 Range/Units 06:54 Sodium 137 (137-145) mmol/L Potassium 4.0 (3.5-5.1) mmol/L Chloride 102 (98-107) mmol/L Carbon Dioxide 24 (22-30) mmol/L BUN 16 (7-17) mg/dL Creatinine 0.94 (0.52-1.04) mg/dL Glucose 99 (74-99) mg/dL Calcium 9.4 (8.4-10.2) mg/dL AST 24 (14-36) U/L ALT 16 (4-34) U/L Alkaline Phosphatase 57 (38-126) U/L Total Protein 6.8 (6.3-8.2) g/dL Albumin 3.9 (3.5-5.0) g/dL Current Medications Generic Name Dose Route Start Last Admin Trade Name Jesusq PRN Reason Stop Dose Admin Amoxicillin/Clavulanate Potassium 1 each 11/09/22 09:30 11/11/22 07:52 Amoxic-Pot Clav 875-125mg 1 Each Tab PO 1 each Q12HR REBECA Administration Protocol Ascorbic Acid 1,000 mg 11/09/22 09:30 11/11/22 07:48 Ascorbic Acid 500 Mg Tab PO 1,000 mg DAILY REBECA Administration Aspirin 325 mg 11/10/22 10:15 11/11/22 07:48 Aspirin 325 Mg Tab PO 325 mg DAILY REBECA Administration Bisacodyl 10 mg 11/09/22 21:00 11/10/22 19:55 Bisacodyl 5 Mg Tablet.Dr PO 10 mg HS REBECA Administration Enoxaparin Sodium 80 mg 11/10/22 21:15 11/11/22 07:49 Enoxaparin 80 Mg/0.8 Ml Syringe SQ 80 mg Q12HR REBECA Administration Escitalopram Oxalate 10 mg 11/09/22 09:30 11/11/22 07:48 Escitalopram 10 Mg Tab PO 10 mg DAILY REBECA Administration Levothyroxine Sodium 75 mcg 11/10/22 06:30 11/11/22 05:30 Levothyroxine 75 Mcg Tab PO 75 mcg DAILY@0630 REBECA Administration Metoprolol Tartrate 25 mg 11/10/22 21:15 11/11/22 07:48 Metoprolol Tartrate 25 Mg Tab PO 25 mg BID REBECA Administration Pravastatin Sodium 40 mg 11/09/22 21:00 11/10/22 19:55 Pravastatin Sodium 40 Mg Tab PO 40 mg HS REBECA Administration Temazepam 15 mg 11/10/22 15:50 11/10/22 22:16 Temazepam 15 Mg Cap PO 15 mg HS PRN Administration Insomnia Intake and Output 11/10/22 11/11/22 11/11/22 22:59 06:59 14:59 Intake Total 118 200 Balance 118 200 Intake: Oral 118 200 Other: Voiding Method Toilet Toilet Toilet Weight 76 kg 11/11/22 06:54 11/11/22 06:54
--- NOTE | 2022-11-11 13:11 | P.PN ---
Subjective Progress Note Date: 11/11/22 I am seeing this patient in consultation today 11/09/2022 in the intensive care unit following TPA administration in the ER for CVA-like symptoms. Patient is an 87-year-old female past medical history significant for hypertension, hyperlipidemia, GERD. Patient was lying in bed. Her left the house for about 10 minutes. When he came back, the patient was found on the floor at the foot of the bed. She was aphasic. He called EMS. Last known well was approximately 1930. NIH was scored at 4 in the emergency room. There were no identified contraindications to TPA. Nonenhanced brain CT showed no acute intracranial hemorrhage or midline shift. 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 There was mild-moderate age-related cerebral atrophy and moderate chronic small vessel ischemic changes. Brain CTA did not show any significant stenosis, occlusions, aneurysms. There was a 2.2 cm anterior right frontal lobe meningioma. Neuro-interventionalist recommended fibrinolytics. Patient is currently in the intensive care unit, on room air, in no acute distress. According to her , who is at bedside, her expressive dysphasia has significantly improved post TPA. She is able to speak in full sentences, occasionally cannot find the appropriate words. No other deficits noted. CBC on arrival is unremarkable. CMP on arrival was also unremarkable. ECG shows normal sinus rhythm without any acute ischemic changes. Urinalysis, shows nitrates and leukocytes and many bacteria. When asked, she has no urinary complaints. Likely asymptomatic bacteriuria. Afebrile. Patient is being monitored in the intensive care unit at least overnight. On today's evaluation of 11/10/2022, the patient is doing well no headaches. No focal neurological deficit. Some limited difficulties in finding the right words. For the most part, her speech is adequate. A follow-up CAT scan of the brain was done and it shows no evidence of any bleeding. There is evidence of a remote left frontal lobe ischemic injury noted along with some chronic nonspecific white matter changes likely secondary to chronic vascular ischemia. The patient is afebrile. White cell count of 8.7. She was suspected to have a UTI and for that reason she was started on Augmentin. She has previous UTI with gram-negative and enterococcus. Is currently on room air oxygen. No headache. No altered mentation. On 11/21/2022, the patient is clinically stable. Neurologic status is also stable. The patient was transferred out of the intensive care unit. Overnight, the patient went into A. fib RVR and she converted back into normal sinus rhythm. S1, the A. fib could've been the cause for her stroke. The patient has an MRI pending of the brain. She will be a good candidate for anticoagulation of MRI of the brain shows no bleeding complications. She is back into normal sinus rhythm. The white cell count is at 10, hemoglobin is at 13.4, platelet count is at 192, BUN is at 60 with a creatinine of 0.9 and a sodium level is at 137. Patient is also completing course of antibiotics regarding UTI and urine culture showing gram-negative bacillus. Objective - Vital Signs Vital signs: Vital Signs Temp 97.4 F L 11/11/22 07:38 Pulse 66 11/11/22 07:38 Resp 16 11/11/22 07:38 BP 103/67 11/11/22 07:38 Pulse Ox 95 11/11/22 09:25 FiO2 Intake & Output 11/10/22 11/11/22 11/11/22 18:59 06:59 18:59 Intake Total 318 200 Output Total 0 Balance 318 200 Weight 76 kg Intake: Oral 318 200 Output: Urine 0 Other: Voiding Method Bedside Commode Toilet Toilet # Voids 1 - Exam GENERAL EXAM: Alert, 79-year-old white female appearing stated age, comfortable in no apparent distress. HEAD: Normocephalic and atraumatic EYES: Normal reaction of pupils, equal size. NOSE: Clear with pink turbinates. THROAT: No erythema or exudates. NECK: No masses, no JVD. CHEST: No chest wall deformity. LUNGS: Equal air entry with no crackles, wheeze, rhonchi or dullness. No conversational dyspnea or accessory muscle use.. CVS: S1 and S2 normal with no audible murmur, regular rhythm. No extra heart sounds ABDOMEN: No hepatosplenomegaly, active bowel sounds, no guarding or rigidity. SPINE: No scoliosis or deformity SKIN: No rashes CENTRAL NERVOUS SYSTEM: Patient is alert and oriented. No unilateral facial wea kness/droop. Vision is intact. Extraocular movement intact. No nystagmus. There is still some residual expressive dysphasia. Tongue is midline. Shoulder shrug equal and normal bilaterally. Extremity strength 5/5 throughout. Sensation intact. No ataxia. Deep tendon reflexes 1-2+ throughout. No neglect. EXTREMITIES: There is no peripheral edema, clubbing, or cyanosis. Peripheral pulses are intact. - Labs CBC & Chem 7: 11/11/22 06:54 11/11/22 06:54 Labs: Microbiology - Last 24 Hours (Table) 11/09/22 11:00 Urine Culture - Preliminary Urine,Clean Catch Gram Neg Bacilli Assessment and Plan Assessment: Suspect acute ischemic CVA status post TPA infusion. Patient still has some residual expressive aphasia, otherwise, no other residual deficits. Nonenhanced brain CT showed no acute intracranial hemorrhage or midline shift. 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 There was mild- moderate age-related cerebral atrophy and moderate chronic small vessel ischemic changes. Brain CTA did not show any large vessel significant stenosis, occlusions, or aneurysms. There was a 2.2 cm anterior right frontal lobe meningioma. Paroxysmal A. fib, back into sinus rhythm, the echocardiogram shows a normal LV, negative bubble study Hyperlipidemia Benign essential hypertension UTI currently on Augmentin. The patient is going gram-negative bacillus in the urine cultures Hypothyroidism GERD Never smoker Plan: MRI of the brain today Will likely benefit from anticoagulants Final decision will be left up in urology Neurologically stable. The patient is currently on statins and she is taking pravastatin 40 mg by mouth daily Increase mobility Provide diet Continue Augmentin Cardiac rhythm is sinus Echo of the heart was completed yesterday and the findings showed a preserved LV function with an ejection fraction of 50-55%. Normal valvular function. The patient is on a medical surgical floor. Remote tele.
--- NOTE | 2022-11-11 13:19 | MR ---
EXAMINATION TYPE: MR brain wo/w con DATE OF EXAM: 11/11/2022 1:05 PM COMPARISON: CT brain 11/09/2022 HISTORY: CVA, meningioma. CONTRAST: Patient received 7.5 mL intravenous Gadavist gadolinium contrast. Multiplanar and multispin-echo imaging of the brain was performed . Pre and post contrast enhanced i mages are obtained. The ventricles, basal cisterns and sulci overlying the cerebral convexities are mildly enlarged. There is evidence of mild periventricular white matter ischemic demyelination. Remote deep white matter insults are also noted. Diffusion-weighted imaging demonstrates left-sided parietal occipital increase signal noted compatibl e with acute vascular insult. Cortical component is noted. No additional areas of abnormal diffusion. There is no evidence for midline shift or mass effect. Acute intracranial hemorrhage or extra-axial collection is not evident. Right frontal enhancing meningioma is redemonstrated and measures 2.3 cm. No additional enhancing les ions are seen. The paranasal sinuses and mastoid air cells are well-aerated. IMPRESSION: 1.Diffusion-weighted imaging demonstrates left-sided parietal occipital increase signal noted compati ble with acute vascular insult. Cortical component is noted. 2. Stable enhancing right frontal meningioma.
[2022-11-11] MEDS: bisacodyL 5 MG TABLET.DR PO SCH (20:03)
[2022-11-11] MEDS: PRAVASTATIN SODIUM 40 MG TAB PO SCH (20:03)
--- NOTE | 2022-11-11 20:20 | P.PN ---
Subjective Progress Note Date: 11/11/22 Patient was seen for a follow-up. Patient is sitting comfortably in the recliner. Patient states that she is much better. She wants to go home. Her speech and language functions have improved. No new focal symptoms. Objective - Vital Signs Vital signs: Vital Signs Temp 98.2 F 11/11/22 11:05 Pulse 60 11/11/22 12:06 Resp 16 11/11/22 12:06 BP 118/73 11/11/22 12:06 Pulse Ox 98 11/11/22 12:06 FiO2 Intake & Output 11/10/22 11/11/22 11/11/22 18:59 06:59 18:59 Intake Total 318 200 Output Total 0 Balance 318 200 Weight 76 kg Intake: Oral 318 200 Output: Urine 0 Other: Voiding Method Bedside Commode Toilet Toilet # Voids 1 - Exam Patient's mental status, speech and language functions are normal. Patient can name and repeat very well. Her word hesitancy has almost resolved. Patient is fully oriented. On cranial nerve examination, pupils are equal, round and reacting. Visual wing are full on confrontation, with no neglect on double simultaneous stimulation. Extraocular muscles intact, face is symmetric and tongue protrudes the midline. On muscle strength testing there is no pronator drift and the strength is normal in arms and legs. Sensory to touch is equal with no neglect on double simultaneous stimulation. No ataxia for [id number] testing. - Labs CBC & Chem 7: 11/11/22 06:54 11/11/22 06:54 Labs: Microbiology - Last 24 Hours (Table) 11/09/22 11:00 Urine Culture - Final Urine,Clean Catch Escherichia coli Assessment and Plan Assessment: * Acute ischemic stroke involving left parietal occipital region, confirmed on MRI. Patient's symptoms manifesting with expressive aphasia, and right visual field neglect. Event appears embolic in nature. Patient's current NIH stroke scale is 0. * New onset atrial fibrillation * Evidence of old CVA involving left frontal region noted on current CT head (patient never had any stroke or TIA symptoms in the past). * Acute UTI, patient on Augmentin. * Mild renal insufficiency * Right frontal lobe meningioma 2.2 cm, probable incidental. * History of right hip fracture January 2022. Plan: * MRI of the brain confirmed an acute ischemic stroke involving left parietal oc cipital region. Cortical component is noted. Stable 2.3 x 2.3 cm right frontal enhancing meningioma. I personally reviewed MRI, I agree with the findings. No hemorrhage. * 2-D echo revealed negative agitated saline study. Normal left atrial size. Normal left ventricular systolic function, with EF 50-55%. No embolic source. * Patient has developed new onset atrial fibrillation. Cardiology consulted. Recommending starting Eliquis. * CTA head and neck showed: No significant stenosis in the common or internal carotid arteries bilaterally. No large vessel occlusion or aneurysm at the level of [place]. Incidental 2.2 cm anterior right frontal lobe meningioma noted. * Fasting a.m. lipid panel cholesterol 161, LDL 87, HDL 53, triglycerides 96. Continue pravastatin 40 mg daily. * Hemoglobin A1c 5.3 * B12 2644 on 06/23/2022, TSH normal. * Optimize control of blood pressure to normotensive level. * EEG was performed, which was abnormal due to near constant focal slowing and dysrhythmic delta and theta range in the left temporal region. This is suggestive of focal cortical neuronal dysfunction, may suggest underlying structural abnormality. Clinical correlation is recommended. No clear-cut epileptiform activity was seen. If the suspicion for seizures is high, suggest prolonged, sleep deprived EEG. * Recommend stopping HRT, due to recent stroke/TIA. * DVT prophylaxis: Lovenox 40 mg subcu daily. * Possible discharge in the morning, it remains stable overnight.
[2022-11-11] MEDS ORDERED: APIXABAN 5 MG TAB PO SCH (21:00)
[2022-11-11] MEDS: TEMAZEPAM 15 MG CAP PO PRN (21:54)
[2022-11-12] MEDS: LEVOTHYROXINE 75 MCG TAB PO SCH (06:33)
[2022-11-12] MEDS ORDERED: ASPIRIN 81 MG PO SCH (09:00)
[2022-11-12] MEDS ORDERED: APIXABAN 5 MG TAB PO SCH (09:00)
[2022-11-12] MEDS: AMOXIC-POT CLAV 875-125MG 1 EACH TAB PO SCH (09:23)
[2022-11-12] MEDS: ESCITALOPRAM 10 MG TAB PO SCH (09:24)
[2022-11-12] MEDS: ASCORBIC ACID 500 MG TAB PO SCH (09:24)
[2022-11-12] MEDS: METOPROLOL TARTRATE 25 MG TAB PO SCH (09:24)
--- NOTE | 2022-11-12 10:19 | P.PN ---
Subjective HISTORY OF PRESENT ILLNESS: This is a 87-year-old female with a past medical history significant for hypertension, hyperlipidemia, hypothyroidism, and GERD. Patient follows in the office with Dr. Celaya. We have been asked to see the patient in consultation for new onset atrial fibrillation. Patient examined at the bedside. Patient presented to the hospital with a chief complaint of expressive aphasia. Patient denied having any weakness. She denies having vision issues although neurology has noted the patient had right visual field neglect. Patient underwent computed tomography scan revealing evidence of old CVA involving the right frontal region. She is scheduled to undergo MRI today. Patient developed atria l fibrillation with RVR yesterday evening. She does report having palpitations at that time. Telemetry this morning reveals sinus mechanism. Patient denies any chest pain or pressure. She denies any shortness of breath. She is currently on full dose aspirin per neurology. * EKG reveals A. fib with RVR * Chest xray mild cardiomegaly without suspicious new acute pulmonary process * Current home cardiac medications include pravastatin 40 mg daily, metoprolol tartrate 25 mg twice a day * Echocardiogram completed revealing ejection fraction 50-55%, mild MR, trace TR. Negative bubble study. 11/12/2022 Patient examined this morning at the bedside. Patient denies chest pain or pressure. She denies shortness of breath. Telemetry reveals sinus bradycardia with a heart rate in the 50s. She denies dizziness or lightheadedness. Patient underwent MRI revealing diffuse weighted imaging demonstrating left-sided parietal occipital increased signal noted compatible with acute vascular insult. PHYSICAL EXAM: VITAL SIGNS: Reviewed. GENERAL: Well-developed in no acute distress. HEENT: Head is normocephalic. Pupils are equal, round. Sclerae anicteric. Mucous membranes of the mouth are moist. Neck supple. No JVD or thyromegaly LUNGS: Respirations even and unlabored. Lungs essentially clear to auscultation bilaterally. HEART: Regular rate and rhythm. S1 and S2 heard. ABDOMEN: Soft. Nondistended. Nontender. EXTREMITIES: Normal range of motion. No clubbing or cyanosis. Peripheral pulses intact. No lower extremity edema NEUROLOGIC: Awake and alert. Oriented x 3. ASSESSMENT: Expressive aphasia, acute CVA, status post TPA administration New onset paroxysmal atrial fibrillation with RVR Old CVA involving right frontal region, per computed tomography scan Urinary tract infection Hypertension Hyperlipidemia Hypothyroidism GERD PLAN: Continue telemetry monitoring Continue metoprolol tartrate 25 mg twice a day Neurology has cleared patient to begin oral anticoagulation. We will begin ELiquis 5 mg twice a day Further recommendations pending patient course Nurse practitioner note has been reviewed by physician. Signing provider agrees with the documented findings, assessment, and plan of care. Objective - Vital Signs Vital signs: Vital Signs Temp 98.0 F 11/12/22 09:21 Pulse 63 11/12/22 09:21 Resp 16 11/12/22 09:21 BP 109/66 11/12/22 09:21 Pulse Ox 96 11/12/22 09:21 FiO2 Intake & Output 11/11/22 11/12/22 11/12/22 18:59 06:59 18:59 Intake Total 400 Balance 400 Weight 72 kg Intake: Oral 400 Other: Voiding Method Toilet Toilet Toilet # Voids 2 - Labs CBC & Chem 7: 11/11/22 06:54 11/11/22 06:54 Labs: Microbiology - Last 24 Hours (Table) 11/09/22 11:00 Urine Culture - Final Urine,Clean Catch Escherichia coli
--- NOTE | 2022-11-12 12:09 | P.PN ---
Subjective Progress Note Date: 11/12/22 I am seeing this patient in consultation today 11/09/2022 in the intensive care unit following TPA administration in the ER for CVA-like symptoms. Patient is an 87-year-old female past medical history significant for hypertension, hyperlipidemia, GERD. Patient was lying in bed. Her left the house for about 10 minutes. When he came back, the patient was found on the floor at the foot of the bed. She was aphasic. He called EMS. Last known well was approximately 1930. NIH was scored at 4 in the emergency room. There were no identified contraindications to TPA. Nonenhanced brain CT showed no acute intracranial hemorrhage or midline shift. 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 There was mild-moderate age-related cerebral atrophy and moderate chronic small vessel ischemic changes. Brain CTA did not show any significant stenosis, occlusions, aneurysms. There was a 2.2 cm anterior right frontal lobe meningioma. Neuro-interventionalist recommended fibrinolytics. Patient is currently in the intensive care unit, on room air, in no acute distress. According to her , who is at bedside, her expressive dysphasia has significantly improved post TPA. She is able to speak in full sentences, occasionally cannot find the appropriate words. No other deficits noted. CBC on arrival is unremarkable. CMP on arrival was also unremarkable. ECG shows normal sinus rhythm without any acute ischemic changes. Urinalysis, shows nitrates and leukocytes and many bacteria. When asked, she has no urinary complaints. Likely asymptomatic bacteriuria. Afebrile. Patient is being monitored in the intensive care unit at least overnight. On today's evaluation of 11/10/2022, the patient is doing well no headaches. No focal neurological deficit. Some limited difficulties in finding the right words. For the most part, her speech is adequate. A follow-up CAT scan of the brain was done and it shows no evidence of any bleeding. There is evidence of a remote left frontal lobe ischemic injury noted along with some chronic nonspecific white matter changes likely secondary to chronic vascular ischemia. The patient is afebrile. White cell count of 8.7. She was suspected to have a UTI and for that reason she was started on Augmentin. She has previous UTI with gram-negative and enterococcus. Is currently on room air oxygen. No headache. No altered mentation. On 11/11/2022, the patient is clinically stable. Neurologic status is also stable. The patient was transferred out of the intensive care unit. Overnight, the patient went into A. fib RVR and she converted back into normal sinus rhythm. S1, the A. fib could've been the cause for her stroke. The patient has an MRI pending of the brain. She will be a good candidate for anticoagulation of MRI of the brain shows no bleeding complications. She is back into normal sinus rhythm. The white cell count is at 10, hemoglobin is at 13.4, platelet count is at 192, BUN is at 60 with a creatinine of 0.9 and a sodium level is at 137. Patient is also completing course of antibiotics regarding UTI and urine culture showing gram-negative bacillus. 11/12/2022, the patient neurologically stable. The patient was already started on anticoagulation and the patient is currently on Eliquis 5 mg by mouth twice a day. Cardiac rhythm is sinus. There are mild of the brain was done and the patient was found to have diffuse weighted imaging in the left occipitoparietal area compatible with an acute vascular insult. No evidence of any bleeding at this point in time. She is hemodynamically stable. Labs also stable, the lungs noted that 10 with a hemoglobin of 15.4. BUN is at 60 with a creatinine of 0.9. Objective - Vital Signs Vital signs: Vital Signs Temp 98.0 F 11/12/22 09:21 Pulse 63 11/12/22 09:21 Resp 16 11/12/22 09:21 BP 109/66 11/12/22 09:21 Pulse Ox 96 11/12/22 09:21 FiO2 Intake & Output 11/11/22 11/12/22 11/12/22 18:59 06:59 18:59 Intake Total 400 Balance 400 Weight 72 kg Intake: Oral 400 Other: Voiding Method Toilet Toilet Toilet # Voids 2 - Exam GENERAL EXAM: Alert, 79-year-old white female appearing stated age, comfortable in no apparent distress. HEAD: Normocephalic and atraumatic EYES: Normal reaction of pupils, equal size. NOSE: Clear with pink turbinates. THROAT: No erythema or exudates. NECK: No masses, no JVD. CHEST: No chest wall deformity. LUNGS: Equal air entry with no crackles, wheeze, rhonchi or dullness. No conversational dyspnea or accessory muscle use.. CVS: S1 and S2 normal with no audible murmur, regular rhythm. No extra heart sounds ABDOMEN: No hepatosplenomegaly, active bowel sounds, no guarding or rigidity. SPINE: No scoliosis or deformity SKIN: No rashes CENTRAL NERVOUS SYSTEM: Patient is alert and oriented. No unilateral facial weakness/droop. Vision is intact. Extraocular movement intact. No nystagmus. There is still some residual expressive dysphasia. Tongue is midline. Shoulder shrug equal and normal bilaterally. Extremity strength 5/5 throughout. Sensation intact. No ataxia. Deep tendon reflexes 1-2+ throughout. No neg lect. EXTREMITIES: There is no peripheral edema, clubbing, or cyanosis. Peripheral pulses are intact. - Labs CBC & Chem 7: 11/11/22 06:54 11/11/22 06:54 Labs: Microbiology - Last 24 Hours (Table) 11/09/22 11:00 Urine Culture - Final Urine,Clean Catch Escherichia coli Assessment and Plan Assessment: Suspect acute ischemic CVA status post TPA infusion. Patient still has some residual expressive aphasia, otherwise, no other residual deficits. Nonenhanced brain CT showed no acute intracranial hemorrhage or midline shift. 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 There was mild- moderate age-related cerebral atrophy and moderate chronic small vessel ischemic changes. Brain CTA did not show any large vessel significant stenosis, occlusions, or aneurysms. There was a 2.2 cm anterior right frontal lobe meningioma. Paroxysmal A. fib, back into sinus rhythm, the echocardiogram shows a normal LV, negative bubble study Hyperlipidemia Benign essential hypertension UTI currently on Augmentin. The patient is going gram-negative bacillus in the urine cultures and the final cultures consistent with E. coli Hypothyroidism GERD Never smoker Plan: MRI of the brain was done yesterday and showed the acute vascular insult involving the left occipital parietal lobe The patient is currently on anticoagulation with Eliquis 5 mg by mouth twice a day Neurologically stable. The patient is currently on statins and she is taking pravastatin 40 mg by mouth daily Increase mobility Provide diet Continue Augmentin Cardiac rhythm is sinus Echo of the heart was completed yesterday and the findings showed a preserved LV function with an ejection fraction of 50-55%. Normal valvular function. Pulmonary and critical care services will sign off
[2022-11-12 12:12] VITALS: BP 127/68; PULSE 50; TEMP 97.4
--- NOTE | 2022-11-12 14:28 | P.DS ---
Providers Date of admission: 11/08/22 21:17 Expected date of discharge: 11/12/22 Attending physician: Arleen Hermosillo Consults: 11/08/22 22:17 Consult Physician Routine Consulting Provider: Byron Suarez Consult Reason/Comments: cva with tpa Do you want consulting provider notified?: Already Contacted Consult Physician Routine Consulting Provider: Candy Pizano Consult Reason/Comments: CVA with tpa Do you want consulting provider notified?: Already Contacted 11/10/22 21:04 Consult Physician Routine Consulting Provider: Roc Maxwell Consult Reason/Comments: new onset aflutter Do you want consulting provider notified?: Yes, Notify in am Primary care physician: Arleengail Hermosillo [facility] Course: Diagnosis on discharge: 1. 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 Symptoms improved post TPA 2. Incidental finding of right frontal lobe meningioma. Neurology services consulted 3. Urinary tract infection she was started on Augmentin urine culture ordered 4. History of hyperlipidemia 5. Essential hypertension 6. Hypothyroidism 7. History of GERD 8. Right hip replacement in January 2022 9. New onset atrial flutter/A. fib. Cardiac he services consulted Lovenox increased to 1 mg/kg twice a day Hospital course: Mirna Dillon is a 87 year old female patient who presented to the ER with concerns of aphasia and strokelike symptoms. Patient's was home and left for 10 minutes and came back on patient on the floor and is able to communicate. Patient denies loss of consciousness. Patient has past medical history of hypertension, hyperlipidemia, GERD. Head CT was performed showing no acute intracranial hemorrhage midline shift or is mild to moderate diffuse age-related cerebral atrophy and moderate chronic small vessel ischemic change redemonstrated. There is a left frontal lobe infarct anterior watershed region are currently studying from prior study. CTA completed showing no significant stenosis in common or intercarotid arteries bilaterally no large vessel occlusion or aneurysm at the level of the [place] incidental 2.2 cm anterior right frontal lobe meningioma noted. Chest x-ray completed showing mild cardiomegaly without suspicious new acute pulmonary process. Sinus rhythm with first-degree AV block with occasional supraventricular premature complexes. Stroke protocol was initiated in the ER and patient did qualify for fibrinolytics. TPA was administered symptoms significantly improved post TPA. Patient was able to speak full sentences post TPA UA positive for urinary tract infection urine culture has been ordered. Patient has been admitted to the intensive care unit per stroke protocol post TPA protocol. Critical care neurology services have been consulted repeat computed tomography scan has been ordered. Vital signs include temperature 98.3, heart rate 64, respiratory rate 17, blood pressure 128/49 with a pulse ox of 95% on room air. On 11/10/2022 patient was seen and examined in the ICU she is alert and oriented 3 in no apparent distress, speech is better than yesterday, she is still occasionally having difficulty finding words, otherwise she denies any complaints there is no fever or chills no headache or dizziness no chest pain no shortness of breath no cough no nausea or vomiting no abdominal pain no diarrhea and no urinary symptoms, at this time we are still awaiting MRI of the brain, and further input from neurology. On 11/11/2022 patient has been moved out of the intensive care unit currently selective care. Patient had episode of atrial flutter last night this is new for patient cardiology services were consulted in Lovenox increased to 1 mg/kg twice a day. MRI and EEG also ordered per neurology. Awaiting further recommendation from cardiology input in regards to home anticoagulation. Current vital signs temp 97.4, heart rate 66, respiratory rate 16, blood pressure 103/67 with a pulse ox of 96%. Speech has improved On 11/12/2022 patient has been moved out of the intensive care unit currently selective care. Patient had episode of atrial flutter, MRI and EEG also ordered per neurology. Awaiting further recommendation from cardiology input in regards to home anticoagulation. Current vital signs temp 97.4, heart rate 66, respiratory rate 16, blood pressure 103/67 with a pulse ox of 96%. Speech has improved. Patient was cleared by cardiology and neurology for discharge to home. She was given a prescription for Eliquis 5 mg by mouth twice a day, she was also given a prescription for Augmentin 875 twice daily for 5 more days. Patient will be followed in our office within 1 week. Patient Condition at Discharge: Stable Plan - Discharge Summary Discharge Rx Participant: Yes New Discharge Prescriptions: New Aspirin 81 mg PO DAILY tab Amoxic-Pot Clav 875-125Mg [Augmentin 875-125] 1 each PO Q12HR tab Apixaban [Eliquis] 5 mg PO BID tab Continue Temazepam [Restoril] 15 mg PO HS PRN PRN Reason: Insomnia Metoprolol Tartrate [Lopressor] 25 mg PO BID Alendronate Sodium [Fosamax] 70 mg PO Q7D Estradiol Cream [Estrace Cream 0.01%] 1 gm VAGINAL DIRECTED Fluticasone Nasal [place] [Flonase Nasal [place]] 1 spr EA NOSTRIL DAILY Levothyroxine Sodium [Synthroid] 75 mcg PO DAILY Potassium Chloride ER [K-Dur 20] 20 meq PO DAILY Pravastatin Sodium [Pravachol] 40 mg PO DAILY Escitalopram [Lexapro] 10 mg PO DAILY Omeprazole 20 mg PO DAILY Discharge Medication List Alendronate Sodium [Fosamax] 70 mg PO Q7D 01/15/22 [History] Escitalopram [Lexapro] 10 mg PO DAILY 01/15/22 [History] Metoprolol Tartrate [Lopressor] 25 mg PO BID 01/15/22 [History] Pravastatin Sodium [Pravachol] 40 mg PO DAILY 01/15/22 [History] Temazepam [Restoril] 15 mg PO HS PRN 01/15/22 [History] Estradiol Cream [Estrace Cream 0.01%] 1 gm VAGINAL DIRECTED 11/09/22 [History] Fluticasone Nasal [place] [Flonase Nasal [place]] 1 spr EA NOSTRIL DAILY 11/09/22 [History] Levothyroxine Sodium [Synthroid] 75 mcg PO DAILY 11/09/22 [History] Omeprazole 20 mg PO DAILY 11/09/22 [History] Potassium Chloride ER [K-Dur 20] 20 meq PO DAILY 11/09/22 [History] Amoxic-Pot Clav 875-125Mg [Augmentin 875-125] 1 each PO Q12HR tab 11/12/22 [Rx] Apixaban [Eliquis] 5 mg PO BID tab 11/12/22 [Rx] Aspirin 81 mg PO DAILY tab 11/12/22 [Rx] Follow up Appointment(s)/Referral(s): Arleen Hermosillo MD [Primary Care Provider] - 1-2 days Patient Instructions/Handouts: Ischemic Stroke (DC)
== END 2022-11-12 15:28 | disposition home or self-care (01) | DRG 62 ==
LOC: EC 20:38 → 2SICU 21:17 → 3SCARD 11-10 17:44
PROVIDERS: ADMIT Internal Medicine; ATTEND Internal Medicine
DX: I63.532 Cerebral infarction due to unspecified occlusion or stenosis of left posterior cerebral artery (principal); I48.92 Unspecified atrial flutter; G31.9 Degenerative disease of nervous system, unspecified; I48.0 Paroxysmal atrial fibrillation; D32.0 Benign neoplasm of cerebral meninges; N39.0 Urinary tract infection, site not specified; R47.01 Aphasia; I11.9 Hypertensive heart disease without heart failure; G93.89 Other specified disorders of brain; E03.9 Hypothyroidism, unspecified; K21.9 Gastro-esophageal reflux disease without esophagitis; E78.5 Hyperlipidemia, unspecified; I44.0 Atrioventricular block, first degree; Z96.641 Presence of right artificial hip joint; R29.704 NIHSS score 4; R47.02 Dysphasia; N28.9 Disorder of kidney and ureter, unspecified; H53.8 Other visual disturbances; R29.700 NIHSS score 0; B96.20 Unspecified Escherichia coli [E. coli] as the cause of diseases classified elsewhere; I49.1 Atrial premature depolarization; Z79.83 Long term (current) use of bisphosphonates; Z86.73 Personal history of transient ischemic attack (TIA), and cerebral infarction without residual deficits; Z87.440 Personal history of urinary (tract) infections; Z91.81 History of falling; Z88.1 Allergy status to other antibiotic agents; Z79.890 Hormone replacement therapy; Z79.899 Other long term (current) drug therapy
CPT/HCPCS: 36415; 37195; 70450; 70496; 70498; 70553; 71045; 80048; 80053; 80061; 81001; 82550; 83036; 84443; 84484; 85025; 85610; 85730; 87077; 87086; 87186; 93005; 93306; 94760; 95816; 99291

== ENCOUNTER 2023-04-28 09:02 | Day surgery (SDC) | payer MEDICARE ==
[2023-04-26 10:21] VITALS: BMI 29.2
[2023-04-28] MEDS: SODIUM CHLORIDE 0.9% 1,000 ML IV SCH (09:27)
[2023-04-28 09:40] LABS: Basophils % (A) 0 %; Eosinophils # (A) 0.2 k/uL (0-0.7); Eosinophils % (A) 2 %; HCT 42.7 % (34.0-46.0); Lymphocytes # (A) 1.6 k/uL (1.0-4.8); Lymphocytes % (A) 15 %; MCH 29.9 pg (25.0-35.0); MCHC 32.8 g/dL (31.0-37.0); MCV 91.1 fL (80.0-100.0); Mean Platelet Volume 7.8; Monocytes # (A) 0.6 k/uL (0-1.0); Monocytes % (A) 6 %; Neutrophils # (A) 7.8 k/uL (1.3-7.7); Neutrophils % (A) 75 %; Platelet Count 224 k/uL (150-450); RBC 4.69 m/uL (3.80-5.40); RDW 13.5 % (11.5-15.5); WBC 10.4 k/uL (3.8-10.6)
[2023-04-28 10:38] LABS: African American GFR (CKD) 46 (>60 ml/min/1.73 sqM); Anion Gap 10 mmol/L; Blood Urea Nitrogen 19 mg/dL (7-17); Calcium 9.8 mg/dL (8.4-10.2); Carbon Dioxide 24 mmol/L (22-30); Chloride 105 mmol/L (98-107); Glucose 102 mg/dL (74-99); Non-African American GFR(CKD) 40 (>60 ml/min/1.73 sqM); Potassium 4.3 mmol/L (3.5-5.1); Sodium 139 mmol/L (137-145)
[2023-04-28] MEDS: MIDAZOLAM 2 MG/2 ML VIAL IVP ONE ×2 (12:29)
[2023-04-28] MEDS: fentaNYL (PF) 50 MCG/ML 2 ML AMP IVP ONE ×2 (12:30)
[2023-04-28] MEDS: LIDOCAINE 1% INJ 10MG/ML (20 ML MDV) SQ ONE (12:38)
[2023-04-28] MEDS: ceFAZolin 1 GM in SODIUM CHLORIDE 0.9% IRRIG BTL 250 ML IRRIGATION PRN (12:45)
--- NOTE | 2023-04-28 16:18 | P.PCN ---
Description of Procedure: CARDIOLOGY PROCEDURE NOTE Bunch Breaker: Dr. Roc Maxwell Procedure performed: Insertion dual chamber permanent pacemaker Site: Left subclavian Indications: Sick Sinus Syndrome, tachybrady syndrome Complications: None Blood Loss: Minimal Description of Procedure: After the risks, benefits, and alternatives of the above-mentioned procedure was explained in detail with the patient, informed consent was obtained. The patient was taken to the cardiac catheterization suite where the left subclavian area was sterily prepped and draped in the usual fashion. One percent lidocaine was used to anesthetize the left subclavian area. Twenty milliliters of Isoview 370 contrast was injected into the left antecubital vein to allow for direct visualization of the left subclavian vein under fluoroscopy. A 1.5 inch incision was made utilizing a #15 blade in the left subclavian site. Hemostasis was made complete. Electrocautery along with digital blunt dissection was utilized to dissect to the level of the pectoralis muscle fascia and create a pocket large enough to accommodate the generator. A thin walled micro puncuture needle was used to cannulate the left subclavian vein. A guide-wire was inserted through the needle into the vascular lumen under fluoroscopic guidance. The needle was removed. Another thin walled micr puncture needle was used to again cannulate the left subclavian vein. A guide-wire was inserted through the needle into the vascular lumen under fluoroscopic guidance. The needle was removed and both guide-wires were attached to the field. A venous sheath and dilator were advanced over the guidewire into the vascular lumen under fluoroscopic guidance. The dilator and guidewire were then removed. A right ventricular bipolar lead was inserted into the sheath and advanced under fluoroscopic guidance into the right ventricle under fluoroscopic guidance. Adequate sensing and pacing thresholds were achieved and the lead was screwed into place in the RV apex. The sheath was then torn away. The lead collar was advanced and anchored into place utilizing #0 silk suture. Next, another venous sheath and dilator were advanced under fluoroscopic guidance into the vascular lumen over the guidewire. After removal of the dilator and guidewire, a right atrial bipolar lead was inserted into this sheath and advanced under fluoroscopic guidance into the right atrium. The lead was positioned into the right atrial appendage. Adequate sensing and pacing thresholds were then achieved with patient being in Aflutter at the time and the lead was screwed into place. The sheath was then torn away. The lead collar was advanced and anchored into place utilizing #0 silk suture. The leads were then inserted into the appropriate position into the generator. They were then secured with the setscrew provided. The leads and generator were inserted into the pocket with the leads posterior. The subcutaneous tissue was approximated utilizing #2.0 and 3.0 vicryl in an interrupted stitch fashion. The dermal layer was approximated utilizing #4.0 vicryl. The area was cleansed with sterile saline and dried. A sterile 4x4 dressing was applied and the patient was transferred to the post catheterization holding area in stable and satisfactory condition. The patient tolerated the procedure well. Generator Data Financial Planner: [employer]OCKO Brand: [id number] Angela XT DR MRI Model #: [id number] Serial#: [id number] Right Atrial Bipolar Lead Data: Type: Active fixation lead Financial Planner: [employer] Model#: [id number] Serial Number: [id number] Right Ventricular Bipolar Lead Data: Type: Active fixation lead Financial Planner: [employer] Model #: [id number] Serial #: [id number] Stimulation Thresholds: Right atrial bipolar lead pacing and sensing thresholds Voltage: 0.7 Impedance: 608 ohms P-wave sensin.8 mV Right Ventricular bipolar lead pacing and sensing thresholds Pulse Width: 0.4ms Voltage: 0.5 volts Impedance: 969 ohms R-wave sensin.0 mV Parameter Setting: Pacing mode is AAIR<=>DDDR Lower rate 60 bpm Upper rate 120 bpm Impressions: 1. Successful implantation of a dual chamber permanent pacemaker in the left pectoral site. Plan: 1. Routine post procedure care will be instituted as well as outpatient follow- up surveillance.
--- NOTE | 2023-04-29 06:32 | XR ---
EXAMINATION TYPE: XR chest 1V portable DATE OF EXAM: 04/29/2023 COMPARISON: Chest x-ray November 08, 2022 HISTORY: Lead placement check TECHNIQUE: Single frontal upright view of the chest is obtained. FINDINGS: There is new dual-lead left-sided pacemaker with leads projecting over the levels of the r ight atrium and right ventricle. There is some chronic parenchymal changes bilaterally redemonstrated without suspicious new focal air space opacity, pleural effusion, or pneumothorax seen. The cardiac silhouette size is stable and mildly enlarged. The osseous structures are demineralized. IMPRESSION: As above.
[2023-04-29] MEDS: ACETAMINOPHEN TAB 325 MG TAB PO PRN (06:37)
[2023-04-29 08:47] VITALS: RESP 16
--- NOTE | 2023-04-29 14:51 | P.DS ---
Providers Attending physician: Roc Maxwell DO Primary care physician: [facility] Course: Patient is a pleasant 88-year-old female who presented for outpatient elective dual-chamber permanent pacemaker. She has been having episodes of tachycardia as well as bradycardia consistent with tachybradycardia syndrome, sick sinus syndrome and therefore was recommended to have permanent pacemaker. Patient had permanent pacemaker placed 04/27 and is doing well today without any chest pain or shortness breath. She will be restarted on her anticoagulation tonight. Discussed restrictions and patient scheduled for follow-up with Dr. Celaya in one week. Plan - Discharge Summary Discharge Rx Participant: No New Discharge Prescriptions: No Action Temazepam [Restoril] 15 mg PO HS PRN PRN Reason: Insomnia Alendronate Sodium [Fosamax] 70 mg PO Q7D Estradiol Cream [Estrace Cream 0.01%] 1 gm VAGINAL Q7D Ascorbic Acid [Vitamin C] 500 mg PO DAILY rOPINIRole HCL [Requip] 0.5 mg PO DAILY Melatonin [Melatonin ER] 10 mg PO HS Levothyroxine Sodium [Synthroid] 50 mcg PO DAILY Cranberry Fruit Extract [Cranberry] 200 mg PO TID Pravastatin Sodium [Pravachol] 40 mg PO DAILY Escitalopram [Lexapro] 5 mg PO DAILY Omeprazole 40 mg PO DAILY Apixaban [Eliquis] 5 mg PO BID tab Multivitamins, Thera [Multivitamin (formulary)] 1 tab PO DAILY Magnesium 400 mg PO DAILY Docusate [Colace] 200 mg PO HS Calcium Carbonate [Calcium] 1,200 mg PO DAILY Discharge Medication List Alendronate Sodium [Fosamax] 70 mg PO Q7D 01/15/22 [History] Escitalopram [Lexapro] 5 mg PO DAILY 01/15/22 [History] Pravastatin Sodium [Pravachol] 40 mg PO DAILY 01/15/22 [History] Temazepam [Restoril] 15 mg PO HS PRN 01/15/22 [History] Estradiol Cream [Estrace Cream 0.01%] 1 gm VAGINAL Q7D 11/09/22 [History] Omeprazole 40 mg PO DAILY 11/09/22 [History] Apixaban [Eliquis] 5 mg PO BID tab 11/12/22 [Rx] Ascorbic Acid [Vitamin C] 500 mg PO DAILY 04/26/23 [History] Calcium Carbonate [Calcium] 1,200 mg PO DAILY 04/26/23 [History] Cranberry Fruit Extract [Cranberry] 200 mg PO TID 04/26/23 [History] Docusate [Colace] 200 mg PO HS 04/26/23 [History] Levothyroxine Sodium [Synthroid] 50 mcg PO DAILY 04/26/23 [History] Magnesium 400 mg PO DAILY 04/26/23 [History] Melatonin [Melatonin ER] 10 mg PO HS 04/26/23 [History] Multivitamins, Thera [Multivitamin (formulary)] 1 tab PO DAILY 04/26/23 [History] rOPINIRole HCL [Requip] 0.5 mg PO DAILY 04/26/23 [History] Follow up Appointment(s)/Referral(s): Zuhair Celaya MD [STAFF PHYSICIAN] - 05/08/23 1:30 pm (Your appointment is @ Dr. Celaya's office, you will see the nurse in the device clinic in the office.)
[2023-04-29] MEDS: PANTOPRAZOLE 40 MG TABLET PO STA (15:13)
[2023-04-29] MEDS ORDERED: TEMAZEPAM 15 MG CAP PO PRN (15:15)
[2023-04-29] MEDS: LEVOTHYROXINE 50 MCG TAB PO SCH (15:27)
[2023-04-29] MEDS: ASCORBIC ACID 500 MG TAB PO SCH (15:27)
[2023-04-29] MEDS: MAGNESIUM OXIDE 400 MG TAB PO SCH (15:27)
[2023-04-29] MEDS: METOPROLOL SUCCINATE (ER) 25 MG TAB.ER.24H PO SCH (15:28)
[2023-04-29] MEDS: MULTIVITAMINS, THERA 1 EACH TAB PO SCH (15:28)
[2023-04-29] MEDS ORDERED: PRAVASTATIN SODIUM 40 MG TAB PO SCH (15:30)
[2023-04-29] MEDS ORDERED: ESCITALOPRAM 10 MG TAB PO SCH (15:30)
[2023-04-29 15:39] VITALS: BP 136/108; PULSE 61; TEMP 98.7
[2023-04-29] MEDS ORDERED: DOCUSATE 100 MG CAP PO SCH (21:00)
[2023-04-29] MEDS ORDERED: MELATONIN 5 MG TABLET PO SCH (21:00)
[2023-04-29] MEDS ORDERED: APIXABAN 5 MG TAB PO SCH (21:00)
[2023-05-04] MEDS ORDERED: PATIENT'S OWN (Alendronate Sodium [Fosamax] 70 MG Tablet) PO SCH (07:00)
== END 2023-04-29 18:06 ==
LOC: CATHEP 09:02 → 6NMEDSUR 13:51 → CATHEP 04-29 18:06
PROVIDERS: ATTEND Internal Medicine
DX: I49.5 Sick sinus syndrome (principal); I48.91 Unspecified atrial fibrillation; I10 Essential (primary) hypertension; E78.2 Mixed hyperlipidemia; Z86.73 Personal history of transient ischemic attack (TIA), and cerebral infarction without residual deficits; Z88.1 Allergy status to other antibiotic agents; Z91.09 Other allergy status, other than to drugs and biological substances; Z79.01 Long term (current) use of anticoagulants; Z79.899 Other long term (current) drug therapy; Z79.890 Hormone replacement therapy; Z87.891 Personal history of nicotine dependence
CPT/HCPCS: 33208; 80048; 85025; 71045; C1892; C1898; C1769; C1785; J2250; J0690; J2001; J3010

== ENCOUNTER 2023-09-02 19:30 | Emergency (ER) | payer MEDICARE ==
[2023-09-02 19:45] VITALS: RESP 18; TEMP 98
--- NOTE | 2023-09-02 20:39 | XR ---
EXAMINATION TYPE: XR ankle complete RT DATE OF EXAM: 09/02/2023 8:11 PM CLINICAL INDICATION:Female, 88 years old with history of fall; H. Initial encounter. COMPARISON: None TECHNIQUE: XR ankle complete RT; ankle is imaged in frontal, lateral and oblique projections. FINDINGS: Lateral malleolar fracture and fracture of the distal tibial metaphysis which appears to extend into the joint. Mild displacement of 2 mm or fibular and fourth tibial fractures. The joint spaces are we ll-preserved without evidence of subluxation or dislocation. Kager's fat pad is intact. Soft tissue s welling especially laterally is present. No radiopaque foreign bodies are identified. IMPRESSION: Complex fracture of the ankle involving lateral malleolus and distal tibial metaphysis 2. Subcutaneous swelling around the ankle.
--- NOTE | 2023-09-02 20:50 | ED ---
Lower Extremity Injury HPI - General Chief Complaint: Extremity Injury, Lower Stated Complaint: fall, R ankle injury Time Seen by Provider: 09/02/23 19:48 Source: patient, RN notes reviewed Mode of arrival: wheelchair Limitations: no limitations - History of Present Illness Initial Comments: This is an 88-year-old female presents emergency department chief complaint of right ankle pain. Patient states that she was stepping out of the shower when she twisted rolling her right ankle and hitting her right knee. Patient denies hitting her head or loss of conscious at the time of the fall. Patient states that she is on Eliquis due to a recent stroke and 2022. She states that she is able to bear weight on her right ankle with pain. Denies stations are numbness or tingling to the right foot. No other acute complaints at this time. - Related Data Home Medications Medication Instructions Recorded Confirmed Alendronate Sodium [Fosamax] 70 mg PO Q7D 01/15/22 04/28/23 Escitalopram [Lexapro] 5 mg PO DAILY 01/15/22 04/28/23 Pravastatin Sodium [Pravachol] 40 mg PO DAILY 01/15/22 04/28/23 Temazepam [Restoril] 15 mg PO HS PRN 01/15/22 04/28/23 Estradiol Cream [Estrace Cream 1 gm VAGINAL Q7D 11/09/22 04/28/23 0.01%] Omeprazole 40 mg PO DAILY 11/09/22 04/28/23 Ascorbic Acid [Vitamin C] 500 mg PO DAILY 04/26/23 04/28/23 Calcium Carbonate [Calcium] 1,200 mg PO DAILY 04/26/23 04/28/23 Cranberry Fruit Extract [Cranberry] 200 mg PO TID 04/26/23 04/28/23 Docusate [Colace] 200 mg PO HS 04/26/23 04/28/23 Levothyroxine Sodium [Synthroid] 50 mcg PO DAILY 04/26/23 04/28/23 Magnesium 400 mg PO DAILY 04/26/23 04/28/23 Melatonin [Melatonin ER] 10 mg PO HS 04/26/23 04/28/23 Multivitamins, Thera [Multivitamin 1 tab PO DAILY 04/26/23 04/28/23 (formulary)] rOPINIRole HCL [Requip] 0.5 mg PO DAILY 04/26/23 04/28/23 Previous Rx's Medication Instructions Recorded Apixaban [Eliquis] 5 mg PO BID tab 11/12/22 Metoprolol Succinate (ER) [Toprol 25 mg PO DAILY #90 tab 04/29/23 Xl] Allergies Allergy/AdvReac Type Severity Reaction Status Date / Time adhesive Allergy Rash/Hives Verified 09/02/23 19:45 ciprofloxacin [From Cipro] Allergy Rash/Hives Verified 09/02/23 19:45 on entire body Review of Systems ROS Statement: Those systems with pertinent positive or pertinent negative responses have been documented in the HPI. ROS Other: All systems not noted in ROS Statement are negative. Past Medical History Past Medical History: Atrial Fibrillation, Cancer, CVA/TIA, GERD/Reflux, Hyperli pidemia, Hypertension, Thyroid Disorder Additional Past Medical History / Comment(s): BREAST CA History of Any Multi-Drug Resistant Organisms: None Reported Past Surgical History: Appendectomy, Back Surgery, Breast Surgery, Section, Hysterectomy, Joint Replacement, Tonsillectomy Additional Past Surgical History / Comment(s): DOUBLE MASTECTOMY W/ RECONSTRUCTION, RIGHT HIP REPLACEMENT DUE TO FX Past Anesthesia/Blood Transfusion Reactions: No Reported Reaction Past Psychological History: No Psychological Hx Reported Smoking Status: Never smoker Past Alcohol Use History: None Reported Past Drug Use History: None Reported - Past Family History Father Family Medical History: Cancer Additional Family Medical History / Comment(s): COLON CA Mother Family Medical History: Cancer Additional Family Medical History / Comment(s): BREAST CA General Exam Limitations: no limitations General appearance: alert, in no apparent distress Head exam: Present: atraumatic, normocephalic, normal inspection Eye exam: Present: normal appearance, PERRL, EOMI. Absent: scleral icterus, conjunctival injection, periorbital swelling ENT exam: Present: normal exam, mucous membranes moist Neck exam: Present: normal inspection. Absent: tenderness, meningismus, lymphadenopathy Respiratory exam: Present: normal lung sounds bilaterally. Absent: respiratory distress, wheezes, rales, rhonchi, stridor Cardiovascular Exam: Present: regular rate, normal rhythm, normal heart sounds. Absent: systolic murmur, diastolic murmur, rubs, gallop, clicks GI/Abdominal exam: Present: soft, normal bowel sounds. Absent: distended, tenderness, guarding, rebound, rigid Extremities exam: Present: normal inspection, full ROM, normal capillary refill. Absent: tenderness, pedal edema, joint swelling, calf tenderness Right Ankle exam: Present: tenderness, swelling, ecchymosis, deformity (lateral malleolus edema, erythema and pain). Absent: normal inspection, full ROM Foot/Toe exam: Present: tenderness (lateral forefoot) Neurovascular tendon exam: Present: no vascular compromise. Absent: pulse deficit, abnormal cap refill, extremity cold to touch, pallor Gait: not tested/not observed Back exam: Present: normal inspection Neurological exam: Present: alert, oriented X3, CN II-XII intact Psychiatric exam: Present: normal affect, normal mood Skin exam: Present: warm, dry, intact, normal color. Absent: rash Course Vital Signs 09/02/23 09/02/23 19:41 21:55 Temperature 98.0 F 98.0 F Pulse Rate 65 82 Respiratory 18 18 Rate Blood Pressure 139/69 185/90 O2 Sat by Pulse 97 97 Oximetry Procedures - Orthopedic Splinting/Casting Injury #1 Side: right Lower Extremity Injury Location: short leg (sugar tong) Lower Extremity Immobilizer: Mc wrap, synthetic pre-padded splint Medical Decision Making - Medical Decision Making Was pt. sent in by a medical professional or institution (, PA, PASTEURIZER HELPER, urgent care, hospital, or fpc...) When possible be specific @ -No Did you speak to anyone other than the patient for history (EMS, parent, family, police, friend...)? What history was obtained from this source @ -No Did you review nursing and triage notes (agree or disagree)? Why? @ -I reviewed and agree with nursing and triage notes Were old charts reviewed (outside hosp., previous admission, EMS record, old EKG, old radiological studies, urgent care reports/EKG's, fpc records)? Report findings @ -No old charts were reviewed Differential Diagnosis (chest pain, altered mental status, abdominal pain women, abdominal pain men, vaginal bleeding, weakness, fever, dyspnea, syncope, headache, dizziness, GI bleed, back pain, seizure, CVA, palpatations, mental health, musculoskeletal)? @ -Differential Musculoskeletal Muscular strain, contusion, ligament sprain, fracture, arthritis, septic arthritis, bursitis, cellulitis, muscle spasm, nerve compression, DVT, arterial occlusion, herpes zoster, electrolyte abnormality, tumor.... This is not meant to be in all inclusive list EKG interpreted by me (3pts min.). @ -none X-rays interpreted by me (1pt min.). @ -xray of the right ankle reveals a complex fracture involving the lateral malleolus and the distal tibial metaphysis, subcutaneous swelling of the ankle. There is mild displacement of 2 mm above the fibular and fourth tibial fractures. CT interpreted by me (1pt min.). @ -None done U/S interpreted by me (1pt. min.). @ -None done What testing was considered but not performed or refused? (CT, X-rays, U/S, labs)? Why? @ -None What meds were considered but not given or refused? Why? @ -None Did you discuss the management of the patient with other professionals (professionals i.e. , PA, PASTEURIZER HELPER, lab, RT, psych nurse, social sciences department chair, certified medical coding specialist, teacher, college service officer, telephonic case manager)? Give summary @ -No Was smoking cessation discussed for >3mins.? @ -No Was critical care preformed (if so, how long)? @ -No Were there social determinants of health that impacted care today? How? (Homelessness, low income, unemployed, alcoholism, drug addiction, transportation, low edu. Level, literacy, decrease access to med. care, halfway, rehab)? @ -No Was there de-escalation of care discussed even if they declined (Discuss DNR or withdrawal of care, Hospice)? DNR status @ -No What co-morbidities impacted this encounter? (DM, HTN, Smoking, COPD, CAD, Cancer, CVA, ARF, Chemo, Hep., AIDS, mental health diagnosis, sleep apnea, morbid obesity)? @ -blood thinner use Was patient admitted / discharged? Hospital course, mention meds given and rou te, prescriptions, significant lab abnormalities, going to OR and other pertinent info. @ -Discharged. 88-year-old female with right ankle pain. on examination, patient is medically diffuse swelling of the lateral malleolus and ecchymosis. Patient has a strong pedal pulse intact. She is neurovascularly intact he is able to move her toes. Patient is able to flex knee with no pain. X-ray carmela rning for complex fracture of the right ankle. Placed in a sugar-tong splint of the right lower extremity and instructed to maintain nonweightbearing status using a wheelchair at home until she is able to follow-up outpatient with ergonomic specialist. Patient states that she was seeing a ergonomic specialist in the past and walked consult them on Monday morning for further evaluation. Patient was offered pain medication emergency department she has declined. All questions answered at bedside and strict return parameters discussed with the patient she is verbalized understanding. Case discussed with Dr. Nuno Undiagnosed new problem with uncertain prognosis? @ -No Drug Therapy requiring intensive monitoring for toxicity (Heparin, Nitro, Insulin, Cardizem)? @ -No Were any procedures done? @ -No Diagnosis/symptom? @ -Ankle fracture Acute, or Chronic, or Acute on Chronic? @ -Acute Uncomplicated (without systemic symptoms) or Complicated (systemic symptoms)? @ -Uncomplicated Side effects of treatment? @ -No Exacerbation, Progression, or Severe Exacerbation? @ -No Poses a threat to life or bodily function? How? (Chest pain, [place], [place], pneumonia, PE, COPD, DKA, ARF, appy, cholecystitis, CVA, Diverticulitis, Homicidal, Suicidal, threat to staff... and all critical care pts) @ -No Disposition Clinical Impression: Lateral malleolar fracture, Fracture of distal end of right tibia Disposition: HOME SELF-CARE Condition: Good Instructions (If sedation given, give patient instructions): Ankle Fracture (ED) Additional Instructions: Return to the emergency department for any new or worsening symptoms. Continue nonweightbearing status using a wheelchair at home and keep splint in place until follow-up with ergonomic specialist. Take Tylenol as needed for pain relief. Is patient prescribed a controlled substance at d/c from ED?: No Referrals: Arleen Hermosillo MD [Primary Care Provider] - 1-2 days Manoj Pickens DO [Doctor of Osteopathic Medicine] - 1-2 days Time of Disposition: 21:23
[2023-09-02] MEDS: ACETAMINOPHEN TAB 325 MG TAB PO STA (21:42)
[2023-09-02] MEDS: KETOROLAC 15 MG/ML 1 ML VIAL IM STA (21:44)
[2023-09-02 21:56] VITALS: BP 185/90; PULSE 82
== END 2023-09-02 21:55 | disposition home or self-care (01) ==
LOC: EC 19:30
DX: S82.61XA Displaced fracture of lateral malleolus of right fibula, initial encounter for closed fracture (principal); S82.301A Unspecified fracture of lower end of right tibia, initial encounter for closed fracture; Z88.1 Allergy status to other antibiotic agents; Z91.09 Other allergy status, other than to drugs and biological substances; Z86.73 Personal history of transient ischemic attack (TIA), and cerebral infarction without residual deficits; Z79.01 Long term (current) use of anticoagulants; W18.2XXA Fall in (into) shower or empty bathtub, initial encounter; X50.1XXA Overexertion from prolonged static or awkward postures, initial encounter
CPT/HCPCS: 73610; 29515; 99283; 96372; J1885

== ENCOUNTER → 2023-09-08 | Outpatient (CLI) | payer MEDICARE ==
--- NOTE | 2023-09-08 13:13 | CT ---
EXAMINATION TYPE: CT ankle RT wo con DATE OF EXAM: 09/08/2023 COMPARISON: Radiograph 09/02/2023 HISTORY: 88-year-old female [id number] DISPLACED MEDIAL RIGHT TIBIA TECHNIQUE: Contiguous axial scanning of the right ankle without IV contrast. Coronal and sagittal rec onstructions performed. CT DLP: 267.2 mGycm Automated exposure control for dose reduction was used. FINDINGS: There is an unstable bimalleolar ankle fracture with circumferential soft tissue swelling. Moderate degenerative change in the midfoot along the talonavicular joint, navicular cuneiform joints , and at the fourth and fifth TMT joints. There is a oblique fracture involving the medial malleolus with slight 1 to 2 mm of impaction causing minimal step-off along the tibiotalar articular surface. This is a large fracture fragment which ext ends obliquely to the mid anterior aspect of the distal tibia at the fragment measuring 4.1 cm wide b y 3.8 cm craniocaudal by 1.7 cm AP. Refer to axial image 57. Additional oblique fracture of the lateral malleolus with slight 3 mm of posterior displacement. Pun ctate loose body debris measuring up to 4 mm along the anterior margin of the distal fibular fracture suggesting some localized comminution. No abnormal syndesmotic widening is seen. There is some bony irregularity along the posterior malleolus representing enthesopathy or spurring r ather than a fracture. Subtalar joint is aligned. Smooth delineation to the Achilles tendon. There is a tiny plantar heel sp ur. Background osteopenia. Prominent soft tissue swelling extends along the dorsal aspect of the midfoot . IMPRESSION: 1. UNSTABLE BIMALLEOLAR ANKLE FRACTURES. CIRCUMFERENTIAL SOFT TISSUE SWELLING WITH PROMINENT SOFT TIS LORA SWELLING EXTENDING TO THE DORSAL ASPECT OF THE MIDFOOT. 2. MINIMAL IMPACTION OF THE MEDIAL MALLEOLAR FRACTURE RESULTING IN SLIGHT 1 TO 2 MM STEP OFF ALONG TH E TIBIOTALAR ARTICULAR SURFACE. LARGE MEDIAL MALLEOLAR FRACTURE FRAGMENT WITH THE ANTERIOR MARGIN EXT ENDING TO THE MID ASPECT OF THE DISTAL TIBIA ABOVE. 3. THE OBLIQUE DISTAL FIBULAR FRACTURE SHOWS 3 MM OF POSTERIOR DISPLACEMENT AND SOME LOCALIZED COMMIN UTION ALONG THE ANTERIOR MARGIN.
== END | disposition home or self-care (01) ==
LOC: RADCTMAIN 12:32
PROVIDERS: ATTEND Orthopaedic Surgery
DX: S82.51XA Displaced fracture of medial malleolus of right tibia, initial encounter for closed fracture (principal); M79.89 Other specified soft tissue disorders; S82.61XA Displaced fracture of lateral malleolus of right fibula, initial encounter for closed fracture; S82.831A Other fracture of upper and lower end of right fibula, initial encounter for closed fracture; X58.XXXA Exposure to other specified factors, initial encounter